=== PATIENT | female | born 1945 | race Caucasian/White ===

== ENCOUNTER 2017-01-23 11:55 | Outpatient (CLI) | payer MEDICARE, OTHER | END 2017-01-23 11:56 | disposition home or self-care (01) | DX: R10.9 Unspecified abdominal pain (principal) ==

== ENCOUNTER 2017-01-24 18:54 | Outpatient (CLI) | payer MEDICARE, OTHER | END 2017-01-24 18:55 | disposition home or self-care (01) | DX: N20.0 Calculus of kidney (principal); K76.0 Fatty (change of) liver, not elsewhere classified; R10.9 Unspecified abdominal pain ==

== ENCOUNTER 2017-03-01 10:08 | Outpatient (CLI) | payer MEDICARE, OTHER ==
[2017-03-01] MEDS ORDERED: SODIUM CHLORIDE 0.9% IV ONE (13:14)
[2017-03-01] MEDS ORDERED: SINCALIDE IV ONE (13:14)
== END 2017-03-01 10:09 | disposition home or self-care (01) ==
DX: K31.89 Other diseases of stomach and duodenum (principal)
CPT/HCPCS: 78227; A9537

== ENCOUNTER 2017-04-07 10:36 | Outpatient (CLI) | payer MEDICARE, OTHER ==
[2017-04-07 11:06] LABS: CREATININE 1.2 mg/dL (0.4-1.0)
== END 2017-04-07 10:37 | disposition home or self-care (01) ==
LOC: LAB 10:36
PROVIDERS: ATTEND Physician Assistant
DX: R10.9 Unspecified abdominal pain (principal)
CPT/HCPCS: 36415; 82565; 84520

== ENCOUNTER 2017-06-06 08:00 | Outpatient (CLI) | payer MEDICARE, OTHER | END 2017-06-06 08:01 | disposition home or self-care (01) | LOC: LAB.R 08:00 | PROVIDERS: ATTEND Internal Medicine | DX: N30.90 Cystitis, unspecified without hematuria (principal) | CPT/HCPCS: 87086 ==

== ENCOUNTER 2017-06-09 09:53 | Outpatient (CLI) | payer MEDICARE, OTHER | END 2017-06-09 09:54 | disposition home or self-care (01) | LOC: LAB.R 09:53 | PROVIDERS: ATTEND Internal Medicine | DX: N30.90 Cystitis, unspecified without hematuria (principal) | CPT/HCPCS: 87086 ==

== ENCOUNTER 2017-08-14 09:27 | Outpatient (CLI) | payer MEDICARE, OTHER ==
[2017-08-14 10:09] LABS: HEMOGLOBIN A1C 0.74 g/dL
== END 2017-08-14 09:28 | disposition home or self-care (01) ==
LOC: LAB 09:27
PROVIDERS: ATTEND Nurse Practitioner Primary Care
DX: E11.9 Type 2 diabetes mellitus without complications (principal); Z79.899 Other long term (current) drug therapy
CPT/HCPCS: 36415; 82947; 83036

== ENCOUNTER 2017-11-17 08:50 | Outpatient (CLI) | payer MEDICARE, OTHER ==
[2017-11-17 09:34] LABS: ALBUMIN 3.8 g/dL (3.2-5.5); ALBUMIN/GLOBULIN RATIO 1.1 (1.0-2.2); BILIRUBIN,TOTAL 0.6 mg/dL (0.2-1.0); CALCIUM 9.1 mg/dL (8.5-10.3); CREATININE 1.1 mg/dL (0.4-1.0); HB2 TOTAL 14.4 g/dL; HEMOGLOBIN A1C 0.82 g/dL; HEMOGLOBIN A1C % 7.4 % (4.6-6.2); TOTAL PROTEIN 7.3 g/dL (6.7-8.2)
== END 2017-11-17 08:51 | disposition home or self-care (01) ==
LOC: LAB 08:50
PROVIDERS: ATTEND Nurse Practitioner Primary Care
DX: E11.65 Type 2 diabetes mellitus with hyperglycemia (principal)
CPT/HCPCS: 36415; 80053; 82043; 83036

== ENCOUNTER 2017-12-25 13:33 | Outpatient (CLI) | payer MEDICARE, OTHER ==
--- NOTE | 2017-12-26 17:22 | Mammography Report ---
DATE OF SERVICE: 12/25/2017 DIGITAL SCREENING MAMMOGRAM: 12/25/2017 CLINICAL INDICATION: A 72-year-old with history of benign biopsy for screening. COMPARISON: 12/2015, 12/2014, 06/2012, 06/2011, 05/2010. TECHNIQUE: Routine CC and MLO projections were obtained of the breasts. FINDINGS: The breasts again demonstrate heterogeneously dense fibroglandular parenchyma bilaterally. Coarse, typically benign calcifications are present. Post-biopsy changes in the right breast are stable. No suspicious masses, clustered microcalcifications, or regions of architectural distortion are identified. IMPRESSION: BENIGN FINDINGS. RECOMMENDATIONS: Routine annual screening unless otherwise clinically indicated. BIRADS category 2 benign findings. STANDARD QUALIFYING STATEMENTS 1. This examination was reviewed with the aid of Computed-Aided Detection (CAD). 2. A negative or benign imaging report should not delay biopsy if clinically suspicious findings are present. Consider surgical consultation if warranted. More than 5% of cancers are not identified by imaging. 3. Dense breasts may obscure an underlying neoplasm. TD: 12/26/2017 17:21
== END 2017-12-25 13:34 | disposition home or self-care (01) ==
LOC: DI 13:33
PROVIDERS: ATTEND Nurse Practitioner Primary Care
DX: Z12.31 Encounter for screening mammogram for malignant neoplasm of breast (principal)
CPT/HCPCS: 77067

== ENCOUNTER 2018-02-20 08:38 | Outpatient (CLI) | payer MEDICARE, OTHER ==
[2018-02-20 09:20] LABS: HB2 TOTAL 14.2 g/dL; HEMOGLOBIN A1C 0.72 g/dL; HEMOGLOBIN A1C % 6.8 % (4.6-6.2)
== END 2018-02-20 08:39 | disposition home or self-care (01) ==
LOC: LAB 08:38
PROVIDERS: ATTEND Nurse Practitioner Primary Care
DX: E11.65 Type 2 diabetes mellitus with hyperglycemia (principal)
CPT/HCPCS: 36415; 82947; 83036

== ENCOUNTER 2018-04-02 08:58 | Outpatient (CLI) | payer MEDICARE, OTHER ==
[2018-04-02 09:31] LABS: CREATININE 1.2 mg/dL (0.4-1.0)
== END 2018-04-02 08:59 | disposition home or self-care (01) ==
LOC: LAB 08:58
PROVIDERS: ATTEND Nurse Practitioner Primary Care
DX: R91.1 Solitary pulmonary nodule (principal)
CPT/HCPCS: 36415; 82565

== ENCOUNTER 2018-04-05 07:52 | Outpatient (CLI) | payer MEDICARE, OTHER ==
--- NOTE | 2018-04-05 10:05 | CT Report ---
REVISED: THIS REPORT WAS ORIGINALLY SIGNED ON04/05/2018 @ 1127. NO CHANGES WERE MADE TO THE REPORT. THE ORIGINAL [facility] REQUISITION WAS REPRINTED ON . CT CHEST WITHOUT CONTRAST: 04/05/2018 CLINICAL INDICATION: Followup pulmonary nodule on outside study. TECHNIQUE: Axial CT images of the chest were obtained without intravenous contrast. COMPARISON: Comparison is made to report of outside abdominal CT of 04/10/2017. If images become available for direct comparison, an addendum will be issued. FINDINGS: The heart and great vessels demonstrate mild atherosclerotic calcification. No hilar or mediastinal lymphadenopathy is appreciated. The lungs demonstrate emphysematous changes. The nodule in the posterolateral right lower lobe measures 8 x 7 mm. No other pulmonary nodule is identified. No focal infiltrate, effusion, or pneumothorax is present. Osseous structures demonstrate degenerative changes. Limited evaluation of upper abdominal structures demonstrates minimal fullness of the medial limb of the left adrenal gland and multiple renal cysts, with a hyperdense cyst arising from the upper pole of the left kidney. IMPRESSION: 8 X 7 MM NODULE IN THE POSTEROLATERAL RIGHT LOWER LOBE. FOLLOWUP CT IN 3-6 MONTHS IS RECOMMENDED BY [employer] IN THIS HIGH RISK PATIENT. CT DOSE REDUCTION STATEMENT In accordance with CT protocol optimization, one or more of the following dose reduction techniques were utilized for this exam: automated exposure control, adjustment of mA and/or KV based on patient size, or use of iterative reconstructive technique. TD: 04/05/2018 09:28 ELIER
== END 2018-04-05 07:53 | disposition home or self-care (01) ==
LOC: DI 07:52
PROVIDERS: ATTEND Nurse Practitioner Primary Care
DX: R91.1 Solitary pulmonary nodule (principal)
CPT/HCPCS: 71250

== ENCOUNTER 2018-05-10 08:16 | Outpatient (CLI) | payer MEDICARE, OTHER ==
[2018-05-10 08:52] LABS: BASOPHILS # (AUTO) 0.1 10^3/uL (0.0-0.1); BASOPHILS % (AUTO) 0.7 %; EOSINOPHILS # (AUTO) 0.3 10^3/uL (0.0-0.7); EOSINOPHILS % (AUTO) 2.9 %; HGB - HEMOGLOBIN 12.4 g/dL (12.0-16.0); LYMPHOCYTES # (AUTO) 2.1 10^3/uL (1.5-3.5); LYMPHOCYTES % (AUTO) 24.6 %; MEAN CORPUSCULAR HEMOGLOBIN 29.5 pg (27.0-31.0); MEAN CORPUSCULAR HGB CONC 33.3 g/dL (32.0-36.0); MEAN CORPUSCULAR VOLUME 88.4 fL (81.0-99.0); MEAN PLATELET VOLUME 9.8 fL (7.9-10.8); MONOCYTES # (AUTO) 0.7 10^3/uL (0.0-1.0); MONOCYTES % (AUTO) 8.7 %; NEUTROPHILS # (AUTO) 5.4 10^3/uL (1.5-6.6); NEUTROPHILS % (AUTO) 63.1 %; PLT - PLATELET COUNT 196 10^3/uL (130-450); RED BLOOD COUNT 4.19 10^6/uL (4.20-5.40); WHITE BLOOD COUNT 8.6 x10^3/uL (4.8-10.8)
[2018-05-10 08:58] LABS: ALBUMIN 4.1 g/dL (3.2-5.5); ALBUMIN/GLOBULIN RATIO 1.2 (1.0-2.2); ALKALINE PHOSPHATASE 53 IU/L (42-121); ALT ALANINE AMINOTRANSFERASE 21 IU/L (10-60); AST ASPARTATE AMINOTRANSFERASE 21 IU/L (10-42); BILIRUBIN,TOTAL 0.4 mg/dL (0.2-1.0); BUN - BLOOD UREA NITROGEN 18 mg/dL (6-20); CALCIUM 9.2 mg/dL (8.5-10.3); CARBON DIOXIDE - CO2 29 mmol/L (21-32); CHLORIDE 100 mmol/L (101-111); CHOL/HDL RATIO 2.9 (<4.4); CHOLESTEROL 103 mg/dL; GFR - MDRD 54 (>89); GLUCOSE 158 mg/dL (70-100); HDL CHOLESTEROL 35 mg/dL; LDL CHOLESTEROL,CALCULATED 47 mg/dL; LDL/HDL RATIO 1.3 (<4.4); SODIUM 137 mmol/L (135-145); TOTAL PROTEIN 7.5 g/dL (6.7-8.2); VLDL CHOLESTEROL 21 mg/dL
[2018-05-10 09:25] LABS: HB2 TOTAL 13.8 g/dL; HEMOGLOBIN A1C 0.66 g/dL; HEMOGLOBIN A1C % 6.5 % (4.6-6.2)
== END 2018-05-10 08:17 | disposition home or self-care (01) ==
LOC: LAB 08:16
PROVIDERS: ATTEND Nurse Practitioner Primary Care
DX: M81.8 Other osteoporosis without current pathological fracture (principal); E88.81 Metabolic syndrome and other insulin resistance; Z79.899 Other long term (current) drug therapy; D12.6 Benign neoplasm of colon, unspecified; R91.1 Solitary pulmonary nodule; E03.9 Hypothyroidism, unspecified; I10 Essential (primary) hypertension; E78.5 Hyperlipidemia, unspecified; E11.9 Type 2 diabetes mellitus without complications
CPT/HCPCS: 36415; 80053; 80061; 82043; 82306; 83036; 83721; 84443; 85025

== ENCOUNTER 2019-04-01 08:00 | Outpatient (CLI) | payer MEDICARE, OTHER ==
[2019-04-01 16:17] LABS: CALCIUM 9.2 mg/dL (8.5-10.3)
[2019-04-01 16:23] LABS: HB2 TOTAL 13.1 g/dL; HEMOGLOBIN A1C 0.66 g/dL; HEMOGLOBIN A1C % 6.8 % (4.6-6.2)
== END 2019-04-01 23:59 | disposition home or self-care (01) ==
LOC: LAB 08:00
PROVIDERS: ATTEND Nurse Practitioner
DX: E11.65 Type 2 diabetes mellitus with hyperglycemia (principal)
CPT/HCPCS: 36415; 80048; 83036

== ENCOUNTER 2019-07-26 17:10 | Outpatient (CLI) | payer MEDICARE, OTHER ==
--- NOTE | 2019-07-29 14:33 | Ultrasound Report ---
Reason: RENAL CYST Procedure Date: 07/26/2019 Accession Number: [id number] / [id number] Procedure: US - Retroperitoneal CPT Code: FULL RESULT: EXAM: RENAL ULTRASOUND EXAM DATE: 07/26/2019 06:30 PM. CLINICAL HISTORY: Renal cysts. COMPARISON: ABDOMEN TECHNIQUE: Real-time scanning was performed with static images obtained. FINDINGS: Right Kidney: 11.2 x 4.1 x 5.5 cm. There are multiple simple renal cortical cysts, the largest one in the mid cortex, 2.7 x 2.7 x 2.8 cm. No stones, contour-deforming masses, or hydronephrosis. Left Kidney: 11.6 x 4.8 x 9.2 cm. There are multiple simple renal cortical cysts, the largest one in the upper cortex, 5.6 x 6.6 x 6.5 cm. There is mild dilatation of the left renal pelvis without visualized stones, filling defect or contour-deforming masses. Bladder: Bilateral jets seen. The prevoid bladder volume was 346 cc. The postvoid bladder volume was 14.2 cc. Other: None. IMPRESSION: 1. Bilateral multiple simple renal cortical cysts. 2. Negative for right renal stones, hydronephrosis or contour-deforming renal mass. 3. Mild dilatation of the left renal pelvis with preserved left ureteral jets, without visualized filling defect or stone, uncertain etiology. If there is clinical concern for obstructing lesion in the left ureter or left renal stone, further evaluation with CT KUB is recommended. RADIA
== END 2019-07-26 17:11 | disposition home or self-care (01) ==
LOC: DI 17:10
PROVIDERS: ATTEND Urology
DX: Q61.02 Congenital multiple renal cysts (principal)
CPT/HCPCS: 76770

== ENCOUNTER 2019-08-15 14:39 | Outpatient (CLI) | payer MEDICARE, OTHER ==
--- NOTE | 2019-08-16 16:19 | XRAY Report ---
Reason: ACUT L HEEL PAIN Procedure Date: 08/15/2019 Accession Number: [id number] / [id number] Procedure: XR - Calcaneus LT CPT Code: FULL RESULT: EXAM: LEFT CALCANEUS RADIOGRAPHY, 2 VIEWS EXAM DATE: 08/15/2019 03:06 PM. CLINICAL HISTORY: Acute left heel pain in a 74-year-old female. COMPARISON: None. TECHNIQUE: Frontal and lateral views. FINDINGS: Bones: Moderate hypertrophic spurring of the tibial spines and patella. No fractures or bone lesions. Joints: Normal. No effusion. No subluxations. The ankle mortise is normally aligned. Soft Tissues: Mild to moderate soft tissue swelling along the posterior and inferior aspect of the calcaneus. No soft tissue gas or foreign body. IMPRESSION: Moderate hypertrophic spurring of the tibial spines and patella with underlying soft tissue swelling. No joint abnormality. No fracture, lytic or destructive process. RADIA
== END 2019-08-15 14:40 | disposition home or self-care (01) ==
LOC: DI 14:39
PROVIDERS: ATTEND Podiatrist
DX: M77.8 Other enthesopathies, not elsewhere classified (principal)

== ENCOUNTER 2019-08-19 14:09 | Outpatient (CLI) | payer MEDICARE, OTHER ==
--- NOTE | 2019-08-20 14:31 | Mammography Report ---
Reason: SCREENING MAMMO Procedure Date: 08/19/2019 Accession Number: [id number] / [id number] Procedure: CRYS - Screening Mammo w/Corey CPT Code: FULL RESULT: EXAM: Screening Mammo w/Corey DATE: 08/19/2019 3:33 PM CLINICAL HISTORY: Screening TECHNIQUE: (B) - Bilateral CC and MLO views were obtained. COMPARISON: 12/25/2017, 12/29/2015 PARENCHYMAL PATTERN: (D) - The breasts demonstrate heterogeneously dense fibroglandular parenchyma bilaterally. FINDINGS: The patient refused the right MLO 3-D series, but a 2-D right MLO was obtained. There are no suspicious masses, calcifications, or areas of distortion. IMPRESSION: Negative examination. BI-RADS category 1. RECOMMENDATION: (ANNUAL) - Recommend routine annual screening mammography. BI-RADS CATEGORY: (1) - Negative. STANDARD QUALIFYING STATEMENTS: 1. This examination was not reviewed with the aid of Computer-Aided Detection (CAD). 2. A negative or benign imaging report should not preclude biopsy if clinically suspicious findings are present. 3. Dense breasts may obscure an underlying neoplasm. 4. This examination was reviewed with the aid of 3D breast imaging (tomosynthesis).
== END 2019-08-19 14:10 | disposition home or self-care (01) ==
LOC: DI 14:09
DX: Z12.31 Encounter for screening mammogram for malignant neoplasm of breast (principal)
CPT/HCPCS: 77063; 77067

== ENCOUNTER 2019-08-23 08:55 | Outpatient (CLI) | payer MEDICARE, OTHER ==
[2019-08-23 09:08] LABS: BASOPHILS # (AUTO) 0.1 10^3/uL (0.0-0.1); BASOPHILS % (AUTO) 0.8 %; EOSINOPHILS # (AUTO) 0.3 10^3/uL (0.0-0.7); EOSINOPHILS % (AUTO) 2.9 %; HGB - HEMOGLOBIN 13.1 g/dL (12.0-16.0); LYMPHOCYTES # (AUTO) 2.6 10^3/uL (1.5-3.5); LYMPHOCYTES % (AUTO) 30.3 %; MEAN CORPUSCULAR HEMOGLOBIN 29.4 pg (27.0-31.0); MEAN CORPUSCULAR HGB CONC 32.6 g/dL (32.0-36.0); MEAN CORPUSCULAR VOLUME 90.1 fL (81.0-99.0); MEAN PLATELET VOLUME 11.7 fL (7.9-10.8); MONOCYTES # (AUTO) 0.8 10^3/uL (0.0-1.0); MONOCYTES % (AUTO) 9.3 %; NEUTROPHILS # (AUTO) 4.8 10^3/uL (1.5-6.6); NEUTROPHILS % (AUTO) 56.4 %; PLT - PLATELET COUNT 219 10^3/uL (130-450); RED BLOOD COUNT 4.46 10^6/uL (4.20-5.40); RED CELL DISTRIBUTION WIDTH 14.6 % (12.0-15.0); WHITE BLOOD COUNT 8.6 x10^3/uL (4.8-10.8)
[2019-08-23 09:25] LABS: HB2 TOTAL 14.1 g/dL; HEMOGLOBIN A1C 0.66 g/dL; HEMOGLOBIN A1C % 6.4 % (4.6-6.2)
[2019-08-23 09:40] LABS: ALBUMIN 3.9 g/dL (3.2-5.5); ALBUMIN/GLOBULIN RATIO 1.1 (1.0-2.2); ALKALINE PHOSPHATASE 55 IU/L (42-121); ALT ALANINE AMINOTRANSFERASE 22 IU/L (10-60); AST ASPARTATE AMINOTRANSFERASE 19 IU/L (10-42); BILIRUBIN,TOTAL 0.8 mg/dL (0.2-1.0); BUN - BLOOD UREA NITROGEN 17 mg/dL (6-20); CALCIUM 9.1 mg/dL (8.5-10.3); CARBON DIOXIDE - CO2 26 mmol/L (21-32); CHLORIDE 103 mmol/L (101-111); CHOLESTEROL 101 mg/dL; CREATININE 1.2 mg/dL (0.4-1.0); GFR - MDRD 44 (>89); GLUCOSE 157 mg/dL (70-100); HDL CHOLESTEROL 34 mg/dL; LDL CHOLESTEROL,CALCULATED 50 mg/dL; LDL/HDL RATIO 1.5 (<4.4); SODIUM 140 mmol/L (135-145); TOTAL PROTEIN 7.5 g/dL (6.7-8.2); VLDL CHOLESTEROL 17 mg/dL
== END 2019-08-23 08:56 | disposition home or self-care (01) ==
LOC: LAB 08:55
PROVIDERS: ATTEND Nurse Practitioner
DX: J44.9 Chronic obstructive pulmonary disease, unspecified (principal); M85.80 Other specified disorders of bone density and structure, unspecified site; M19.90 Unspecified osteoarthritis, unspecified site; E11.8 Type 2 diabetes mellitus with unspecified complications; E78.5 Hyperlipidemia, unspecified; E03.9 Hypothyroidism, unspecified; I10 Essential (primary) hypertension
CPT/HCPCS: 36415; 80053; 80061; 82306; 83036; 83721; 84443; 85025

== ENCOUNTER 2020-04-06 08:29 | Outpatient (CLI) | payer MEDICARE, OTHER ==
[2020-04-06 09:08] LABS: CALCIUM 9.2 mg/dL (8.5-10.3); CREATININE 1.1 mg/dL (0.4-1.0)
[2020-04-06 09:16] LABS: HB2 TOTAL 13.1 g/dL; HEMOGLOBIN A1C 0.62 g/dL; HEMOGLOBIN A1C % 6.5 % (4.6-6.2)
== END 2020-04-06 08:30 | disposition home or self-care (01) ==
LOC: LAB 08:29
PROVIDERS: ATTEND Family Medicine
DX: E11.65 Type 2 diabetes mellitus with hyperglycemia (principal); E78.5 Hyperlipidemia, unspecified; E03.9 Hypothyroidism, unspecified; I10 Essential (primary) hypertension
CPT/HCPCS: 36415; 80048; 83036

== ENCOUNTER 2020-11-19 14:11 | Outpatient (CLI) | payer MEDICARE, OTHER ==
[2020-11-19 14:34] LABS: BASOPHILS # (AUTO) 0.1 10^3/uL (0.0-0.1); BASOPHILS % (AUTO) 0.6 %; EOSINOPHILS # (AUTO) 0.3 10^3/uL (0.0-0.7); EOSINOPHILS % (AUTO) 3.1 %; HCT - HEMATOCRIT 41.8 % (37.0-47.0); HGB - HEMOGLOBIN 13.6 g/dL (12.0-16.0); LYMPHOCYTES # (AUTO) 2.5 10^3/uL (1.5-3.5); LYMPHOCYTES % (AUTO) 28.7 %; MEAN CORPUSCULAR HEMOGLOBIN 29.4 pg (27.0-31.0); MEAN CORPUSCULAR HGB CONC 32.5 g/dL (32.0-36.0); MEAN CORPUSCULAR VOLUME 90.5 fL (81.0-99.0); MEAN PLATELET VOLUME 11.5 fL (7.9-10.8); MONOCYTES # (AUTO) 0.8 10^3/uL (0.0-1.0); MONOCYTES % (AUTO) 9.2 %; NEUTROPHILS % (AUTO) 58.1 %; PLT - PLATELET COUNT 209 10^3/uL (130-450); RED BLOOD COUNT 4.62 10^6/uL (4.20-5.40); RED CELL DISTRIBUTION WIDTH 14.4 % (12.0-15.0); WHITE BLOOD COUNT 8.6 x10^3/uL (4.8-10.8)
[2020-11-19 14:44] LABS: CALCIUM 9.3 mg/dL (8.5-10.3); CREATININE 1.3 mg/dL (0.4-1.0); POTASSIUM 3.8 mmol/L (3.5-5.0)
[2020-11-19 15:05] LABS: THYROID STIMULATING HORMONE 3.16 uIU/mL (0.34-5.60)
[2020-11-19 15:06] LABS: FREE T3 3.48 pg/mL (2.5-3.9)
[2020-11-19 15:07] LABS: FREE T4 (FREE THYROXINE) 1.16 ng/dL (0.58-1.64)
[2020-11-19 19:40] LABS: ESTIMATED AVERAGE GLUCOSE 154 mg/dL (70-100)
== END 2020-11-19 14:12 | disposition home or self-care (01) ==
LOC: LAB 14:11
PROVIDERS: ATTEND Family Medicine
DX: E11.65 Type 2 diabetes mellitus with hyperglycemia (principal); E03.9 Hypothyroidism, unspecified
CPT/HCPCS: 36415; 80048; 83036; 84439; 84443; 84481; 85025

== ENCOUNTER 2021-05-20 08:38 | Outpatient (CLI) | payer MEDICARE, OTHER ==
[2021-05-20 09:06] LABS: BASOPHILS # (AUTO) 0.1 10^3/uL (0.0-0.1); BASOPHILS % (AUTO) 0.6 %; EOSINOPHILS # (AUTO) 0.3 10^3/uL (0.0-0.7); EOSINOPHILS % (AUTO) 3.3 %; HCT - HEMATOCRIT 41.4 % (37.0-47.0); HGB - HEMOGLOBIN 13.4 g/dL (12.0-16.0); LYMPHOCYTES # (AUTO) 1.6 10^3/uL (1.5-3.5); LYMPHOCYTES % (AUTO) 19.1 %; MEAN CORPUSCULAR HEMOGLOBIN 28.9 pg (27.0-31.0); MEAN CORPUSCULAR HGB CONC 32.4 g/dL (32.0-36.0); MEAN CORPUSCULAR VOLUME 89.4 fL (81.0-99.0); MEAN PLATELET VOLUME 11.5 fL (7.9-10.8); MONOCYTES # (AUTO) 0.8 10^3/uL (0.0-1.0); NEUTROPHILS # (AUTO) 5.6 10^3/uL (1.5-6.6); NEUTROPHILS % (AUTO) 66.8 %; PLT - PLATELET COUNT 202 10^3/uL (130-450); RED BLOOD COUNT 4.63 10^6/uL (4.20-5.40); RED CELL DISTRIBUTION WIDTH 14.6 % (12.0-15.0); WHITE BLOOD COUNT 8.4 x10^3/uL (4.8-10.8)
[2021-05-20 09:29] LABS: CREATININE,URINE 53.2 mg/dL; MICROALBUM/CREATININE RATIO,UR 11.3 ug/mg (<30.0); MICROALBUMIN,URINE 0.6 mg/dL (0-300.0)
[2021-05-20 09:33] LABS: THYROID STIMULATING HORMONE 2.26 uIU/mL (0.34-5.60)
[2021-05-20 09:43] LABS: ALBUMIN 4.1 g/dL (3.2-5.5); ALBUMIN/GLOBULIN RATIO 1.2 (1.0-2.2); ALKALINE PHOSPHATASE 66 IU/L (42-121); ALT ALANINE AMINOTRANSFERASE 24 IU/L (10-60); AST ASPARTATE AMINOTRANSFERASE 19 IU/L (10-42); BILIRUBIN,TOTAL 0.7 mg/dL (0.2-1.0); BUN - BLOOD UREA NITROGEN 14 mg/dL (6-20); CALCIUM 9.1 mg/dL (8.5-10.3); CARBON DIOXIDE - CO2 25 mmol/L (21-32); CHLORIDE 103 mmol/L (101-111); CHOL/HDL RATIO 3.2 (<4.4); CHOLESTEROL 111 mg/dL; GFR - MDRD 54 (>89); GLUCOSE 156 mg/dL (70-100); HDL CHOLESTEROL 35 mg/dL; LDL CHOLESTEROL,CALCULATED 60 mg/dL; LDL/HDL RATIO 1.7 (<4.4); POTASSIUM 3.9 mmol/L (3.5-5.0); SODIUM 137 mmol/L (135-145); TOTAL PROTEIN 7.4 g/dL (6.7-8.2); TRIGLYCERIDES 82 mg/dL; VLDL CHOLESTEROL 16 mg/dL
[2021-05-20 12:49] LABS: ESTIMATED AVERAGE GLUCOSE 140 mg/dL (70-100); HEMOGLOBIN A1c% 6.5 % (4.27-6.07)
== END 2021-05-20 08:39 | disposition home or self-care (01) ==
LOC: LAB 08:38
PROVIDERS: ATTEND Family Medicine
DX: E11.40 Type 2 diabetes mellitus with diabetic neuropathy, unspecified (principal); J44.9 Chronic obstructive pulmonary disease, unspecified; M85.80 Other specified disorders of bone density and structure, unspecified site; M19.90 Unspecified osteoarthritis, unspecified site; E03.9 Hypothyroidism, unspecified; I10 Essential (primary) hypertension
CPT/HCPCS: 36415; 80053; 80061; 82043; 82570; 83036; 83721; 84443; 85025

== ENCOUNTER 2021-08-03 07:46 | Outpatient (CLI) | payer MEDICARE ==
--- NOTE | 2021-08-04 12:00 | Mammography Report ---
BILATERAL DIGITAL DIAGNOSTIC MAMMOGRAM 3D/2D: 08/03/2021 CLINICAL: Palpable left breast lump. Comparison is made to exams dated: 08/19/2019 mammogram, 12/25/2017 mammogram, 12/29/2015 mammogram, 01/06 mammogram, 07/18/2012 mammogram, and 07/20/2011 mammogram - [facility]. The ti ssue of both breasts is heterogeneously dense. This may lower the sensitivity of mammography. No significant masses, calcifications, or other findings are seen in either breast. Stable subtle architectural distortion of the posterior depth, superior aspect and middle depth of up per outer quadrant consistent with reported history of two prior biopsies. IMPRESSION: INCOMPLETE: NEEDS ADDITIONAL IMAGING EVALUATION There is no abnormality seen in the left breast to correspond with the area of clinical concern and p alpable abnormality indicated by triangular marker in the middle depth in the lower aspect, however, an ultrasound is recommended for further evaluation and is scheduled to immediately follow this exami nation. This exam was interpreted at Station ID: [id number]. NOTE: For mammograms, a report in lay terms will be sent to the patient. Approximately 15% of breast malignancies will not be visualized mammographically. In the management of a palpable breast mass, a negative mammogram must not discourage biopsy of a clinically suspicious lesion. Electronically Signed By: Andrew Luis M.D. aty/:08/03/2021 08:49:07 ACR BI-RADS Category 0: Incomplete 3340F PARENCHYMAL PATTERN: (D) - The breast(s) demonstrate(s) heterogeneously dense fibroglandular betsy trejo. BI-RADS CATEGORY: (0) - 0 Ultrasound [id number] Immediate follow-up LATERALITY: (L)
--- NOTE | 2021-08-04 12:01 | Ultrasound Report ---
LIMITED ULTRASOUND OF LEFT BREAST: 08/03/2021 CLINICAL: Palpable left breast lump. Comparison is made to exams dated: 08/03/2021 mammogram, 08/19/2019 mammogram, 12/25/2017 mammogram, 12/29 mammogram, 01/06/2015 mammogram, and 07/18/2012 mammogram - [facility]. Real-time ultrasound of the left breast 6-7 o'clock region was performed. Arvizu scale images of the real-time examination were reviewed. No significant abnormalities were seen sonographically in the left breast. IMPRESSION: NEGATIVE There is no sonographic evidence of malignancy. There are no abnormalities seen in the left breast to correspond with the areas of clinical concern a nd palpable abnormalities at 6 and 7 o'clock, however, recommend clinical follow up for persistent or worsening symptoms, or development of any clinically suspicious findings. A 1 year screening mammogram is recommended. Findings and recommendations were conveyed to the patient during today's evaluation. This exam was interpreted at Station ID: [id number]. Electronically Signed By: Andrew Luis M.D. aty/:08/03/2021 09:23:05 Ultrasound BI-RADS: 1 Negative BI-RADS CATEGORY: (1) - 1 RECOMMENDATION: (ANNUAL) - Recommend routine annual screening mammography. [id number] 1 year screening LATERALITY: (B)
== END 2021-08-03 07:47 | disposition home or self-care (01) ==
LOC: DI 07:46
PROVIDERS: ATTEND Family Medicine
DX: N63.0 Unspecified lump in unspecified breast (principal); R92.8 Other abnormal and inconclusive findings on diagnostic imaging of breast

== ENCOUNTER 2021-09-17 10:48 | Outpatient (CLI) | payer MEDICARE ==
--- NOTE | 2021-09-20 11:18 | CT Report ---
PROCEDURE: CHEST WO INDICATIONS: LUNG CA TECHNIQUE: Noncontrast 1mm axial images were acquired from the pulmonary apices to the posterior costophrenic an gles. Axial 5 mm soft tissue kernel reconstructions were performed as well as 8 mm axial MIP and cor onal and sagittal 5 mm reformations. For radiation dose reduction, the following was used: automate d exposure control, adjustment of mA and/or kV according to patient size. COMPARISON: CT chest 04/05/2018 FINDINGS: Image quality: Excellent. Lungs and pleura: No acute air space opacities. No pleural effusions or pneumothorax. Central and peripheral airways are patent and normal in caliber. Previously identified nodules in the posterior lateral right lower lobe on CT chest in 2018 is no longer visualized. Groundglass appearing nodule wi thin the right upper lobe measuring 6 mm on series 4 image 59 is unchanged, as is 4 mm nodule in the left upper lobe on series 4 image 51. No new nodules are identified. Emphysematous changes are presen t with bulla, unchanged.. Mediastinum: Heart size is normal. No pericardial effusion. No mediastinal adenopathy by size crit eria. Thoracic aorta and central pulmonary arteries are normal in size. Esophagus is normal in perfecto andrew. No hiatal hernia. Bones and chest wall: No suspicious bony lesions. No vertebral body compression fractures. No axil randell or supraclavicular adenopathy by size criteria. The thyroid is normal in size and there are no incidental findings. Abdomen: Bilateral low-attenuation renal cysts as well as punctate nonobstructing calcifications are unchanged. Superior pole hyperdense mass measuring 5.4 cm has increased in size from 3.5 cm in 2018. Visualized upper abdominal solid organs and bowel loops appear normal in the absence of contrast. IMPRESSION: 1. Previously identified nodules in the posterior lateral right lower lobe in 2018 are no longer visu alized. 2. Subcentimeter upper lobe groundglass appearing nodules are unchanged. 3. Increased size of presumed hyperdense left renal cyst. As clinically indicated, ultrasound may be obtained for additional follow-up evaluation. CLINICAL RECOMMENDATION STATEMENTS: In patients <35 years with an ITN detected on CT, MRI, or extrathyroidal ultrasound, the Committee re commends further evaluation with dedicated thyroid ultrasound if the nodule is "e1 cm and has no susp icious imaging features, and if the patient has normal life expectancy. In patients "e35 years with an ITN detected on CT, MRI, or extrathyroidal ultrasound, the Committee r ecommends further evaluation with dedicated thyroid ultrasound if the nodule is "e1.5 cm and has no s uspicious imaging features, and if the patient has normal life expectancy. (ACR, 2014) Reviewed by: Rowena Amato MD on 09/20/2021 11:17 AM PDT Approved by: Rowena Amato MD on 09/20/2021 11:17 AM PDT Station ID: [id number]
== END 2021-09-17 10:49 | disposition home or self-care (01) ==
LOC: DI 10:48
PROVIDERS: ATTEND Nurse Practitioner
DX: Z08 Encounter for follow-up examination after completed treatment for malignant neoplasm (principal); Z85.118 Personal history of other malignant neoplasm of bronchus and lung; R91.8 Other nonspecific abnormal finding of lung field

== ENCOUNTER 2021-10-11 09:47 | Outpatient (CLI) | payer MEDICARE ==
[2021-10-11 10:17] LABS: CALCIUM 9.1 mg/dL (8.5-10.3); CREATININE 1.1 mg/dL (0.4-1.0); POTASSIUM 4.1 mmol/L (3.5-5.0)
[2021-10-11 10:48] LABS: ESTIMATED AVERAGE GLUCOSE 143 mg/dL (70-100); HEMOGLOBIN A1c% 6.6 % (4.27-6.07)
== END 2021-10-11 09:48 | disposition home or self-care (01) ==
LOC: LAB 09:47
PROVIDERS: ATTEND Family Medicine
DX: E11.9 Type 2 diabetes mellitus without complications (principal); E78.5 Hyperlipidemia, unspecified; I10 Essential (primary) hypertension
CPT/HCPCS: 36415; 80048; 82043; 82570; 83036

== ENCOUNTER 2022-01-10 09:44 | Outpatient (CLI) | payer MEDICARE ==
[2022-01-10 10:39] LABS: BASOPHILS % (AUTO) 0.5 %; EOSINOPHILS # (AUTO) 0.2 10^3/uL (0.0-0.7); EOSINOPHILS % (AUTO) 2.8 %; HCT - HEMATOCRIT 40.8 % (37.0-47.0); HGB - HEMOGLOBIN 13.2 g/dL (12.0-16.0); LYMPHOCYTES # (AUTO) 2.1 10^3/uL (1.5-3.5); LYMPHOCYTES % (AUTO) 27.7 %; MEAN CORPUSCULAR HEMOGLOBIN 28.6 pg (27.0-31.0); MEAN CORPUSCULAR HGB CONC 32.4 g/dL (32.0-36.0); MEAN CORPUSCULAR VOLUME 88.5 fL (81.0-99.0); MEAN PLATELET VOLUME 11.4 fL (7.9-10.8); MONOCYTES # (AUTO) 0.7 10^3/uL (0.0-1.0); MONOCYTES % (AUTO) 9.4 %; NEUTROPHILS # (AUTO) 4.5 10^3/uL (1.5-6.6); NEUTROPHILS % (AUTO) 59.3 %; PLT - PLATELET COUNT 197 10^3/uL (130-450); RED BLOOD COUNT 4.61 10^6/uL (4.20-5.40); RED CELL DISTRIBUTION WIDTH 14.6 % (12.0-15.0); WHITE BLOOD COUNT 7.6 x10^3/uL (4.8-10.8)
[2022-01-10 10:49] LABS: ALBUMIN 3.9 g/dL (3.2-5.5); ALBUMIN/GLOBULIN RATIO 1.3 (1.0-2.2); ALKALINE PHOSPHATASE 65 IU/L (42-121); ALT ALANINE AMINOTRANSFERASE 21 IU/L (10-60); AST ASPARTATE AMINOTRANSFERASE 18 IU/L (10-42); BILIRUBIN,TOTAL 0.7 mg/dL (0.2-1.0); BUN - BLOOD UREA NITROGEN 19 mg/dL (6-20); CALCIUM 9.1 mg/dL (8.5-10.3); CARBON DIOXIDE - CO2 26 mmol/L (21-32); CHLORIDE 102 mmol/L (101-111); CHOL/HDL RATIO 2.9 (<4.4); CHOLESTEROL 118 mg/dL; CREATININE 1.3 mg/dL (0.4-1.0); GFR - MDRD 40 (>89); GLUCOSE 156 mg/dL (70-100); HDL CHOLESTEROL 41 mg/dL; LDL CHOLESTEROL,CALCULATED 54 mg/dL; LDL/HDL RATIO 1.3 (<4.4); SODIUM 137 mmol/L (135-145); TRIGLYCERIDES 114 mg/dL; VLDL CHOLESTEROL 23 mg/dL
[2022-01-10 11:01] LABS: THYROID STIMULATING HORMONE 2.88 uIU/mL (0.34-5.60)
[2022-01-10 12:35] LABS: ESTIMATED AVERAGE GLUCOSE 143 mg/dL (70-100); HEMOGLOBIN A1c% 6.6 % (4.27-6.07)
[2022-01-10 13:26] LABS: CREATININE,URINE 256.1 mg/dL; MICROALBUM/CREATININE RATIO,UR 29.3 ug/mg (<30.0); MICROALBUMIN,URINE 7.5 mg/dL (0-300.0)
== END 2022-01-10 09:45 | disposition home or self-care (01) ==
LOC: LAB 09:44
PROVIDERS: ATTEND Family Medicine
DX: J45.991 Cough variant asthma (principal); C34.31 Malignant neoplasm of lower lobe, right bronchus or lung; E03.9 Hypothyroidism, unspecified; I10 Essential (primary) hypertension; E11.9 Type 2 diabetes mellitus without complications
CPT/HCPCS: 36415; 80053; 80061; 82043; 82570; 83036; 83721; 84443; 85025

== ENCOUNTER 2022-03-24 10:45 | Outpatient (CLI) | payer MEDICARE ==
--- NOTE | 2022-03-24 13:16 | CT Report ---
PROCEDURE: CHEST WO INDICATIONS: LUNG CA TECHNIQUE: Noncontrast 1mm axial images were acquired from the pulmonary apices to the posterior costophrenic an gles. Axial 5 mm soft tissue kernel reconstructions were performed as well as 8 mm axial MIP and cor onal and sagittal 5 mm reformations. For radiation dose reduction, the following was used: automate d exposure control, adjustment of mA and/or kV according to patient size. COMPARISON: CT chest dated 09/17/2021, retroperitoneal ultrasound dated 07/26/2019. FINDINGS: Image quality: Excellent. Lungs and pleura: Mild centrilobular emphysema. There is a stable 3 mm pulmonary nodule in the right lower lobe on image 183/4 of the current study and image 188/6 of the previous study. There is a lachelle cified granuloma present in the right upper lobe on image 188/4. No acute air space opacities. No pl eural effusions or pneumothorax. Central and peripheral airways are patent and normal in caliber. Mediastinum: Heart size is normal. No pericardial effusion. No mediastinal adenopathy by size crit eria. Thoracic aorta and central pulmonary arteries are normal in size. Esophagus is normal in perfecto andrew. No hiatal hernia. Bones and chest wall: No suspicious bony lesions. No vertebral body compression fractures. No axil randell or supraclavicular adenopathy by size criteria. The thyroid is normal in size and there are no incidental findings. Abdomen: Again noted is a spherical exophytic hyperdense mass off of the upper pole of the left kidne y. It is assumed to represent a hyperdense cyst, but has increased in size over time. It measures 5.6 cm maximum diameter. Also present is a large exophytic middle pole left renal cyst. IMPRESSION: 1. Mild centrilobular emphysema. 2. Stable 3 mm right lower lobe pulmonary nodule. Patient also has a calcified granuloma. 3. No significant changes since the most recent prior study. 4. 5.6 cm presumed hyperdense cyst off the upper pole left kidney. This lesion has been growing over time. Consider renal ultrasound to exclude a solid lesion. CLINICAL RECOMMENDATION STATEMENTS: In patients <35 years with an ITN detected on CT, MRI, or extrathyroidal ultrasound, the Committee re commends further evaluation with dedicated thyroid ultrasound if the nodule is "e1 cm and has no susp icious imaging features, and if the patient has normal life expectancy. In patients "e35 years with an ITN detected on CT, MRI, or extrathyroidal ultrasound, the Committee r ecommends further evaluation with dedicated thyroid ultrasound if the nodule is "e1.5 cm and has no s uspicious imaging features, and if the patient has normal life expectancy. (ACR, 2014) Reviewed by: Desmond Garcia MD on 03/24/2022 1:15 PM PDT Approved by: Desmond Garcia MD on 03/24/2022 1:15 PM PDT Station ID: [id number]
== END 2022-03-24 10:46 | disposition home or self-care (01) ==
LOC: DI 10:45
PROVIDERS: ATTEND Physician Assistant Surgical
DX: J43.2 Centrilobular emphysema (principal); C34.31 Malignant neoplasm of lower lobe, right bronchus or lung

== ENCOUNTER 2022-04-14 09:50 | Outpatient (CLI) | payer MEDICARE ==
[2022-04-14 10:21] LABS: CALCIUM 9.2 mg/dL (8.5-10.3); CREATININE 1.1 mg/dL (0.4-1.0); POTASSIUM 4.1 mmol/L (3.5-5.0)
[2022-04-14 10:22] LABS: CREATININE,URINE 48.9 mg/dL; MICROALBUM/CREATININE RATIO,UR 12.3 ug/mg (<30.0); MICROALBUMIN,URINE 0.6 mg/dL (0-300.0)
[2022-04-14 20:11] LABS: ESTIMATED AVERAGE GLUCOSE 146 mg/dL (70-100); HEMOGLOBIN A1c% 6.7 % (4.27-6.07)
== END 2022-04-14 09:51 | disposition home or self-care (01) ==
LOC: LAB 09:50
PROVIDERS: ATTEND Family Medicine
DX: C34.31 Malignant neoplasm of lower lobe, right bronchus or lung (principal); E11.9 Type 2 diabetes mellitus without complications; E03.9 Hypothyroidism, unspecified; I10 Essential (primary) hypertension
CPT/HCPCS: 36415; 80048; 82043; 82570; 83036

== ENCOUNTER 2022-05-03 11:13 | Outpatient (CLI) | payer MEDICARE ==
--- NOTE | 2022-05-03 17:29 | Ultrasound Report ---
PROCEDURE: Retroperitoneal INDICATIONS: LEFT RENAL CYST TECHNIQUE: Real-time scanning was performed of the retroperitoneal organs, with image documentation. COMPARISON: 07/26/2019. FINDINGS: Kidneys: Kidneys are normal in size. Right kidney measures 11.7 cm long; left kidney measures 11.3 cm long. Right renal cortical thickness is 1.4 cm; left renal cortical thickness is 1.3 cm. Mild lef t-sided hydronephrosis is noted massively changed compared to prior examination. No obstructing lesio n is identified by ultrasound. No solid masses or nephrolithiasis. Multiple bilateral renal cysts. Re nal cysts have increased in size compared to prior ultrasound Pancreas: Visualized portions of the pancreas are sonographically normal. Aorta: Visualized aorta is normal in caliber at 3 cm or less. Iliac arteries: Proximal common iliac arteries are normal in caliber at 2.5 cm or less. IVC: Intrahepatic inferior vena cava is patent. Bladder: Pre-void bladder volume is 146 mL. Post-void residual is 36 mL. Pre-void images demonstra te no intraluminal masses or stones. On pre-void images, [right and left ureteral jets are noted wit h color Doppler interrogation. (Of note, ureteral jets may not be detectable in up to 25% of cases d ue to insufficient differences in specific gravity between ureteral and bladder urine). Miscellaneous: No free abdominal fluid. IMPRESSION: Bilateral renal cysts which have increased in size compared to 07/26/2019. Mild left-sided hydronephrosis with continued preservation of left ureteral jet. If there is clinical concern for left genitourinary collecting system pathology consider CT KUB or CT IVP for additional evaluation.. Reviewed by: Kourtney Mims MD, PhD on 05/03/2022 5:28 PM PDT Approved by: Kourtney Mims MD, PhD on 05/03/2022 5:28 PM PDT Station ID: [id number]
== END 2022-05-03 11:14 | disposition home or self-care (01) ==
LOC: DI 11:13
PROVIDERS: ATTEND Family Medicine
DX: N28.1 Cyst of kidney, acquired (principal); N13.30 Unspecified hydronephrosis

== ENCOUNTER 2022-07-19 07:44 | Outpatient (CLI) | payer MEDICARE ==
[2022-07-19 08:14] LABS: CALCIUM 8.9 mg/dL (8.5-10.3); CREATININE 1.1 mg/dL (0.4-1.0); POTASSIUM 4.1 mmol/L (3.5-5.0)
[2022-07-19 12:26] LABS: ESTIMATED AVERAGE GLUCOSE 146 mg/dL (70-100); HEMOGLOBIN A1c% 6.7 % (4.27-6.07)
== END 2022-07-19 07:45 | disposition home or self-care (01) ==
LOC: LAB 07:44
PROVIDERS: ATTEND Nurse Practitioner
DX: E11.9 Type 2 diabetes mellitus without complications (principal)
CPT/HCPCS: 36415; 80048; 83036

== ENCOUNTER 2022-10-22 10:39 | Outpatient (CLI) | payer MEDICARE ==
--- NOTE | 2022-10-22 15:12 | CT Report ---
PROCEDURE: CHEST WO INDICATIONS: LUNG CA TECHNIQUE: Noncontrast 1mm axial images were acquired from the pulmonary apices to the posterior costophrenic an gles. Axial 5 mm soft tissue kernel reconstructions were performed as well as 8 mm axial MIP and cor onal and sagittal 5 mm reformations. For radiation dose reduction, the following was used: automate d exposure control, adjustment of mA and/or kV according to patient size. COMPARISON: 03/24/2022, 09/17/2021, 04/05/2018 FINDINGS: Image quality: Excellent. Lungs and pleura: No acute air space opacities. There is again seen a left lower lobe subpleural ble b inferolaterally. Mild emphysematous changes can be seen at the lung apices. No pleural effusions or pneumothorax. Central and peripheral airways are patent and normal in caliber. Mediastinum: Heart size is normal. No pericardial effusion. Mild to moderate coronary artery calcif ication. No mediastinal adenopathy by size criteria. Thoracic aorta and central pulmonary arteries are normal in size. Esophagus is normal in caliber. No hiatal hernia. Bones and chest wall: No suspicious bony lesions. No vertebral body compression fractures. Age-appr opriate degenerative changes are seen. No axillary or supraclavicular adenopathy by size criteria. The thyroid is normal in size and there are no incidental findings. Abdomen: The left kidney is abnormal, with a hyperdense cyst again seen inferiorly, measuring 5.7 cm and 73 Hounsfield units. The appearance is not significantly changed compared to the prior. Simple ap pearing bilateral renal cysts are seen elsewhere. Within the right kidney, there is a nonobstructing stone measuring 3 mm, as on series 3 image 64. The visualized portions of the upper abdominal structu res are otherwise within normal limits. IMPRESSION: No suspicious pulmonary nodules are seen. Additional findings: Mild emphysematous changes Left lower lobe subpleural bleb Mild to moderate coronary artery calcification Bilateral simple appearing renal cysts Stable presumed hyperdense cyst at the inferior pole of the left kidney No obstructing right-sided kidney stone Reviewed by: Memo Mendoza MD on 10/22/2022 2:10 PM AKST Approved by: Memo Mendoza MD on 10/22/2022 2:10 PM AK Station ID: [id number]
== END 2022-10-22 10:40 | disposition home or self-care (01) ==
LOC: DI 10:39
PROVIDERS: ATTEND Physician Assistant Surgical
DX: C34.31 Malignant neoplasm of lower lobe, right bronchus or lung (principal); J43.9 Emphysema, unspecified; I25.10 Atherosclerotic heart disease of native coronary artery without angina pectoris; N28.1 Cyst of kidney, acquired; N20.0 Calculus of kidney

== ENCOUNTER 2022-10-24 10:01 | Outpatient (CLI) | payer MEDICARE ==
[2022-10-24 10:36] LABS: BASOPHILS # (AUTO) 0.1 10^3/uL (0.0-0.1); BASOPHILS % (AUTO) 0.5 %; EOSINOPHILS # (AUTO) 0.2 10^3/uL (0.0-0.7); EOSINOPHILS % (AUTO) 2.1 %; HCT - HEMATOCRIT 41.6 % (37.0-47.0); HGB - HEMOGLOBIN 13.2 g/dL (12.0-16.0); LYMPHOCYTES # (AUTO) 1.9 10^3/uL (1.5-3.5); LYMPHOCYTES % (AUTO) 20.8 %; MEAN CORPUSCULAR HEMOGLOBIN 28.1 pg (27.0-31.0); MEAN CORPUSCULAR HGB CONC 31.7 g/dL (32.0-36.0); MEAN CORPUSCULAR VOLUME 88.7 fL (81.0-99.0); MEAN PLATELET VOLUME 11.4 fL (7.9-10.8); MONOCYTES # (AUTO) 0.7 10^3/uL (0.0-1.0); MONOCYTES % (AUTO) 7.9 %; NEUTROPHILS # (AUTO) 6.3 10^3/uL (1.5-6.6); NEUTROPHILS % (AUTO) 68.2 %; PLT - PLATELET COUNT 193 10^3/uL (130-450); RED BLOOD COUNT 4.69 10^6/uL (4.20-5.40); RED CELL DISTRIBUTION WIDTH 14.6 % (12.0-15.0); WHITE BLOOD COUNT 9.2 x10^3/uL (4.8-10.8)
[2022-10-24 10:55] LABS: ALBUMIN 3.8 g/dL (3.2-5.5); ALKALINE PHOSPHATASE 62 IU/L (42-121); ALT ALANINE AMINOTRANSFERASE 21 IU/L (10-60); AST ASPARTATE AMINOTRANSFERASE 18 IU/L (10-42); BILIRUBIN,TOTAL 0.7 mg/dL (0.2-1.0); BUN - BLOOD UREA NITROGEN 25 mg/dL (6-20); CALCIUM 9.4 mg/dL (8.5-10.3); CARBON DIOXIDE - CO2 27 mmol/L (21-32); CHLORIDE 104 mmol/L (101-111); CHOL/HDL RATIO 2.7 (<4.4); CHOLESTEROL 107 mg/dL; CREATININE 1.1 mg/dL (0.4-1.0); GFR - MDRD 48 (>89); GLUCOSE 145 mg/dL (70-100); HDL CHOLESTEROL 39 mg/dL; LDL CHOLESTEROL,CALCULATED 53 mg/dL; LDL/HDL RATIO 1.4 (<4.4); SODIUM 140 mmol/L (135-145); TOTAL PROTEIN 7.6 g/dL (6.7-8.2); TRIGLYCERIDES 73 mg/dL; VLDL CHOLESTEROL 15 mg/dL
[2022-10-24 11:06] LABS: THYROID STIMULATING HORMONE 2.34 uIU/mL (0.34-5.60)
[2022-10-24 11:09] LABS: ESTIMATED AVERAGE GLUCOSE 148 mg/dL (70-100); HEMOGLOBIN A1c% 6.8 % (4.27-6.07)
== END 2022-10-24 10:02 | disposition home or self-care (01) ==
LOC: LAB 10:01
PROVIDERS: ATTEND Family Medicine
DX: I10 Essential (primary) hypertension (principal); N28.1 Cyst of kidney, acquired; C34.31 Malignant neoplasm of lower lobe, right bronchus or lung; E11.9 Type 2 diabetes mellitus without complications; M85.80 Other specified disorders of bone density and structure, unspecified site; M19.90 Unspecified osteoarthritis, unspecified site; E78.5 Hyperlipidemia, unspecified; E03.9 Hypothyroidism, unspecified
CPT/HCPCS: 36415; 80053; 80061; 83036; 83721; 84443; 85025

== ENCOUNTER 2023-01-19 09:24 | Outpatient (CLI) | payer MEDICARE ==
[2023-01-19 09:47] LABS: CALCIUM 9.1 mg/dL (8.5-10.3); CREATININE 1.3 mg/dL (0.4-1.0)
[2023-01-19 09:55] LABS: CREATININE,URINE 147.9 mg/dL; MICROALBUM/CREATININE RATIO,UR 17.6 ug/mg (<30.0); MICROALBUMIN,URINE 2.6 mg/dL (0-300.0)
[2023-01-19 10:15] LABS: ESTIMATED AVERAGE GLUCOSE 151 mg/dL (70-100); HEMOGLOBIN A1c% 6.9 % (4.27-6.07)
== END 2023-01-19 09:25 | disposition home or self-care (01) ==
LOC: LAB 09:24
PROVIDERS: ATTEND Family Medicine
DX: E11.9 Type 2 diabetes mellitus without complications (principal)
CPT/HCPCS: 36415; 80048; 82043; 82570; 83036

== ENCOUNTER 2023-04-20 09:19 | Outpatient (CLI) | payer MEDICARE | END 2023-04-20 09:20 | disposition home or self-care (01) | LOC: LAB 09:19 | PROVIDERS: ATTEND Family Medicine | DX: Z53.9 Procedure and treatment not carried out, unspecified reason (principal) ==

== ENCOUNTER 2023-04-20 09:24 | Outpatient (CLI) | payer MEDICARE ==
[2023-04-20 09:56] LABS: CALCIUM 8.8 mg/dL (8.5-10.3); CREATININE 1.2 mg/dL (0.4-1.0); POTASSIUM 4.1 mmol/L (3.5-5.0)
[2023-04-20 13:20] LABS: ESTIMATED AVERAGE GLUCOSE 151 mg/dL (70-100); HEMOGLOBIN A1c% 6.9 % (4.27-6.07)
== END 2023-04-20 09:25 | disposition home or self-care (01) ==
LOC: LAB 09:24
PROVIDERS: ATTEND Family Medicine
DX: E11.9 Type 2 diabetes mellitus without complications (principal); N28.1 Cyst of kidney, acquired; J45.991 Cough variant asthma; C34.31 Malignant neoplasm of lower lobe, right bronchus or lung
CPT/HCPCS: 36415; 80048; 83036

== ENCOUNTER 2023-07-03 11:12 | Outpatient (CLI) | payer MEDICARE | END 2023-07-03 23:59 | disposition short-term general hospital (02) | LOC: EMS 11:12 | DX: M25.511 Pain in right shoulder (principal); R11.0 Nausea; W01.0XXA Fall on same level from slipping, tripping and stumbling without subsequent striking against object, initial encounter; Y93.01 Activity, walking, marching and hiking; Y92.008 Other place in unspecified non-institutional (private) residence as the place of occurrence of the external cause | CPT/HCPCS: A0425; A0427 ==

== ENCOUNTER 2023-10-23 15:10 | Outpatient (CLI) | payer MEDICARE ==
[2023-10-23 15:23] LABS: BASOPHILS # (AUTO) 0.1 10^3/uL (0.0-0.1); BASOPHILS % (AUTO) 0.8 %; EOSINOPHILS # (AUTO) 0.3 10^3/uL (0.0-0.7); EOSINOPHILS % (AUTO) 3.7 %; HCT - HEMATOCRIT 41.2 % (37.0-47.0); LYMPHOCYTES # (AUTO) 2.2 10^3/uL (1.5-3.5); LYMPHOCYTES % (AUTO) 28.7 %; MEAN CORPUSCULAR HGB CONC 31.6 g/dL (32.0-36.0); MEAN PLATELET VOLUME 11.9 fL (7.9-10.8); MONOCYTES # (AUTO) 0.8 10^3/uL (0.0-1.0); MONOCYTES % (AUTO) 10.8 %; NEUTROPHILS # (AUTO) 4.3 10^3/uL (1.5-6.6); NEUTROPHILS % (AUTO) 55.9 %; PLT - PLATELET COUNT 171 10^3/uL (130-450); RED BLOOD COUNT 4.48 10^6/uL (4.20-5.40); RED CELL DISTRIBUTION WIDTH 15.2 % (12.0-15.0); WHITE BLOOD COUNT 7.6 x10^3/uL (4.8-10.8)
[2023-10-23 15:38] LABS: ALBUMIN 4.2 g/dL (3.2-5.5); ALBUMIN/GLOBULIN RATIO 1.7 (1.0-2.2); ALKALINE PHOSPHATASE 57 IU/L (42-121); ALT ALANINE AMINOTRANSFERASE 17 IU/L (10-60); AST ASPARTATE AMINOTRANSFERASE 14 IU/L (10-42); BILIRUBIN,TOTAL 0.5 mg/dL (0.2-1.0); BUN - BLOOD UREA NITROGEN 19 mg/dL (6-20); CALCIUM 9.8 mg/dL (8.5-10.3); CARBON DIOXIDE - CO2 31 mmol/L (21-32); CHLORIDE 104 mmol/L (101-111); CHOL/HDL RATIO 3.7 (<4.4); CHOLESTEROL 130 mg/dL; CREATININE 1.3 mg/dL (0.6-1.3); GFR - MDRD 40 (>89); GLUCOSE 138 mg/dL (74-104); HDL CHOLESTEROL 35 mg/dL; LDL CHOLESTEROL,CALCULATED 42 mg/dL; LDL/HDL RATIO 1.2 (<4.4); POTASSIUM 3.9 mmol/L (3.5-4.5); SODIUM 140 mmol/L (135-145); TOTAL PROTEIN 6.7 g/dL (6.4-8.9); TRIGLYCERIDES 264 mg/dL (48-352); VLDL CHOLESTEROL 53 mg/dL
[2023-10-23 17:37] LABS: THYROID STIMULATING HORMONE 2.29 uIU/mL (0.34-5.60)
== END 2023-10-23 15:11 | disposition home or self-care (01) ==
LOC: LAB 15:10
PROVIDERS: ATTEND Family Medicine
DX: I12.9 Hypertensive chronic kidney disease with stage 1 through stage 4 chronic kidney disease, or unspecified chronic kidney disease (principal); E11.22 Type 2 diabetes mellitus with diabetic chronic kidney disease; N18.31 Chronic kidney disease, stage 3a; J45.991 Cough variant asthma
CPT/HCPCS: 36415; 80053; 80061; 83721; 84443; 85025

== ENCOUNTER 2023-11-28 14:32 | Outpatient (CLI) | payer MEDICARE ==
--- NOTE | 2023-11-28 19:22 | CT Report ---
PROCEDURE: Chest WO INDICATIONS: LUNG CA TECHNIQUE: A CT scan of the chest was performed. Intravenous contrast media was not administered. Images were re corded and evaluated at appropriate window settings. Reformats: axial MIP of the chest, coronal and s agittal. For radiation dose reduction, the following was used: automated exposure control, adjustment of mA and/or kV according to patient size. COMPARISON: 10/22/2022 FINDINGS: Image quality: Excellent. Lungs and pleura: Mild bilateral upper lobe emphysematous changes. Tiny groundglass nodules at the lilibeth ng apices are again noted, series 4 image 14, stable. A tiny subpleural medial right lower lobe lung nodule on is also stable. No new lung nodules, masses, groundglass opacities, or consolidations. No pleural effusions. No pneumothorax. Central and peripheral airways are normal caliber without br onchial wall thickening or bronchiectasis. Left lateral lower lung bleb. Surgical changes of right l ower lobe resection. Mediastinum: Heart size is enlarged. There is mild two-vessel coronary artery calcification. No peric ardial effusion. Mild descending aortic aneurysm at 4.4 cm, and pulmonary artery enlargement, both re latively stable. Borderline mediastinal nodes are unchanged. Most prominent in the AP window. Chest wall and lower neck: The thyroid gland is slightly prominent along the left inferior margin and is only partially seen on the current study, stable. No axillary or supraclavicular adenopathy by si ze. Bones: Healed right humeral neck fracture. No new osseous lesions. Upper Abdomen: Hyperdense round lesion arises from the upper pole of the left kidney and a few cystic lesions are partially seen in the right kidney. No significant change compared to prior. IMPRESSION: 1. Stable bilateral biapical groundglass nodules. 2. Stable borderline mediastinal lymph nodes, probably reactive. 3. No evidence of recurrent disease. Reviewed by: Audrey Lauren MD on 11/28/2023 7:21 PM PST Approved by: Audrey Lauren MD on 11/28/2023 7:21 PM PST Station ID: [id number]
== END 2023-11-28 14:33 | disposition home or self-care (01) ==
LOC: DI 14:32
PROVIDERS: ATTEND Family Medicine
DX: C34.31 Malignant neoplasm of lower lobe, right bronchus or lung (principal)

== ENCOUNTER 2024-04-15 13:01 | Inpatient (IN) | payer MEDICARE ==
[2024-04-15 13:38] LABS: BASOPHILS % (AUTO) 0.5 %; HCT - HEMATOCRIT 38.4 % (37.0-47.0); HGB - HEMOGLOBIN 12.1 g/dL (12.0-16.0); MEAN CORPUSCULAR HEMOGLOBIN 27.8 pg (27.0-31.0); MEAN CORPUSCULAR HGB CONC 31.5 g/dL (32.0-36.0); MEAN CORPUSCULAR VOLUME 88.1 fL (81.0-99.0); MEAN PLATELET VOLUME 11.9 fL (7.9-10.8); MONOCYTES % (AUTO) 3.8 %; NEUTROPHILS % (AUTO) 89.4 %; PLT - PLATELET COUNT 96 10^3/uL (130-450); RED BLOOD COUNT 4.36 10^6/uL (4.20-5.40); WHITE BLOOD COUNT 20.3 x10^3/uL (4.8-10.8)
[2024-04-15 13:40] LABS: ABNORMAL LYMPHS % (MANUAL) 0 %
[2024-04-15 13:49] LABS: ALBUMIN 3.6 g/dL (3.2-5.5); ALBUMIN/GLOBULIN RATIO 1.4 (1.0-2.2); BILIRUBIN,TOTAL 1.1 mg/dL (0.2-1.0); CALCIUM 9.4 mg/dL (8.5-10.3); CREATININE 3.4 mg/dL (0.6-1.3); POTASSIUM 3.5 mmol/L (3.5-4.5); TOTAL PROTEIN 6.1 g/dL (6.4-8.9)
--- NOTE | 2024-04-15 13:54 | ED Physician Documentation ---
PD HPI FOCAL NEURO - Stated complaint Stated Complaint: SLURRED SPEACH/UNABLE TO WALK - Chief complaint Chief Complaint: Neuro - History obtained from History obtained from: Patient - History of Present Illness Timing - onset: How many days ago (2-3 days of left lower abd pain with nausea and less appetite. Mild diarrhea last night. [place] weaker this morning with confusion and nonfocal weakness. [place] improved after eating an orange and having some juice. States less PO intake for 2 days.) Timing - duration: Days (2) Timing - details: Gradual onset, Still present Severity of deficit: Moderate Weakness: Other (generalized) Associated symptoms: Nausea / vomiting. No: Headache, Syncope Baseline status: positive: A&OX3, ambulatory, indep Similar symptoms before: Has not had sx before Review of Systems Constitutional: reports: Chills, Fatigue. 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 - Present Medications Home Medications: Ambulatory Orders Medication Instructions Recorded Confirmed Glimepiride [Amaryl] 1 mg PO DAILY 01/12/14 01/12/14 Ibuprofen [Motrin] 600 mg PO TID PRN #30 tab 01/12/14 Levothyroxine Sodium [Tirosint] 88 mcg PO DAILY 01/12/14 01/12/14 Losartan Potassium [Cozaar] 50 mg PO BID 01/12/14 01/12/14 Meloxicam 15 mg PO DAILY 01/12/14 01/12/14 Metformin HCl 500 mg PO BID 01/12/14 01/12/14 Metoprolol Tartrate 50 mg PO BID 01/12/14 01/12/14 Nifedipine [Nifedical Xl] 60 mg PO DAILY 01/12/14 01/12/14 Pravastatin Sodium [Pravachol] 40 mg PO HS 01/12/14 01/12/14 Tramadol HCl 50 mg PO Q6H PRN #25 tablet 01/12/14 hydroCHLOROthiazide [Hydrodiuril] 25 mg PO DAILY 01/12/14 01/12/14 - Allergies Allergies/Adverse Reactions: Allergies Allergy/AdvReac Type Severity Reaction Status Date / Time bupropion HCl * Allergy Unknown Verified 04/15/24 13:19 [From Wellbutrin] - Social History Does the pt smoke?: No Smoking Status: Never smoker Does the pt drink ETOH?: Yes Does the pt have substance abuse?: No - POLST Patient has POLST: No PD ED PE NORMAL - Vitals Vital signs reviewed: Yes - General General: Alert and oriented X 3, No acute distress, Well developed/nourished - HEENT HEENT: Pharynx benign. No: Moist mucous membranes - Neck Neck: Supple, no meningeal sign, No adenopathy - Cardiac Cardiac: RRR, No murmur - Respiratory Respiratory: No respiratory distress, Clear bilaterally - Abdomen Abdomen: Normal bowel sounds, Soft, Non distended, No organomegaly, Other (tender left mid to low abdomen with local guarding but no percussion nor referred tenderness. ) - Female Female : Deferred - Rectal Rectal: Deferred - Back Back: No CVA TTP - Derm Derm: Normal color, Warm and dry - Extremities Extremities: Normal ROM s pain - Neuro Neuro: Alert and oriented X 3, No motor deficit, No sensory deficit Results - Vitals Vitals: Vital Signs - 24 hr 04/15/24 04/15/24 04/15/24 13:11 14:46 16:00 Temperature 36.7 C Heart Rate 98 86 81 Respiratory 16 16 18 Rate Blood Pressure 91/60 122/62 100/59 L O2 Saturation 97 96 95 Oxygen O2 Source Room air - Labs Labs: Laboratory Tests 04/15/24 04/15/24 04/15/24 13:15 13:31 13:31 WBC 20.3 H RBC 4.36 Hgb 12.1 Hct 38.4 MCV 88.1 MCH 27.8 MCHC 31.5 L RDW 16.0 H Plt Count 96 L MPV 11.9 H Neut # (Auto) Not Reportable Lymph # (Auto) Not Reportable [place] # (Auto) Not Reportable Eos # (Auto) Not Reportable Baso # (Auto) Not Reportable Absolute Nucleated RBC Not Reportable Total Counted 100 Band Neuts % (Manual) 54 H Reactive Lymphs % (Man) 1 Abnorm Lymph % (Manual) 0 Metamyelocytes % 3 H Nucleated RBC % Not Reportable Neutrophils # (Manual) 18.1 H Lymphocytes # (Manual) 1.2 L Monocytes # (Manual) 0.4 Eosinophils # (Manual) 0.0 Basophils # (Manual) 0.0 Differential Comment MANUAL DIFFERENTIAL WBC Morphology 1+ DOHLE BODIES Sodium 133 L Potassium 3.5 Chloride 95 L Carbon Dioxide 29 Anion Gap 9.0 BUN 46 H Creatinine 3.4 H Estimated GFR (MDRD) 13 L Glucose 130 H POC Whole Bld Glucose 131 H Lactic Acid Calcium 9.4 Magnesium Total Bilirubin 1.1 H AST 31 ALT 33 Alkaline Phosphatase 60 Total Protein 6.1 L Albumin 3.6 Globulin 2.5 Albumin/Globulin Ratio 1.4 Lipase 11 Urine Color Urine Clarity Urine pH Ur Specific [place] Urine Protein Urine Glucose (UA) Urine Ketones Urine Occult Blood Urine Nitrite Urine Bilirubin Urine Urobilinogen Ur Leukocyte Esterase Urine RBC Urine WBC Ur Squamous Epith Cells Amorphous Sediment Urine Bacteria Ur Microscopic Review Urine Culture Comments Nasal Adenovirus (PCR) Nasal B. parapertussis DNA (PCR) Nasal Coronavir 229E PCR Nasal Coronavir HKU1 PCR Nasal Coronavir NL63 PCR Nasal Coronavir OC43 PCR Nasal Enterovir/Rhinovir PCR Nasal Influenza B PCR Nasal Influenza A PCR Nasal Parainfluen 1 PCR Nasal Parainfluen 2 PCR Nasal Parainfluen 3 PCR Nasal Parainfluen 4 PCR Nasal RSV (PCR) Nasal B.pertussis DNA PCR Nasal C.pneumoniae (PCR) Jonn Human Metapneumo PCR Nasal M.pneumoniae (PCR) Nasal SARS-CoV-2 (PCR) 04/15/24 04/15/24 04/15/24 13:31 15:09 16:15 WBC RBC Hgb Hct MCV MCH MCHC RDW Plt Count MPV Neut # (Auto) Lymph # (Auto) [place] # (Auto) Eos # (Auto) Baso # (Auto) Absolute Nucleated RBC Total Counted Band Neuts % (Manual) Reactive Lymphs % (Man) Abnorm Lymph % (Manual) Metamyelocytes % Nucleated RBC % Neutrophils # (Manual) Lymphocytes # (Manual) Monocytes # (Manual) Eosinophils # (Manual) Basophils # (Manual) Differential Comment WBC Morphology Sodium Potassium Chloride Carbon Dioxide Anion Gap BUN Creatinine Estimated GFR (MDRD) Glucose POC Whole Bld Glucose Lactic Acid 2.9 H Calcium Magnesium 1.3 L Total Bilirubin AST ALT Alkaline Phosphatase Total Protein Albumin Globulin Albumin/Globulin Ratio Lipase Urine Color YELLOW Urine Clarity CLOUDY Urine pH 5.5 Ur Specific [place] >=1.030 H Urine Protein >=300 H Urine Glucose (UA) NEGATIVE Urine Ketones TRACE Urine Occult Blood MODERATE H Urine Nitrite NEGATIVE Urine Bilirubin SMALL H Urine Urobilinogen 0.2 (NORMAL) Ur Leukocyte Esterase NEGATIVE Urine RBC 6-10 H Urine WBC 0-3 Ur Squamous Epith Cells RARE Squamous Amorphous Sediment Moderate Urine Bacteria Rare Ur Microscopic Review INDICATED Urine Culture Comments NOT INDICATED Nasal Adenovirus (PCR) Nasal B. parapertussis DNA (PCR) Nasal Coronavir 229E PCR Nasal Coronavir HKU1 PCR Nasal Coronavir NL63 PCR Nasal Coronavir OC43 PCR Nasal Enterovir/Rhinovir PCR Nasal Influenza B PCR Nasal Influenza A PCR Nasal Parainfluen 1 PCR Nasal Parainfluen 2 PCR Nasal Parainfluen 3 PCR Nasal Parainfluen 4 PCR Nasal RSV (PCR) Nasal B.pertussis DNA PCR Nasal C.pneumoniae (PCR) Jonn Human Metapneumo PCR Nasal M.pneumoniae (PCR) Nasal SARS-CoV-2 (PCR) 04/15/24 04/15/24 16:34 16:35 WBC RBC Hgb Hct MCV MCH MCHC RDW Plt Count MPV Neut # (Auto) Lymph # (Auto) [place] # (Auto) Eos # (Auto) Baso # (Auto) Absolute Nucleated RBC Total Counted Band Neuts % (Manual) Reactive Lymphs % (Man) Abnorm Lymph % (Manual) Metamyelocytes % Nucleated RBC % Neutrophils # (Manual) Lymphocytes # (Manual) Monocytes # (Manual) Eosinophils # (Manual) Basophils # (Manual) Differential Comment WBC Morphology Sodium Potassium Chloride Carbon Dioxide Anion Gap BUN Creatinine Estimated GFR (MDRD) Glucose POC Whole Bld Glucose 102 H Lactic Acid Calcium Magnesium Total Bilirubin AST ALT Alkaline Phosphatase Total Protein Albumin Globulin Albumin/Globulin Ratio Lipase Urine Color Urine Clarity Urine pH Ur Specific [place] Urine Protein Urine Glucose (UA) Urine Ketones Urine Occult Blood Urine Nitrite Urine Bilirubin Urine Urobilinogen Ur Leukocyte Esterase Urine RBC Urine WBC Ur Squamous Epith Cells Amorphous Sediment Urine Bacteria Ur Microscopic Review Urine Culture Comments Nasal Adenovirus (PCR) NOT DETECTED Nasal B. parapertussis DNA (PCR) NOT DETECTED Nasal Coronavir 229E PCR NOT DETECTED Nasal Coronavir HKU1 PCR NOT DETECTED Nasal Coronavir NL63 PCR NOT DETECTED Nasal Coronavir OC43 PCR NOT DETECTED Nasal Enterovir/Rhinovir PCR NOT DETECTED Nasal Influenza B PCR NOT DETECTED Nasal Influenza A PCR NOT DETECTED Nasal Parainfluen 1 PCR NOT DETECTED Nasal Parainfluen 2 PCR NOT DETECTED Nasal Parainfluen 3 PCR NOT DETECTED Nasal Parainfluen 4 PCR NOT DETECTED Nasal RSV (PCR) NOT DETECTED Nasal B.pertussis DNA PCR NOT DETECTED Nasal C.pneumoniae (PCR) NOT DETECTED Jonn Human Metapneumo PCR NOT DETECTED Nasal M.pneumoniae (PCR) NOT DETECTED Nasal SARS-CoV-2 (PCR) NOT DETECTED - Rads (name of study) abd/pelvic CT Relevant Findings:: Prelim report reviewed (uncomplicated diverticulitis.), EMP independent interpretation of test PD Medical Decision Making - ED course Complexity details: reviewed results (very elevated white count with high bancdemia. Lactate 2.9. Sugests sepsis. BP initially good but has dropped to mild hypotensive. Given IV fluids. UA negative. CXR clear of infiltrates but some edema. CT showing diverticulitis. Viral panel neg. ), considered differential (pt seems ill with altered MS this morning likley hypoglycemia as poor PO intake for 2 days with nausea, vomiting, somee loose stools. Left abd pain. COnsider pyelo, diverticulitis, uterine. Location would not suggest [place], [place]. ), d/w patient, d/w design studio consultant (Hospitlaist Dr. Valdez, who will take over care of the patient in the hospital. ) ED course: left abd pain and poor intake with nause and vomiting for 2 days. Altered MS this am corrected with orange and juice, presume low blood sugar. Has markings of sepsis with blood WBC, bandemia, elevated lactate. Source appears diverticulitis, and has left abd pain and tenderness but not general peritoneal tenderness. Departure - Departure Disposition: 66 [facility] DC/Xfer Clinical Impression: Acute diverticulitis, Leukocytosis, Sepsis, Diabetes, MARY ANNE (acute kidney injury), Dehydration, Nausea and vomiting Condition: Stable Record reviewed to determine appropriate education?: Yes Discharge Date/Time: 04/15/24 17:35
[2024-04-15 14:02] LABS: BAND NEUTROPHILS % (MANUAL) 54 %; LYMPHOCYTES # (MANUAL) 1.2 10^3/uL (1.5-3.5); LYMPHOCYTES % (MANUAL) 5 %; METAMYELOCYTES % (MANUAL) 3 %; MONOCYTES # (MANUAL) 0.4 10^3/uL (0.0-1.0); NEUTROPHILS # (MANUAL) 18.1 10^3/uL (1.5-6.6); REACTIVE LYMPHS % (MANUAL) 1 %
[2024-04-15 14:04] LABS: DIFFERENTIAL COMMENT MANUAL DIFFERENTIAL
[2024-04-15] MEDS: ONDANSETRON 4 MG/2 ML VIAL IVP STA (15:20)
[2024-04-15] MEDS: KETOROLAC 15 MG/ML VIAL IVP STA (15:21)
[2024-04-15] MEDS: SODIUM CHLORIDE 0.9% 1,000 ML IV STA (15:21)
--- NOTE | 2024-04-15 16:17 | CT Report ---
PROCEDURE: Head WO INDICATIONS: confused and weakness this morning TECHNIQUE: Noncontrast 4.5 mm thick angled axial sections acquired from the foramen magnum to the vertex. For r adiation dose reduction, the following was used: automated exposure control, adjustment of mA and/or kV according to patient size. COMPARISON: None. FINDINGS: Image quality: Diagnostic. CSF spaces: Basal cisterns are patent. No extra-axial fluid collections. Ventricles are normal in size and shape. Brain: No midline shift. No intracranial masses or hemorrhage. Arvizu-white matter interface is norm al. Posterior fossa hypodensity may represent arachnoid cyst versus a negative cisterna magna. Skull and face: Calvarium and visualized facial bones are intact, without suspicious lesions. Bilat eral lens replacement. Sinuses: Bilateral maxillary sinus mucus retention cysts. Remainder of sinuses and mastoids are clear . IMPRESSION: No acute intracranial pathology. Reviewed by: Liv Lowery MD, PhD on 04/15/2024 3:15 PM AKDT Approved by: Liv Lowery MD, PhD on 04/15/2024 3:15 PM AKDT Station ID: [id number]
[2024-04-15 16:28] LABS: BILIRUBIN,URINE SMALL (NEGATIVE); GLUCOSE, URINE (UA) NEGATIVE (NEGATIVE); KETONES,URINE (UA) TRACE mg/dL (NEGATIVE); LEUKOCYTE ESTERASE, URINE NEGATIVE (NEGATIVE); NITRITE,URINE NEGATIVE (NEGATIVE); OCCULT BLOOD,URINE MODERATE (NEGATIVE); PH,URINE 5.5 PH (5.0-7.5); PROTEIN,URINE >=300 mg/dL (NEGATIVE); UROBILINOGEN,URINE 0.2 (NORMAL) E.U./dL (NORMAL)
[2024-04-15 16:29] LABS: CLARITY,URINE CLOUDY (CLEAR)
--- NOTE | 2024-04-15 16:32 | CT Report ---
PROCEDURE: Abdomen/Pelvis WO INDICATIONS: left abd pain 2 days TECHNIQUE: A CT scan of the abdomen and pelvis was performed without the use of intravenous contrast. Images we re recorded and evaluated at appropriate window settings. Reformats: coronal and sagittal. For radiat ion dose reduction, the following was used: automated exposure control, adjustment of mA and/or kV ac cording to patient size. COMPARISON: Retroperitoneal ultrasound 05/03/2022. FINDINGS: Image quality: Diagnostic. Lower chest: Trace left pleural effusion with subjacent atelectasis. Thin-walled left lower lobe cyst . Liver: No contour-deforming mass. Gallbladder and biliary tree: No radiopaque stones or wall thickening. No biliary dilation. Spleen: No splenomegaly. Pancreas: No pancreatic ductal dilation. Adrenals: No adrenal nodule. Kidneys and ureters: Bilateral simple cysts are visualized including a large left superior pole exoph ytic simple cyst. There is abnormal contour to the superior pole of the left kidney, suspect renal ma ss. No nephrolithiasis. Mild left hydronephrosis. Stomach, bowel and peritoneum: No small bowel obstruction. Diverticulosis with inflammatory changes/f atty stranding adjacent in the mid descending colon consistent with acute diverticulitis (coronal ser ies 4, image 53). No free air or abscess. No pathologic free fluid. Lymph nodes: No central or retroperitoneal adenopathy. Vessels: No infrarenal aortic aneurysm. Biiliac atherosclerotic calcifications. PELVIS Reproductive organs: Unremarkable. Bladder: No wall thickness, accounting for underdistention. Pelvic lymph nodes: No pelvic adenopathy by size criteria. Bones: Degenerative change of the spine without acute osseous abnormality. Well marginated sclerotic focus in the right iliac wing measuring 0.7 cm (2/107), probable benign bone island. Similar 0.5 cm f ocus in the left acetabulum. Other: No significant ventral or inguinal hernia. IMPRESSION: Acute uncomplicated diverticulitis in the mid descending colon. Limited evaluation of the kidneys and the absence of contrast. Suspect large left superior pole mass. Recommend further evaluation with CT or MRI renal protocol. Reviewed by: Liv Lowery MD, PhD on 04/15/2024 3:30 PM AKDT Approved by: Liv Lowery MD, PhD on 04/15/2024 3:30 PM AKDT Station ID: [id number]
[2024-04-15 16:38] LABS: AMORPHOUS SEDIMENT,UR Moderate /LPF; BACTERIA,URINE Rare /HPF (None Seen); SQUAMOUS EPITHELIAL CELL,UR RARE Squamous (<= Few); WBC,URINE 0-3 /HPF (0-5)
[2024-04-15] MEDS ORDERED: MORPHINE 2 MG/ML CARPUJECT IVP PRN (16:49)
[2024-04-15] MEDS: PIPERACILLIN/TAZOBACTAM 3.375 GM in SODIUM CHLORIDE 0.9% MINIBAG 100 ML IV STA (16:51)
--- NOTE | 2024-04-15 17:30 | XRAY Report ---
PROCEDURE: Chest 1V INDICATIONS: fever, ill TECHNIQUE: One view of the chest was acquired. COMPARISON: CT chest 10/22/2022. FINDINGS: Surgical changes and devices: None. Lungs and pleura: No pleural effusions or pneumothorax. Lungs are clear. Mediastinum: Mediastinal contours appear normal. Heart size is normal. Bones and chest wall: No suspicious bony lesions. Overlying soft tissues appear unremarkable. IMPRESSION: No acute cardiopulmonary process. Reviewed by: Liv Lowery MD, PhD on 04/15/2024 4:28 PM [facility] Approved by: Liv Lowery MD, PhD on 04/15/2024 4:28 PM [facility] Station ID: [id number]
--- NOTE | 2024-04-15 17:33 | HISTORY & PHYSICAL EXAMINATION ---
Chief Complaint - Chief Complaint Chief Complaint: Nausea, vomiting and abdominal pain History of Present Illness - Admitted From Admitted From:: Home - History Obtained From History obtained from: Patient and medical record - History of Present Illness HPI Comment/Other: The patient is a very pleasant 78-year-old female. She was brought to the emergency room with altered mental status and abdominal pain. After treatment in the emergency room she is doing much better and answers questions appropriately. She tells me that she lost her in November of this year and she lost her brother yesterday. She said that for the past several months she has been extremely depressed and for the past 2 or 3 days has been not eating or drinking well. Yesterday her brother and she developed severe nausea vomiting and diarrhea. She was having left lower quadrant abdominal pain. She thought it might be due to her grief reaction. She admits that she has not been drinking enough water. Today she became quite weak. She was shaky. She was speaking to a family member in [place] on the phone and they felt that she had slurred speech and was confused. They called her other son to bring her to the emergency room. Workup in the emergency room revealed white blood cell count of 20.3, hemoglobin of 12.1, platelet level of 96. Sodium level was 133, potassium 3.5, creatinine was 3.4 with a baseline of 1.2. BUN was elevated at 46. Glucose was 130. Magnesium level was 1.3. Bilirubin was 1.1, the rest of her liver panel was unremarkable. She had a CT scan of the brain which revealed no evidence of an acute CVA. Noncontrasted CT scan of the abdomen and pelvis revealed uncomplicated diverticulitis in the mid descending colon. She was noted to have mild left hydronephrosis with bilateral simple cysts. There was abnormal contour of the superior pole of the left kidney and a renal mass is suspected but they could not fully evaluate due to lack of IV contrast. In the emergency room she received 1 L fluid bolus. She received a dose of IV Toradol and was referred for admission. The patient was somewhat tearful at times when discussing the of her brother yesterday. She has not spoken to her primary care provider about getting on any sort of depression medication at this point. She has not had any fever or chills. No chest pain or heart palpitations. She has had nausea vomiting and diarrhea. Her last episode of diarrhea was this morning. She has mild abdominal pain in the left lower quadrant. She has no dysuria and is not complaining of any urinary frequency. We discussed her CODE STATUS. She would like to be a full code and would want intubation and chest compressions. She would like her daughter Sobia Cagle and her son Cody Benitez to be her surrogate decision makers. 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 - Family & Social History Living arrangement: At home Living Situation: Alone - POLST Patient has POLST: No POLST Status: Full Code Meds/Allgy - Home Medications Home Medications: Ambulatory Orders Medication Instructions Recorded Confirmed Glimepiride [Amaryl] 1 mg PO DAILY 01/12/14 01/12/14 Ibuprofen [Motrin] 600 mg PO TID PRN #30 tab 01/12/14 Levothyroxine Sodium [Tirosint] 88 mcg PO DAILY 01/12/14 01/12/14 Losartan Potassium [Cozaar] 50 mg PO BID 01/12/14 01/12/14 Meloxicam 15 mg PO DAILY 01/12/14 01/12/14 Metformin HCl 500 mg PO BID 01/12/14 01/12/14 Metoprolol Tartrate 50 mg PO BID 01/12/14 01/12/14 Nifedipine [Nifedical Xl] 60 mg PO DAILY 01/12/14 01/12/14 Pravastatin Sodium [Pravachol] 40 mg PO HS 01/12/14 01/12/14 Tramadol HCl 50 mg PO Q6H PRN #25 tablet 01/12/14 hydroCHLOROthiazide [Hydrodiuril] 25 mg PO DAILY 01/12/14 01/12/14 - Allergies Allergies/Adverse Reactions: Allergies Allergy/AdvReac Type Severity Reaction Status Date / Time bupropion HCl * Allergy Unknown Verified 04/15/24 13:19 [From Wellbutrin] Review of Systems - Constitutional Constitutional: reports: Weakness - Gastrointestinal Gastrointestinal: reports: Abdominal pain, Diarrhea, Nausea, Vomiting - Neurological Neurological: reports: General weakness, Slurred speech, Other (Confusion) - Psychiatric Psychiatric: reports: Depression, Other (Grief reaction) - All Other Systems All Other Systems: reports: Reviewed and negative Exam - Vital Signs Reviewed Vital Signs: Yes Vital Signs: Vital Signs x48h Temp Pulse Resp BP Pulse Ox 04/15/24 17:06 75 22 98/67 98 04/15/24 16:00 81 18 100/59 L 95 04/15/24 14:46 86 16 122/62 96 04/15/24 13:11 36.7 C 98 16 91/60 97 - Physical Exam General Appearance: positive: No acute distress, Alert Eyes Bilateral: positive: Normal inspection ENT: positive: ENT inspection nml, Dry mucous membranes Neck: positive: Nml inspection Respiratory: positive: Chest non-tender, No respiratory distress, Breath sounds nml Cardiovascular: positive: No murmur, No gallop, Tachycardia. negative: Friction rub Peripheral Pulses: positive: 1+ Abdomen: positive: Nml bowel sounds, Tenderness (Tender in the left lower quadrant) Skin: positive: Color nml, No rash, Warm, Dry Sepsis Event Note (H) - Evaluation Current Stage of Sepsis: Severe sepsis Possible source of Sepsis: positive: GI tract/intra-abdominal Confirmed Source and Organism (if known) of Sepsis: Diverticulitis Sepsis Associated Organ Dysfunction: Acute metabolic encephalopathy-1 sofa point Thrombocytopenia (platelets 96)- 2 sofa points Acute renal failure (creatinine 3.4)- 2 sofa points Sofa score of 5 - Sepsis Criteria Sepsis Criteria: Recorded Respiratory Rate greater than 20, WBC count greater than 10% bands, WBC count greater than 12,000 or less than 4000, PROPERTY CLAIM REP: altered consciousness (unrelated to primary neuro pathology), SBP less than 90 mmHg, Metabolic: lactate > 2 mmol/L, Hematologic: platelets < 100,000; INR > 1.5, or a PTT>60 seconds Conclusion/Plan - Problem List (1) Severe sepsis Conclusion/Plan: The patient presented to the emergency room with evidence of severe sepsis. The patient had acute metabolic encephalopathy, acute renal failure with creatinine of 3.4. Her known baseline is 1.2. She has rather significant thrombocytopenia in the setting of acute diverticulitis. The patient will be started on IV Zosyn. She will be given an additional 1 L fluid bolus and then placed on maintenance fluids with normal saline. (2) Diverticulitis Conclusion/Plan: The patient will be started on IV Zosyn. This will be the first day of treatment. (3) Acute metabolic encephalopathy Conclusion/Plan: It was reported that the patient was quite confused and slurring her words prior to coming into the hospital. After receiving fluid resuscitation in the emergency room her mentation has improved. She answers questions appropriately but does get confused a little bit at times. Her encephalopathy is due to sepsis and probably complicated by her acute renal failure (5) Renal mass Conclusion/Plan: This is an incidental finding on CT imaging. She will need outpatient follow-up for this. She likely should see a urologist (6) Renal cyst Conclusion/Plan: She has multiple renal cysts that have been present for a long time. She will need outpatient urology follow-up. (7) Hydronephrosis of left kidney Conclusion/Plan: Plan as above (8) Diabetes Conclusion/Plan: The patient has acute renal failure. Her metformin and glimepiride have been held. She will be on sliding scale coverage here in the hospital. (9) Hypertension Conclusion/Plan: The patient's blood pressures are soft. Will hold her blood pressure medications except for her metoprolol. Her dose will be cut back to 25 mg p.o. twice daily. Her nifedipine and hydrochlorothiazide and losartan have all been held. (10) Hyperlipidemia Conclusion/Plan: Pravastatin has been held. This can be resumed at discharge. (11) Grief reaction Conclusion/Plan: The patient lost her in November of this year and she lost her brother yesterday. She is having a difficult time. She should talk to her outpatient primary care doctor about grief support groups and possibly going on some low- dose depression medicine as she goes through her grief. (12) Hypomagnesemia Conclusion/Plan: The patient's magnesium was quite low. She will receive 2 g of IV magnesium sulfate and we will have a magnesium level checked in the morning (13) Lung cancer Conclusion/Plan: He is the patient has a history of lung cancer. This was status post robotic resection and she never received any chemotherapy or radiation. There is no evidence of recurrence although she does have a suspicious lesion on her kidney that we will need to be looked into as an outpatient (14) Thrombocytopenia Conclusion/Plan: Likely due to sepsis. She will have a CBC drawn (15) Hyponatremia Conclusion/Plan: Likely due to her nausea vomiting and diarrhea. She is being hydrated with normal saline and will check a sodium level in the morning. (16) Obesity (BMI 30-39.9) Conclusion/Plan: The patient has a BMI of 34.1. Weight loss is recommended through dietary modification and exercise as tolerated - Lab Results Lab results reviewed: Yes Fish Bones: 04/15/24 13:31 04/15/24 13:31 - Diagnostic Imaging Results Diagnostic Imaging Results: positive: Final report reviewed - EKG Results EKG Interpreted Independently: Yes
[2024-04-15] MEDS: SODIUM CHLORIDE 0.9% 1,000 ML IV ONE (17:46)
[2024-04-15] MEDS: SODIUM CHLORIDE FLUSH 0.9% 10 ML SYRINGE IVP SCH (17:47)
[2024-04-15] MEDS: PIPERACILLIN/TAZOBACTAM 3.375 GM in SODIUM CHLORIDE 0.9% MINIBAG 100 ML IV SCH (17:47)
[2024-04-15] MEDS: SODIUM CHLORIDE 0.9% 1,000 ML IV SCH (17:47)
[2024-04-15] MEDS: INSULIN LISPRO 300 UNIT/3 ML PEN SUBQ SCH (18:00)
[2024-04-15] MEDS: SACCHAROMYCES BOULARDII 250 MG CAPSULE PO SCH (18:00)
[2024-04-15] MEDS: MAGNESIUM SULFATE 2 GRAM 2 GM/50 ML BAG IV ONE (18:51)
[2024-04-15 19:25] LABS: B. PARAPERTUSSIS- RESP PCR PAN NOT DETECTED; B. PERTUSSIS- RESP PCR PANEL NOT DETECTED; C. PNEUMONIAE- RESP PCR PANEL NOT DETECTED; CORONAVIRUS 229E-RESP PCR NOT DETECTED; CORONAVIRUS HKU1-RESP PCR NOT DETECTED; CORONAVIRUS NL63-RESP PCR NOT DETECTED; CORONAVIRUS OC43-RESP PCR NOT DETECTED; HUMAN METAPNEUMOVIRUS NOT DETECTED; INFLUENZA A- RESP PCR PANEL NOT DETECTED; INFLUENZA B - RESP PCR PANEL NOT DETECTED; M. PNEUMONIAE- RESP PCR PANEL NOT DETECTED; PARAINFLUENZA VIRUS 1 NOT DETECTED; PARAINFLUENZA VIRUS 2 NOT DETECTED; PARAINFLUENZA VIRUS 3 NOT DETECTED; PARAINFLUENZA VIRUS 4 NOT DETECTED; RHINOVIRUS/ENTEROVIRUS NOT DETECTED; RSV- RESP PCR PANEL NOT DETECTED; SARS-CoV-2 -RESP PCR PANEL NOT DETECTED
[2024-04-15] MEDS: METOPROLOL TARTRATE 25 MG TABLET PO SCH (21:22)
[2024-04-15] MEDS: PIPERACILLIN/TAZOBACTAM 2.25 GM in SODIUM CHLORIDE 0.9% MINIBAG 100 ML IV SCH (21:22)
[2024-04-16 05:38] LABS: BASOPHILS % (AUTO) 0.5 %; EOSINOPHILS % (AUTO) 1.3 %; HGB - HEMOGLOBIN 10.5 g/dL (12.0-16.0); LYMPHOCYTES % (AUTO) 4.5 %; MEAN CORPUSCULAR HEMOGLOBIN 28.2 pg (27.0-31.0); MEAN CORPUSCULAR HGB CONC 32.8 g/dL (32.0-36.0); MEAN PLATELET VOLUME 12.8 fL (7.9-10.8); MONOCYTES % (AUTO) 4.2 %; PLT - PLATELET COUNT 76 10^3/uL (130-450); RED BLOOD COUNT 3.72 10^6/uL (4.20-5.40); RED CELL DISTRIBUTION WIDTH 16.1 % (12.0-15.0); WHITE BLOOD COUNT 12.5 x10^3/uL (4.8-10.8)
[2024-04-16 05:46] LABS: ABNORMAL LYMPHS % (MANUAL) 0 %
[2024-04-16 05:55] LABS: MAGNESIUM 1.9 mg/dL (1.7-2.3)
[2024-04-16 06:02] LABS: CALCIUM 8.3 mg/dL (8.5-10.3); CREATININE 3.9 mg/dL (0.6-1.3); POTASSIUM 3.4 mmol/L (3.5-4.5)
[2024-04-16 06:08] LABS: BAND NEUTROPHILS % (MANUAL) 17 %; DIFFERENTIAL COMMENT MANUAL DIFFERENTIAL; EOSINOPHILS # (MANUAL) 0.1 10^3/uL (0-0.7); LYMPHOCYTES # (MANUAL) 0.5 10^3/uL (1.5-3.5); LYMPHOCYTES % (MANUAL) 4 %; MONOCYTES # (MANUAL) 0.6 10^3/uL (0.0-1.0); NEUTROPHILS # (MANUAL) 11.3 10^3/uL (1.5-6.6); PLATELET ESTIMATE, MANUAL DECREASED (<130,000) (NORMAL); RBC MORPHOLOGY (MULTIPLE) NORMAL APPEARANCE (NORMAL)
[2024-04-16] MEDS: DEXTROSE 40% GEL 37.5 GM TUBE PO ONE (06:14)
[2024-04-16] MEDS: LEVOTHYROXINE 88 MCG TABLET PO SCH (08:04)
[2024-04-16] MEDS: ENOXAPARIN 30 MG/0.3 ML SYRINGE SUBQ SCH (09:29)
[2024-04-16 10:15] LABS: ESTIMATED AVERAGE GLUCOSE 148 mg/dL (70-100); HEMOGLOBIN A1c% 6.8 % (4.27-6.07)
[2024-04-16] MEDS: DEXTROSE 40% GEL 37.5 GM TUBE PO STA (12:14)
[2024-04-16] MEDS: DEXTROSE 5%-0.45% NACL 1,000 ML IV SCH (12:16)
--- NOTE | 2024-04-16 14:11 | PROVIDER PROGRESS NOTE ---
Subjective - Prog Note Date Prog Note Date: 04/16/24 Prog Note Time: 14:10 - Subjective Pt reports feeling: No change Subjective: The patient is a 78-year-old female who was admitted to the hospital yesterday with severe sepsis due to acute diverticulitis. She has been receiving IV Zosyn. Overnight the patient developed hypoglycemia and has had persistent hypoglycemia today. When I went to see the patient she is resting on her bed. She is having a little bit more abdominal Discomfort than she did yesterday. She has had no fever or shaking chills. No chest pain or heart palpitations. She has not had any further episodes of nausea vomiting or diarrhea. She has no urinary complaints Current Medications - Current Medications Current Medications: Acetaminophen 650 mg p.o. every 4 hours Lovenox 30 mg subcu daily Humalog sliding scale coverage she states she Levothyroxine 88 mcg p.o. daily and Metoprolol tartrate 25 mg p.o. twice daily Morphine 2 mg IV every 2 hours as needed Zofran 4 mg IV every 6 hours as needed Zofran oral disintegrating tablet 4 mg every 6 hours as needed Oxycodone 5 mg p.o. every 4 hours as needed moderate pain Zosyn 3.375 g every 6 hours Florastor 250 mg p.o. twice daily Hypoglycemic protocol Objective - Vital Signs/Intake & Output Reviewed Vital Signs: Yes Vital Signs: Vital Signs x48h Temp Pulse Resp BP BP Pulse Ox 04/16/24 09:28 108/60 04/16/24 07:25 36.7 C 78 18 108/60 95 Intake & Output: Intake & Output 04/13/24 04/14/24 04/15/24 04/16/24 23:59 23:59 23:59 23:59 Intake Total 1730 2466.667 Balance 1730 2466.667 - Objective General Appearance: positive: No acute distress, Alert Eyes Bilateral: positive: Normal inspection ENT: positive: ENT inspection nml Neck: positive: Nml inspection Respiratory: positive: Chest non-tender, No respiratory distress Cardiovascular: positive: Regular rate & rhythm, No murmur, No gallop. negative: Friction rub Abdomen: positive: Tenderness (She is tender to palpation with guarding in the left upper quadrant and quite tender to palpation across the whole upper abdomen. She has hypoactive bowel sounds) Skin: positive: Color nml, No rash, Warm, Dry Extremities: positive: Non-tender, Full ROM Neurologic/Psychiatric: positive: Oriented x3, CN's nml (2-12) - Lab Results Fish Bones: 04/16/24 04:53 04/16/24 04:53 Other Labs: Lab Results x24hrs 04/16/24 04/16/24 04/16/24 Range/Units 13:39 12:36 12:00 WBC (4.8-10.8) x10^3/uL RBC (4.20-5.40) 10^6/uL Hgb (12.0-16.0) g/dL Hct (37.0-47.0) % MCV (81.0-99.0) fL MCH (27.0-31.0) pg MCHC (32.0-36.0) g/dL RDW (12.0-15.0) % Plt Count (130-450) 10^3/uL MPV (7.9-10.8) fL Neut # (Auto) Lymph # (Auto) [place] # (Auto) Eos # (Auto) Baso # (Auto) Absolute Nucleated RBC Total Counted Band Neuts % (Manual) (0 - 10) % Abnorm Lymph % (Manual) % Nucleated RBC % Neutrophils # (Manual) (1.5-6.6) 10^3/uL Lymphocytes # (Manual) (1.5-3.5) 10^3/uL Monocytes # (Manual) (0.0-1.0) 10^3/uL Eosinophils # (Manual) (0-0.7) 10^3/uL Basophils # (Manual) (0-0.1) 10^3/uL Differential Comment Platelet Estimate (NORMAL) RBC Morph Micro Appear (NORMAL) Sodium (135-145) mmol/L Potassium (3.5-4.5) mmol/L Chloride (101-111) mmol/L Carbon Dioxide (21-32) mmol/L Anion Gap (6-13) BUN (6-20) mg/dL Creatinine (0.6-1.3) mg/dL Estimated GFR (MDRD) (>89) Glucose (74-104) mg/dL POC Whole Bld Glucose 93 62 L 43 L* (70 - 100) mg/dL Estimat Average Glucose (70-100) mg/dL Hemoglobin A1c % (4.27-6.07) % Lactic Acid (0.5-2.2) mmol/L Calcium (8.5-10.3) mg/dL Magnesium (1.7-2.3) mg/dL Urine Color Urine Clarity (CLEAR) Urine pH (5.0-7.5) PH Ur Specific [place] (1.002-1.030) Urine Protein (NEGATIVE) mg/dL Urine Glucose (UA) (NEGATIVE) mg/dL Urine Ketones (NEGATIVE) mg/dL Urine Occult Blood (NEGATIVE) Urine Nitrite (NEGATIVE) Urine Bilirubin (NEGATIVE) Urine Urobilinogen (NORMAL) E.U./dL Ur Leukocyte Esterase (NEGATIVE) Urine RBC (0-5) /HPF Urine WBC (0-5) /HPF Ur Squamous Epith Cells (<= Few) Amorphous Sediment /LPF Urine Bacteria (None Seen) /HPF Ur Microscopic Review Urine Culture Comments Nasal Adenovirus (PCR) Nasal B. parapertussis DNA (PCR) Nasal Coronavir 229E PCR Nasal Coronavir HKU1 PCR Nasal Coronavir NL63 PCR Nasal Coronavir OC43 PCR Nasal Enterovir/Rhinovir PCR Nasal Influenza B PCR Nasal Influenza A PCR Nasal Parainfluen 1 PCR Nasal Parainfluen 2 PCR Nasal Parainfluen 3 PCR Nasal Parainfluen 4 PCR Nasal RSV (PCR) Nasal B.pertussis DNA PCR Nasal C.pneumoniae (PCR) Jonn Human Metapneumo PCR Nasal M.pneumoniae (PCR) Nasal SARS-CoV-2 (PCR) 04/16/24 04/16/24 04/16/24 Range/Units 11:37 08:16 07:27 WBC (4.8-10.8) x10^3/uL RBC (4.20-5.40) 10^6/uL Hgb (12.0-16.0) g/dL Hct (37.0-47.0) % MCV (81.0-99.0) fL MCH (27.0-31.0) pg MCHC (32.0-36.0) g/dL RDW (12.0-15.0) % Plt Count (130-450) 10^3/uL MPV (7.9-10.8) fL Neut # (Auto) Lymph # (Auto) [place] # (Auto) Eos # (Auto) Baso # (Auto) Absolute Nucleated RBC Total Counted Band Neuts % (Manual) (0 - 10) % Abnorm Lymph % (Manual) % Nucleated RBC % Neutrophils # (Manual) (1.5-6.6) 10^3/uL Lymphocytes # (Manual) (1.5-3.5) 10^3/uL Monocytes # (Manual) (0.0-1.0) 10^3/uL Eosinophils # (Manual) (0-0.7) 10^3/uL Basophils # (Manual) (0-0.1) 10^3/uL Differential Comment Platelet Estimate (NORMAL) RBC Morph Micro Appear (NORMAL) Sodium (135-145) mmol/L Potassium (3.5-4.5) mmol/L Chloride (101-111) mmol/L Carbon Dioxide (21-32) mmol/L Anion Gap (6-13) BUN (6-20) mg/dL Creatinine (0.6-1.3) mg/dL Estimated GFR (MDRD) (>89) Glucose (74-104) mg/dL POC Whole Bld Glucose 41 L* 99 (70 - 100) mg/dL Estimat Average Glucose (70-100) mg/dL Hemoglobin A1c % (4.27-6.07) % Lactic Acid 2.0 (0.5-2.2) mmol/L Calcium (8.5-10.3) mg/dL Magnesium (1.7-2.3) mg/dL Urine Color Urine Clarity (CLEAR) Urine pH (5.0-7.5) PH Ur Specific [place] (1.002-1.030) Urine Protein (NEGATIVE) mg/dL Urine Glucose (UA) (NEGATIVE) mg/dL Urine Ketones (NEGATIVE) mg/dL Urine Occult Blood (NEGATIVE) Urine Nitrite (NEGATIVE) Urine Bilirubin (NEGATIVE) Urine Urobilinogen (NORMAL) E.U./dL Ur Leukocyte Esterase (NEGATIVE) Urine RBC (0-5) /HPF Urine WBC (0-5) /HPF Ur Squamous Epith Cells (<= Few) Amorphous Sediment /LPF Urine Bacteria (None Seen) /HPF Ur Microscopic Review Urine Culture Comments Nasal Adenovirus (PCR) Nasal B. parapertussis DNA (PCR) Nasal Coronavir 229E PCR Nasal Coronavir HKU1 PCR Nasal Coronavir NL63 PCR Nasal Coronavir OC43 PCR Nasal Enterovir/Rhinovir PCR Nasal Influenza B PCR Nasal Influenza A PCR Nasal Parainfluen 1 PCR Nasal Parainfluen 2 PCR Nasal Parainfluen 3 PCR Nasal Parainfluen 4 PCR Nasal RSV (PCR) Nasal B.pertussis DNA PCR Nasal C.pneumoniae (PCR) Jonn Human Metapneumo PCR Nasal M.pneumoniae (PCR) Nasal SARS-CoV-2 (PCR) 04/16/24 04/16/24 04/16/24 Range/Units 06:51 06:34 04:53 WBC (4.8-10.8) x10^3/uL RBC (4.20-5.40) 10^6/uL Hgb (12.0-16.0) g/dL Hct (37.0-47.0) % MCV (81.0-99.0) fL MCH (27.0-31.0) pg MCHC (32.0-36.0) g/dL RDW (12.0-15.0) % Plt Count (130-450) 10^3/uL MPV (7.9-10.8) fL Neut # (Auto) Lymph # (Auto) [place] # (Auto) Eos # (Auto) Baso # (Auto) Absolute Nucleated RBC Total Counted Band Neuts % (Manual) (0 - 10) % Abnorm Lymph % (Manual) % Nucleated RBC % Neutrophils # (Manual) (1.5-6.6) 10^3/uL Lymphocytes # (Manual) (1.5-3.5) 10^3/uL Monocytes # (Manual) (0.0-1.0) 10^3/uL Eosinophils # (Manual) (0-0.7) 10^3/uL Basophils # (Manual) (0-0.1) 10^3/uL Differential Comment Platelet Estimate (NORMAL) RBC Morph Micro Appear (NORMAL) Sodium 134 L (135-145) mmol/L Potassium 3.4 L (3.5-4.5) mmol/L Chloride 101 (101-111) mmol/L Carbon Dioxide 27 (21-32) mmol/L Anion Gap 6.0 (6-13) BUN 59 H (6-20) mg/dL Creatinine 3.9 H (0.6-1.3) mg/dL Estimated GFR (MDRD) 11 L (>89) Glucose 47 L* (74-104) mg/dL POC Whole Bld Glucose 82 60 L* (70 - 100) mg/dL Estimat Average Glucose (70-100) mg/dL Hemoglobin A1c % (4.27-6.07) % Lactic Acid (0.5-2.2) mmol/L Calcium 8.3 L (8.5-10.3) mg/dL Magnesium 1.9 (1.7-2.3) mg/dL Urine Color Urine Clarity (CLEAR) Urine pH (5.0-7.5) PH Ur Specific [place] (1.002-1.030) Urine Protein (NEGATIVE) mg/dL Urine Glucose (UA) (NEGATIVE) mg/dL Urine Ketones (NEGATIVE) mg/dL Urine Occult Blood (NEGATIVE) Urine Nitrite (NEGATIVE) Urine Bilirubin (NEGATIVE) Urine Urobilinogen (NORMAL) E.U./dL Ur Leukocyte Esterase (NEGATIVE) Urine RBC (0-5) /HPF Urine WBC (0-5) /HPF Ur Squamous Epith Cells (<= Few) Amorphous Sediment /LPF Urine Bacteria (None Seen) /HPF Ur Microscopic Review Urine Culture Comments Nasal Adenovirus (PCR) Nasal B. parapertussis DNA (PCR) Nasal Coronavir 229E PCR Nasal Coronavir HKU1 PCR Nasal Coronavir NL63 PCR Nasal Coronavir OC43 PCR Nasal Enterovir/Rhinovir PCR Nasal Influenza B PCR Nasal Influenza A PCR Nasal Parainfluen 1 PCR Nasal Parainfluen 2 PCR Nasal Parainfluen 3 PCR Nasal Parainfluen 4 PCR Nasal RSV (PCR) Nasal B.pertussis DNA PCR Nasal C.pneumoniae (PCR) Jonn Human Metapneumo PCR Nasal M.pneumoniae (PCR) Nasal SARS-CoV-2 (PCR) 04/16/24 04/16/24 04/15/24 Range/Units 04:53 04:53 20:57 WBC 12.5 H (4.8-10.8) x10^3/uL RBC 3.72 L (4.20-5.40) 10^6/uL Hgb 10.5 L (12.0-16.0) g/dL Hct 32.0 L (37.0-47.0) % MCV 86.0 (81.0-99.0) fL MCH 28.2 (27.0-31.0) pg MCHC 32.8 (32.0-36.0) g/dL RDW 16.1 H (12.0-15.0) % Plt Count 76 L (130-450) 10^3/uL MPV 12.8 H (7.9-10.8) fL Neut # (Auto) Not Reportable Lymph # (Auto) Not Reportable [place] # (Auto) Not Reportable Eos # (Auto) Not Reportable Baso # (Auto) Not Reportable Absolute Nucleated RBC Not Reportable Total Counted 100 Band Neuts % (Manual) 17 H (0 - 10) % Abnorm Lymph % (Manual) 0 % Nucleated RBC % Not Reportable Neutrophils # (Manual) 11.3 H (1.5-6.6) 10^3/uL Lymphocytes # (Manual) 0.5 L (1.5-3.5) 10^3/uL Monocytes # (Manual) 0.6 (0.0-1.0) 10^3/uL Eosinophils # (Manual) 0.1 (0-0.7) 10^3/uL Basophils # (Manual) 0.0 (0-0.1) 10^3/uL Differential Comment MANUAL DIFFERENTIAL Platelet Estimate DECREASED (<130,000) (NORMAL) RBC Morph Micro Appear NORMAL APPEARANCE (NORMAL) Sodium (135-145) mmol/L Potassium (3.5-4.5) mmol/L Chloride (101-111) mmol/L Carbon Dioxide (21-32) mmol/L Anion Gap (6-13) BUN (6-20) mg/dL Creatinine (0.6-1.3) mg/dL Estimated GFR (MDRD) (>89) Glucose (74-104) mg/dL POC Whole Bld Glucose 120 H (70 - 100) mg/dL Estimat Average Glucose 148 H (70-100) mg/dL Hemoglobin A1c % 6.8 H (4.27-6.07) % Lactic Acid (0.5-2.2) mmol/L Calcium (8.5-10.3) mg/dL Magnesium (1.7-2.3) mg/dL Urine Color Urine Clarity (CLEAR) Urine pH (5.0-7.5) PH Ur Specific [place] (1.002-1.030) Urine Protein (NEGATIVE) mg/dL Urine Glucose (UA) (NEGATIVE) mg/dL Urine Ketones (NEGATIVE) mg/dL Urine Occult Blood (NEGATIVE) Urine Nitrite (NEGATIVE) Urine Bilirubin (NEGATIVE) Urine Urobilinogen (NORMAL) E.U./dL Ur Leukocyte Esterase (NEGATIVE) Urine RBC (0-5) /HPF Urine WBC (0-5) /HPF Ur Squamous Epith Cells (<= Few) Amorphous Sediment /LPF Urine Bacteria (None Seen) /HPF Ur Microscopic Review Urine Culture Comments Nasal Adenovirus (PCR) Nasal B. parapertussis DNA (PCR) Nasal Coronavir 229E PCR Nasal Coronavir HKU1 PCR Nasal Coronavir NL63 PCR Nasal Coronavir OC43 PCR Nasal Enterovir/Rhinovir PCR Nasal Influenza B PCR Nasal Influenza A PCR Nasal Parainfluen 1 PCR Nasal Parainfluen 2 PCR Nasal Parainfluen 3 PCR Nasal Parainfluen 4 PCR Nasal RSV (PCR) Nasal B.pertussis DNA PCR Nasal C.pneumoniae (PCR) Jonn Human Metapneumo PCR Nasal M.pneumoniae (PCR) Nasal SARS-CoV-2 (PCR) 04/15/24 04/15/24 04/15/24 Range/Units 16:35 16:34 16:15 WBC (4.8-10.8) x10^3/uL RBC (4.20-5.40) 10^6/uL Hgb (12.0-16.0) g/dL Hct (37.0-47.0) % MCV (81.0-99.0) fL MCH (27.0-31.0) pg MCHC (32.0-36.0) g/dL RDW (12.0-15.0) % Plt Count (130-450) 10^3/uL MPV (7.9-10.8) fL Neut # (Auto) Lymph # (Auto) [place] # (Auto) Eos # (Auto) Baso # (Auto) Absolute Nucleated RBC Total Counted Band Neuts % (Manual) (0 - 10) % Abnorm Lymph % (Manual) % Nucleated RBC % Neutrophils # (Manual) (1.5-6.6) 10^3/uL Lymphocytes # (Manual) (1.5-3.5) 10^3/uL Monocytes # (Manual) (0.0-1.0) 10^3/uL Eosinophils # (Manual) (0-0.7) 10^3/uL Basophils # (Manual) (0-0.1) 10^3/uL Differential Comment Platelet Estimate (NORMAL) RBC Morph Micro Appear (NORMAL) Sodium (135-145) mmol/L Potassium (3.5-4.5) mmol/L Chloride (101-111) mmol/L Carbon Dioxide (21-32) mmol/L Anion Gap (6-13) BUN (6-20) mg/dL Creatinine (0.6-1.3) mg/dL Estimated GFR (MDRD) (>89) Glucose (74-104) mg/dL POC Whole Bld Glucose 102 H (70 - 100) mg/dL Estimat Average Glucose (70-100) mg/dL Hemoglobin A1c % (4.27-6.07) % Lactic Acid (0.5-2.2) mmol/L Calcium (8.5-10.3) mg/dL Magnesium (1.7-2.3) mg/dL Urine Color YELLOW Urine Clarity CLOUDY (CLEAR) Urine pH 5.5 (5.0-7.5) PH Ur Specific [place] >=1.030 H (1.002-1.030) Urine Protein >=300 H (NEGATIVE) mg/dL Urine Glucose (UA) NEGATIVE (NEGATIVE) mg/dL Urine Ketones TRACE (NEGATIVE) mg/dL Urine Occult Blood MODERATE H (NEGATIVE) Urine Nitrite NEGATIVE (NEGATIVE) Urine Bilirubin SMALL H (NEGATIVE) Urine Urobilinogen 0.2 (NORMAL) (NORMAL) E.U./dL Ur Leukocyte Esterase NEGATIVE (NEGATIVE) Urine RBC 6-10 H (0-5) /HPF Urine WBC 0-3 (0-5) /HPF Ur Squamous Epith Cells RARE Squamous (<= Few) Amorphous Sediment Moderate /LPF Urine Bacteria Rare (None Seen) /HPF Ur Microscopic Review INDICATED Urine Culture Comments NOT INDICATED Nasal Adenovirus (PCR) NOT DETECTED Nasal B. parapertussis DNA (PCR) NOT DETECTED Nasal Coronavir 229E PCR NOT DETECTED Nasal Coronavir HKU1 PCR NOT DETECTED Nasal Coronavir NL63 PCR NOT DETECTED Nasal Coronavir OC43 PCR NOT DETECTED Nasal Enterovir/Rhinovir PCR NOT DETECTED Nasal Influenza B PCR NOT DETECTED Nasal Influenza A PCR NOT DETECTED Nasal Parainfluen 1 PCR NOT DETECTED Nasal Parainfluen 2 PCR NOT DETECTED Nasal Parainfluen 3 PCR NOT DETECTED Nasal Parainfluen 4 PCR NOT DETECTED Nasal RSV (PCR) NOT DETECTED Nasal B.pertussis DNA PCR NOT DETECTED Nasal C.pneumoniae (PCR) NOT DETECTED Jonn Human Metapneumo PCR NOT DETECTED Nasal M.pneumoniae (PCR) NOT DETECTED Nasal SARS-CoV-2 (PCR) NOT DETECTED 04/15/24 04/15/24 Range/Units 15:09 13:31 WBC (4.8-10.8) x10^3/uL RBC (4.20-5.40) 10^6/uL Hgb (12.0-16.0) g/dL Hct (37.0-47.0) % MCV (81.0-99.0) fL MCH (27.0-31.0) pg MCHC (32.0-36.0) g/dL RDW (12.0-15.0) % Plt Count (130-450) 10^3/uL MPV (7.9-10.8) fL Neut # (Auto) Lymph # (Auto) [place] # (Auto) Eos # (Auto) Baso # (Auto) Absolute Nucleated RBC Total Counted Band Neuts % (Manual) (0 - 10) % Abnorm Lymph % (Manual) % Nucleated RBC % Neutrophils # (Manual) (1.5-6.6) 10^3/uL Lymphocytes # (Manual) (1.5-3.5) 10^3/uL Monocytes # (Manual) (0.0-1.0) 10^3/uL Eosinophils # (Manual) (0-0.7) 10^3/uL Basophils # (Manual) (0-0.1) 10^3/uL Differential Comment Platelet Estimate (NORMAL) RBC Morph Micro Appear (NORMAL) Sodium (135-145) mmol/L Potassium (3.5-4.5) mmol/L Chloride (101-111) mmol/L Carbon Dioxide (21-32) mmol/L Anion Gap (6-13) BUN (6-20) mg/dL Creatinine (0.6-1.3) mg/dL Estimated GFR (MDRD) (>89) Glucose (74-104) mg/dL POC Whole Bld Glucose (70 - 100) mg/dL Estimat Average Glucose (70-100) mg/dL Hemoglobin A1c % (4.27-6.07) % Lactic Acid 2.9 H (0.5-2.2) mmol/L Calcium (8.5-10.3) mg/dL Magnesium 1.3 L (1.7-2.3) mg/dL Urine Color Urine Clarity (CLEAR) Urine pH (5.0-7.5) PH Ur Specific [place] (1.002-1.030) Urine Protein (NEGATIVE) mg/dL Urine Glucose (UA) (NEGATIVE) mg/dL Urine Ketones (NEGATIVE) mg/dL Urine Occult Blood (NEGATIVE) Urine Nitrite (NEGATIVE) Urine Bilirubin (NEGATIVE) Urine Urobilinogen (NORMAL) E.U./dL Ur Leukocyte Esterase (NEGATIVE) Urine RBC (0-5) /HPF Urine WBC (0-5) /HPF Ur Squamous Epith Cells (<= Few) Amorphous Sediment /LPF Urine Bacteria (None Seen) /HPF Ur Microscopic Review Urine Culture Comments Nasal Adenovirus (PCR) Nasal B. parapertussis DNA (PCR) Nasal Coronavir 229E PCR Nasal Coronavir HKU1 PCR Nasal Coronavir NL63 PCR Nasal Coronavir OC43 PCR Nasal Enterovir/Rhinovir PCR Nasal Influenza B PCR Nasal Influenza A PCR Nasal Parainfluen 1 PCR Nasal Parainfluen 2 PCR Nasal Parainfluen 3 PCR Nasal Parainfluen 4 PCR Nasal RSV (PCR) Nasal B.pertussis DNA PCR Nasal C.pneumoniae (PCR) Jonn Human Metapneumo PCR Nasal M.pneumoniae (PCR) Nasal SARS-CoV-2 (PCR) ABX Reporting Has patient been on IV antibiotics over the past 48 hours?: Yes Sepsis Event Note (H) - Evaluation Current Stage of Sepsis: Severe sepsis Possible source of Sepsis: positive: GI tract/intra-abdominal - Sepsis Criteria Sepsis Criteria: Recorded Respiratory Rate greater than 20, WBC count greater than 10% bands, WBC count greater than 12,000 or less than 4000, INFORMATION TECHNOLOGY OFFICER: altered consciousness (unrelated to primary neuro pathology), SBP less than 90 mmHg, Metabolic: lactate > 2 mmol/L, Hematologic: platelets < 100,000; INR > 1.5, or a PTT>60 seconds Assessment/Plan - Problem List (1) Severe sepsis Impression: The patient's white blood cell count has improved. However she has had worsening thrombocytopenia and actually worsening renal failure. She has developed hypoglycemia as well. Continue IV Zosyn. The source of her sepsis appears to be gram-negative bacteremia due to diverticulitis. (2) Diverticulitis Impression: Continue IV Zosyn. This is day #2 of treatment. Interestingly the patient is having worsening pain on exam in the left upper quadrant as well. (3) E coli bacteremia Impression: The patient has 2 out of 2 blood cultures positive for gram-negative bacteremia. It appears that the source is E. coli. Will keep her on IV Zosyn today and likely will change her to IV Rocephin tomorrow. Will repeat blood cultures tomorrow to document clearing (4) Acute metabolic encephalopathy Impression: The patient's acute encephalopathy has resolved. The patient is alert awake alert and oriented x 3 today. (5) Acute renal failure Impression: the patient likely has an element of ATN. She did receive IV Toradol in the emergency room yesterday. Also she was quite ill at home for some time before she came to the hospital with intractable nausea vomiting and diarrhea. She could have had some hypotension at home. Her blood pressures were low when she got to the hospital and this could have resulted in ATN as well. Her creatinine has risen from 3.5-3.9 today. She had mild left hydronephrosis yesterday but I do not believe that that is enough to account for the rise in creatinine. She will continue IV fluids. We will avoid any nephrotoxic medications and she will have a chemistry panel drawn in the morning (6) Renal mass Impression: She will need to see urology as an outpatient for further workup. (7) Renal cyst Impression: She has multiple renal cysts and she has been seen by urology in the past for this. Again she will need to see urology as an outpatient. (8) Hydronephrosis of left kidney Impression: As above (9) Diabetes Impression: The patient is developed some hypoglycemia today and overnight last night. She has been treated with hypoglycemic protocol. Have changed her IV fluids and a dded D5. This is likely due to her sepsis and lack of p.o. intake. (10) Hypertension Impression: Will continue to hold her blood pressure medications except for her metoprolol. Her dose will be cut back to 25 mg p.o. twice daily. Her nifedipine and hydroch lorothiazide and losartan have all been held. Her blood pressure is on the low side but stable (11) Hyperlipidemia Impression: She will resume her pravastatin after discharge (12) Grief reaction Impression: She has declined grief counseling. She should discuss this with her primary care physician she. She might benefit from a low-dose depression medication. (13) Hypomagnesemia Impression: Repleted and resolved (14) Lung cancer Impression: Status postresection. There is been no further evidence of recurrence. She does have a new suspicious renal mass that will need outpatient follow-up. (15) Thrombocytopenia Impression: Secondary to sepsis. Platelet level is slightly less than it was yesterday. She will have a CBC drawn in the morning we will continue to treat her underlying sepsis. (16) Hyponatremia Impression: Slightly improved. Continue IV fluids (17) Obesity (BMI 30-39.9) Impression: When she recuperates from this acute illness weight loss is recommended through dietary modification and exercise as tolerated Time spent: 35 minutes This patient was discussed with Dr Benavidez who is in agreement with the assessment and plan
[2024-04-16] MEDS: ONDANSETRON 4 MG/2 ML VIAL IVP PRN (16:16)
[2024-04-16] MEDS: oxyCODONE 5 MG TABLET PO PRN (16:16)
[2024-04-16] MEDS: DEXTROSE 50% ABBOJECT 25 GM/50 ML SYRINGE IVP ONE ×2 (16:36→21:14)
--- NOTE | 2024-04-16 17:30 | PHARMACY PROGRESS NOTE ---
- Best Possible Medication History Admit Date and Time: 04/15/24 1648 Processed by: Pharmacy Medications reviewed in ED?: No Medication History completed: Yes Patient Interview: Pt unable to participate Secondary Source(s): Insurance records As the person ultimately responsible for medication therapy, providers are able to order a medication from an existing home medication list in [facility] via the "Reconcile Routine" prior to Confirmation of that medication by client support coordinator. Such practice is discouraged except when the physician, in their clinical judgment, deems that a medical need exists for a medication without regard to previous use.
[2024-04-16] MEDS ORDERED: DEXTROSE 5% 1,000 ML IV SCH (22:00)
[2024-04-16] MEDS: DEXTROSE 10% 1,000 ML IV SCH (22:44)
[2024-04-17 05:12] LABS: BASOPHILS % (AUTO) 0.4 %; EOSINOPHILS # (AUTO) 0.3 10^3/uL (0.0-0.7); EOSINOPHILS % (AUTO) 2.7 %; HCT - HEMATOCRIT 31.9 % (37.0-47.0); HGB - HEMOGLOBIN 10.3 g/dL (12.0-16.0); LYMPHOCYTES # (AUTO) 0.5 10^3/uL (1.5-3.5); LYMPHOCYTES % (AUTO) 5.2 %; MEAN CORPUSCULAR HEMOGLOBIN 28.1 pg (27.0-31.0); MEAN CORPUSCULAR HGB CONC 32.3 g/dL (32.0-36.0); MEAN CORPUSCULAR VOLUME 86.9 fL (81.0-99.0); MEAN PLATELET VOLUME 12.6 fL (7.9-10.8); MONOCYTES # (AUTO) 0.9 10^3/uL (0.0-1.0); MONOCYTES % (AUTO) 8.5 %; NEUTROPHILS # (AUTO) 8.3 10^3/uL (1.5-6.6); NEUTROPHILS % (AUTO) 82.8 %; PLT - PLATELET COUNT 84 10^3/uL (130-450); RED BLOOD COUNT 3.67 10^6/uL (4.20-5.40); RED CELL DISTRIBUTION WIDTH 16.3 % (12.0-15.0)
[2024-04-17 05:31] LABS: CALCIUM 7.8 mg/dL (8.5-10.3); CREATININE 3.1 mg/dL (0.6-1.3); MAGNESIUM 1.9 mg/dL (1.7-2.3); POTASSIUM 3.4 mmol/L (3.5-4.5)
[2024-04-17] MEDS: ONDANSETRON ODT 4 MG TABLET TL PRN (06:18)
[2024-04-17] MEDS: POTASSIUM CHLORIDE 20 MEQ TABLET PO STA (08:01)
[2024-04-17] MEDS: INSULIN LISPRO 300 UNIT/3 ML PEN SUBQ SCH (08:02)
[2024-04-17] MEDS: cefTRIAXone 2 GM in SODIUM CHLORIDE 0.9% MINIBAG 100 ML IV SCH (09:01)
[2024-04-17] MEDS: HEPARIN 5,000 UNIT/ML VIAL SUBQ SCH (10:17)
--- NOTE | 2024-04-17 12:36 | XRAY Report ---
PROCEDURE: Abdomen 2 V INDICATIONS: Abdominal distention, pain. r/o ileus TECHNIQUE: 5 views of the abdomen were acquired. COMPARISON: CT dated 04/15/2024. FINDINGS: Surgical changes and devices: None. Bowel: No pneumoperitoneum. The bowel gas pattern is nonobstructive. Stool load within normal limit s. Soft tissues: No masses; visualized solid organ contours appear normal in size. No suspicious abdom inal calcifications. Bones: No suspicious bony abnormalities. IMPRESSION: Nonobstructive bowel gas pattern. No acute radiographic abnormality seen. Reviewed by: Andrew Luis MD on 04/17/2024 12:35 PM PDT Approved by: Andrew Luis MD on 04/17/2024 12:35 PM PDT Station ID: [id number]
--- NOTE | 2024-04-17 13:02 | PROVIDER PROGRESS NOTE ---
Subjective - Prog Note Date Prog Note Date: 04/17/24 Prog Note Time: 13:00 - Subjective Pt reports feeling: No change Subjective: The patient is resting in her bed. She says she is really not feeling as well today as she has been. She has some low-grade nausea and says that her abdomen is just sore. We reviewed her labs and I discussed the plan of care with her family at the bedside. She continues to deny fever or shaking chills. No chest pain or heart palpitations. Some low-grade nausea today. No vomiting. She has passed some gas but has not yet had a bowel movement. She did have an abdominal x-ray this afternoon to rule out a developing ileus. The abdominal x-ray revealed a nonspecific bowel pattern but nothing acute. The patient denies dysuria or urinary frequency. Current Medications - Current Medications Current Medications: Acetaminophen 650 mg p.o. every 4 hours Heparin 5000 mg q8h Humalog sliding low dose sliding scale coverage Levothyroxine 88 mcg p.o. daily and Metoprolol tartrate 25 mg p.o. twice daily Morphine 2 mg IV every 2 hours as needed Zofran 4 mg IV every 6 hours as needed Zofran oral disintegrating tablet 4 mg every 6 hours as needed Oxycodone 5 mg p.o. every 4 hours as needed moderate pain Zosyn 3.375 g every 6 hours Florastor 250 mg p.o. twice daily Hypoglycemic protocol Objective - Vital Signs/Intake & Output Reviewed Vital Signs: Yes Vital Signs: Vital Signs x48h Temp Pulse Resp BP BP Pulse Ox 04/17/24 08:01 131/71 H 04/17/24 07:32 36.4 C L 75 18 131/71 H 95 Intake & Output: Intake & Output 04/14/24 04/15/24 04/16/24 04/17/24 23:59 23:59 23:59 23:59 Intake Total 1730 4342.917 1360.00 Balance 1730 4342.917 1360.00 - Objective General Appearance: positive: Other (The patient is having some crampy abdominal pain and bloating. Mild nausea) Eyes Bilateral: positive: Normal inspection ENT: positive: ENT inspection nml Neck: positive: Nml inspection Respiratory: positive: Chest non-tender, No respiratory distress, Breath sounds nml Cardiovascular: positive: No murmur, No gallop, Tachycardia. negative: Friction rub Abdomen: positive: Other (Mild distention and abdominal pain diffusely. She has passed some gas but has not yet had a bowel movement.) Skin: positive: Color nml, No rash, Warm, Dry Extremities: positive: Non-tender, Full ROM Neurologic/Psychiatric: positive: Oriented x3, CN's nml (2-12) - Lab Results Fish Bones: 04/17/24 05:02 04/17/24 05:02 Other Labs: Lab Results x24hrs 04/17/24 04/17/24 04/17/24 Range/Units 11:49 11:23 07:24 WBC (4.8-10.8) x10^3/uL RBC (4.20-5.40) 10^6/uL Hgb (12.0-16.0) g/dL Hct (37.0-47.0) % MCV (81.0-99.0) fL MCH (27.0-31.0) pg MCHC (32.0-36.0) g/dL RDW (12.0-15.0) % Plt Count (130-450) 10^3/uL MPV (7.9-10.8) fL Neut # (Auto) (1.5-6.6) 10^3/uL Lymph # (Auto) (1.5-3.5) 10^3/uL [place] # (Auto) (0.0-1.0) 10^3/uL Eos # (Auto) (0.0-0.7) 10^3/uL Baso # (Auto) (0.0-0.1) 10^3/uL Absolute Nucleated RBC x10^3/uL Nucleated RBC % /100WBC Sodium (135-145) mmol/L Potassium (3.5-4.5) mmol/L Chloride (101-111) mmol/L Carbon Dioxide (21-32) mmol/L Anion Gap (6-13) BUN (6-20) mg/dL Creatinine (0.6-1.3) mg/dL Estimated GFR (MDRD) (>89) Glucose (74-104) mg/dL POC Whole Bld Glucose 67 L 40 L* 88 (70 - 100) mg/dL Calcium (8.5-10.3) mg/dL Magnesium (1.7-2.3) mg/dL 04/17/24 04/17/24 04/17/24 Range/Units 05:02 05:02 03:54 WBC 10.0 (4.8-10.8) x10^3/uL RBC 3.67 L (4.20-5.40) 10^6/uL Hgb 10.3 L (12.0-16.0) g/dL Hct 31.9 L (37.0-47.0) % MCV 86.9 (81.0-99.0) fL MCH 28.1 (27.0-31.0) pg MCHC 32.3 (32.0-36.0) g/dL RDW 16.3 H (12.0-15.0) % Plt Count 84 L (130-450) 10^3/uL MPV 12.6 H (7.9-10.8) fL Neut # (Auto) 8.3 H (1.5-6.6) 10^3/uL Lymph # (Auto) 0.5 L (1.5-3.5) 10^3/uL [place] # (Auto) 0.9 (0.0-1.0) 10^3/uL Eos # (Auto) 0.3 (0.0-0.7) 10^3/uL Baso # (Auto) 0.0 (0.0-0.1) 10^3/uL Absolute Nucleated RBC 0.00 x10^3/uL Nucleated RBC % 0.0 /100WBC Sodium 130 L (135-145) mmol/L Potassium 3.4 L (3.5-4.5) mmol/L Chloride 99 L (101-111) mmol/L Carbon Dioxide 24 (21-32) mmol/L Anion Gap 7.0 (6-13) BUN 43 H (6-20) mg/dL Creatinine 3.1 H (0.6-1.3) mg/dL Estimated GFR (MDRD) 14 L (>89) Glucose 77 (74-104) mg/dL POC Whole Bld Glucose 84 (70 - 100) mg/dL Calcium 7.8 L (8.5-10.3) mg/dL Magnesium 1.9 (1.7-2.3) mg/dL 04/17/24 04/17/24 04/17/24 Range/Units 02:55 01:57 00:55 WBC (4.8-10.8) x10^3/uL RBC (4.20-5.40) 10^6/uL Hgb (12.0-16.0) g/dL Hct (37.0-47.0) % MCV (81.0-99.0) fL MCH (27.0-31.0) pg MCHC (32.0-36.0) g/dL RDW (12.0-15.0) % Plt Count (130-450) 10^3/uL MPV (7.9-10.8) fL Neut # (Auto) (1.5-6.6) 10^3/uL Lymph # (Auto) (1.5-3.5) 10^3/uL [place] # (Auto) (0.0-1.0) 10^3/uL Eos # (Auto) (0.0-0.7) 10^3/uL Baso # (Auto) (0.0-0.1) 10^3/uL Absolute Nucleated RBC x10^3/uL Nucleated RBC % /100WBC Sodium (135-145) mmol/L Potassium (3.5-4.5) mmol/L Chloride (101-111) mmol/L Carbon Dioxide (21-32) mmol/L Anion Gap (6-13) BUN (6-20) mg/dL Creatinine (0.6-1.3) mg/dL Estimated GFR (MDRD) (>89) Glucose (74-104) mg/dL POC Whole Bld Glucose 78 80 78 (70 - 100) mg/dL Calcium (8.5-10.3) mg/dL Magnesium (1.7-2.3) mg/dL 04/16/24 04/16/24 04/16/24 Range/Units 23:07 21:43 21:01 WBC (4.8-10.8) x10^3/uL RBC (4.20-5.40) 10^6/uL Hgb (12.0-16.0) g/dL Hct (37.0-47.0) % MCV (81.0-99.0) fL MCH (27.0-31.0) pg MCHC (32.0-36.0) g/dL RDW (12.0-15.0) % Plt Count (130-450) 10^3/uL MPV (7.9-10.8) fL Neut # (Auto) (1.5-6.6) 10^3/uL Lymph # (Auto) (1.5-3.5) 10^3/uL [place] # (Auto) (0.0-1.0) 10^3/uL Eos # (Auto) (0.0-0.7) 10^3/uL Baso # (Auto) (0.0-0.1) 10^3/uL Absolute Nucleated RBC x10^3/uL Nucleated RBC % /100WBC Sodium (135-145) mmol/L Potassium (3.5-4.5) mmol/L Chloride (101-111) mmol/L Carbon Dioxide (21-32) mmol/L Anion Gap (6-13) BUN (6-20) mg/dL Creatinine (0.6-1.3) mg/dL Estimated GFR (MDRD) (>89) Glucose (74-104) mg/dL POC Whole Bld Glucose 97 97 60 L* (70 - 100) mg/dL Calcium (8.5-10.3) mg/dL Magnesium (1.7-2.3) mg/dL 04/16/24 04/16/24 04/16/24 Range/Units 20:26 17:00 16:33 WBC (4.8-10.8) x10^3/uL RBC (4.20-5.40) 10^6/uL Hgb (12.0-16.0) g/dL Hct (37.0-47.0) % MCV (81.0-99.0) fL MCH (27.0-31.0) pg MCHC (32.0-36.0) g/dL RDW (12.0-15.0) % Plt Count (130-450) 10^3/uL MPV (7.9-10.8) fL Neut # (Auto) (1.5-6.6) 10^3/uL Lymph # (Auto) (1.5-3.5) 10^3/uL [place] # (Auto) (0.0-1.0) 10^3/uL Eos # (Auto) (0.0-0.7) 10^3/uL Baso # (Auto) (0.0-0.1) 10^3/uL Absolute Nucleated RBC x10^3/uL Nucleated RBC % /100WBC Sodium (135-145) mmol/L Potassium (3.5-4.5) mmol/L Chloride (101-111) mmol/L Carbon Dioxide (21-32) mmol/L Anion Gap (6-13) BUN (6-20) mg/dL Creatinine (0.6-1.3) mg/dL Estimated GFR (MDRD) (>89) Glucose (74-104) mg/dL POC Whole Bld Glucose 41 L* 132 H 45 L* (70 - 100) mg/dL Calcium (8.5-10.3) mg/dL Magnesium (1.7-2.3) mg/dL 04/16/24 04/16/24 Range/Units 16:26 13:39 WBC (4.8-10.8) x10^3/uL RBC (4.20-5.40) 10^6/uL Hgb (12.0-16.0) g/dL Hct (37.0-47.0) % MCV (81.0-99.0) fL MCH (27.0-31.0) pg MCHC (32.0-36.0) g/dL RDW (12.0-15.0) % Plt Count (130-450) 10^3/uL MPV (7.9-10.8) fL Neut # (Auto) (1.5-6.6) 10^3/uL Lymph # (Auto) (1.5-3.5) 10^3/uL [place] # (Auto) (0.0-1.0) 10^3/uL Eos # (Auto) (0.0-0.7) 10^3/uL Baso # (Auto) (0.0-0.1) 10^3/uL Absolute Nucleated RBC x10^3/uL Nucleated RBC % /100WBC Sodium (135-145) mmol/L Potassium (3.5-4.5) mmol/L Chloride (101-111) mmol/L Carbon Dioxide (21-32) mmol/L Anion Gap (6-13) BUN (6-20) mg/dL Creatinine (0.6-1.3) mg/dL Estimated GFR (MDRD) (>89) Glucose (74-104) mg/dL POC Whole Bld Glucose 35 L* 93 (70 - 100) mg/dL Calcium (8.5-10.3) mg/dL Magnesium (1.7-2.3) mg/dL ABX Reporting Has patient been on IV antibiotics over the past 48 hours?: Yes Sepsis Event Note (H) - Evaluation Current Stage of Sepsis: Severe sepsis Possible source of Sepsis: positive: GI tract/intra-abdominal - Sepsis Criteria Sepsis Criteria: Recorded Respiratory Rate greater than 20, WBC count greater than 10% bands, WBC count greater than 12,000 or less than 4000, [employer]ANT: altered consciousness (unrelated to primary neuro pathology), SBP less than 90 mmHg, Metabolic: lactate > 2 mmol/L, Hematologic: platelets < 100,000; INR > 1.5, or a PTT>60 seconds Assessment/Plan - Problem List (1) Severe sepsis Impression: The patient is slowly improving. Platelet level is slightly higher than yesterday. Creatinine is still above 3 but trending downwards. White blood cell count has normalized. The patient is still having some abdominal pain. Will advance her diet as tolerated. Her antibiotic therapy was changed from IV Zosyn to 2 g of IV ceftriaxone today. (2) Diverticulitis Impression: Blood cultures are growing E. coli. Her IV antibiotics were changed to 2 g of IV Rocephin daily. (3) E coli bacteremia Impression: Repeat blood cultures x 2 were ordered today to document clearing. Continue to IV Rocephin (4) Acute metabolic encephalopathy Impression: Secondary to sepsis. Resolved (5) Acute renal failure Impression: Secondary to sepsis with likely ATN possibly due to hypotension and Toradol that was given in the emergency room. Her creatinine is trending down but is still greater than 3. She will have a chemistry panel in the morning and hopefully will begin to see some improvement. Nephrotoxic medications and continue IV fluids (6) Renal mass Impression: She will need to see urology as an outpatient. Outpatient workup for this. (7) Renal cyst Impression: Follow-up with urology as an outpatient (8) Hydronephrosis of left kidney Impression: As above (9) Diabetes Impression: The patient has had some rather significant hypoglycemia. This was felt to be due to her glimepiride washing out of her system as well as her underlying sepsis. Patient tells me she has not been taking glimepiride at home. Her family is going to bring in her pills from home so that we can see what she is having. She has hypoglycemic protocol in place. Blood sugar got down to 40 today. (10) Hypertension Impression: Blood pressure is improving. Continue decreased dose of metoprolol. If her blood pressure remained stable overnight we will start adding back her blood pre ssure medications tomorrow. (12) Grief reaction Impression: She should discuss this with her primary care physician when she gets out of the hospital. She declined grief counseling. She may benefit from a low-dose depression medicine but wants to talk to her primary care provider about this (13) Hypomagnesemia Impression: Repleted and resolved (14) Lung cancer Impression: Status post robotic resection. She does have a suspicious looking renal mass but no evidence of recurrence of her lung cancer. She will need outpatient workup for this. (15) Thrombocytopenia Impression: The patients platelet level is improving. But is still low at 84. This is due to underlying sepsis. (16) Hyponatremia Impression: Her sodium level is still low. She will have a chemistry panel in the morning (17) Obesity (BMI 30-39.9) Impression: After the patient recuperates from this acute illness would recommend weight loss through dietary modification and exercise as tolerated. Time spent: 35 minutes This case was discussed at length with Dr. Benavidez. He is in agreement with the assessment and plan
[2024-04-17] MEDS: ACETAMINOPHEN 325 MG TABLET PO PRN (16:27)
--- NOTE | 2024-04-17 20:10 | XRAY Report ---
PROCEDURE: Chest 1V INDICATIONS: New onset shortness of breath TECHNIQUE: One view of the chest was acquired. COMPARISON: 04/15/2024 FINDINGS: Surgical changes and devices: None. Lungs and pleura: Left basilar atelectasis and or infiltrate Mediastinum: Heart size is enlarged. Mild vascular congestion present. Bones and chest wall: No suspicious bony lesions. Overlying soft tissues appear unremarkable. IMPRESSION: Left basilar atelectasis and or infiltrate. Cardiomegaly and mild vascular congestion Reviewed by: Bradley Lopes MD on 04/17/2024 7:09 PM [facility]DT Approved by: Bradley Lopes MD on 04/17/2024 7:09 PM [facility]DT Station ID: [id number]
[2024-04-17] MEDS: CALCIUM CARBONATE CHEW 500 MG TABLET PO SCH (21:14)
[2024-04-18 05:23] LABS: BASOPHILS % (AUTO) 0.3 %; EOSINOPHILS # (AUTO) 0.3 10^3/uL (0.0-0.7); EOSINOPHILS % (AUTO) 3.3 %; HGB - HEMOGLOBIN 10.8 g/dL (12.0-16.0); LYMPHOCYTES # (AUTO) 0.5 10^3/uL (1.5-3.5); LYMPHOCYTES % (AUTO) 5.9 %; MEAN CORPUSCULAR HEMOGLOBIN 28.9 pg (27.0-31.0); MEAN CORPUSCULAR HGB CONC 33.8 g/dL (32.0-36.0); MEAN CORPUSCULAR VOLUME 85.6 fL (81.0-99.0); MEAN PLATELET VOLUME 12.7 fL (7.9-10.8); MONOCYTES # (AUTO) 1.1 10^3/uL (0.0-1.0); MONOCYTES % (AUTO) 12.6 %; NEUTROPHILS % (AUTO) 77.2 %; PLT - PLATELET COUNT 93 10^3/uL (130-450); RED BLOOD COUNT 3.74 10^6/uL (4.20-5.40); RED CELL DISTRIBUTION WIDTH 16.6 % (12.0-15.0)
[2024-04-18] MEDS: SODIUM CHLORIDE FLUSH 0.9% 10 ML SYRINGE IVP PRN (05:33)
[2024-04-18 05:35] LABS: CALCIUM 8.6 mg/dL (8.5-10.3); CREATININE 2.5 mg/dL (0.6-1.3); CRP - C-REACTIVE PROTEIN 7.4 mg/dL (<0.5); MAGNESIUM 1.9 mg/dL (1.7-2.3); POTASSIUM 3.7 mmol/L (3.5-4.5)
[2024-04-18] MEDS ORDERED: FUROSEMIDE 40 MG/4 ML VIAL IVP SCH (08:00)
[2024-04-18] MEDS: FUROSEMIDE 20 MG/2 ML VIAL IVP SCH (08:35)
--- NOTE | 2024-04-18 12:00 | PROVIDER PROGRESS NOTE ---
Subjective - Prog Note Date Prog Note Date: 04/18/24 Prog Note Time: 12:00 - Subjective Pt reports feeling: No change Subjective: The patient is a 78-year-old female who was admitted to the hospital with severe sepsis due to diverticulitis. Blood cultures were positive for E. coli. The patient had been having severe nausea vomiting and diarrhea prior to coming into the hospital. Since admission she really has not had a bowel movement. Clinically she has improved. Her acute renal failure is improving, her encephalopathy has cleared, platelet level is improving as well. However the patient is having some abdominal distention and crampy abdominal pain. Today when I saw her she said she had a difficult night with this. She actually had some nausea and dry heaving this morning. She has had no fever or shaking chills. No chest pain or heart palpitations. She does have some mild abdominal distention and crampy abdominal pain. She says she has passed only a little bit of gas. She has not had a bowel movement. She has no urinary complaints. Yesterday she had an abdominal x-ray which revealed a nonspecific bowel gas pattern but no evidence of ileus or obstruction. Current Medications - Current Medications Current Medications: Acetaminophen 650 mg p.o. every 4 hours Heparin 5000 mg q8h Humalog sliding low dose sliding scale coverage Levothyroxine 88 mcg p.o. daily and Metoprolol tartrate 25 mg p.o. twice daily Morphine 2 mg IV every 2 hours as needed Zofran 4 mg IV every 6 hours as needed Zofran oral disintegrating tablet 4 mg every 6 hours as needed Oxycodone 5 mg p.o. every 4 hours as needed moderate pain Zosyn 3.375 g every 6 hours Florastor 250 mg p.o. twice daily Hypoglycemic protocol Objective - Vital Signs/Intake & Output Reviewed Vital Signs: Yes Vital Signs: Vital Signs x48h Temp Pulse Resp BP Pulse Ox 04/18/24 07:27 36.4 C L 74 20 151/80 H 93 Intake & Output: Intake & Output 04/15/24 04/16/24 04/17/24 04/18/24 23:59 23:59 23:59 23:59 Intake Total 1730 4342.917 2591.25 357 Output Total 425 Balance 1730 4342.917 2166.25 357 - Objective General Appearance: positive: No acute distress, Other (She appears to have some mild abdominal pain) Eyes Bilateral: positive: Normal inspection ENT: positive: ENT inspection nml Neck: positive: Nml inspection Respiratory: positive: Chest non-tender, No respiratory distress, Breath sounds nml Cardiovascular: positive: Regular rate & rhythm, No murmur, No gallop. negative: Friction rub Abdomen: positive: No organomegaly, Nml bowel sounds, Tenderness, Other (Her she has mild tenderness to palpation diffusely. Abdomen is somewhat distended) Skin: positive: Color nml, No rash, Warm, Dry Extremities: positive: Non-tender, Full ROM Neurologic/Psychiatric: positive: Oriented x3, CN's nml (2-12) - Lab Results Fish Bones: 04/18/24 05:15 04/18/24 05:15 Other Labs: Lab Results x24hrs 04/18/24 04/18/24 04/18/24 Range/Units 11:10 07:17 05:15 WBC (4.8-10.8) x10^3/uL RBC (4.20-5.40) 10^6/uL Hgb (12.0-16.0) g/dL Hct (37.0-47.0) % MCV (81.0-99.0) fL MCH (27.0-31.0) pg MCHC (32.0-36.0) g/dL RDW (12.0-15.0) % Plt Count (130-450) 10^3/uL MPV (7.9-10.8) fL Neut # (Auto) (1.5-6.6) 10^3/uL Lymph # (Auto) (1.5-3.5) 10^3/uL [place] # (Auto) (0.0-1.0) 10^3/uL Eos # (Auto) (0.0-0.7) 10^3/uL Baso # (Auto) (0.0-0.1) 10^3/uL Absolute Nucleated RBC x10^3/uL Nucleated RBC % /100WBC Sodium (135-145) mmol/L Potassium (3.5-4.5) mmol/L Chloride (101-111) mmol/L Carbon Dioxide (21-32) mmol/L Anion Gap (6-13) BUN (6-20) mg/dL Creatinine (0.6-1.3) mg/dL Estimated GFR (MDRD) (>89) Glucose (74-104) mg/dL POC Whole Bld Glucose 185 H 153 H (70 - 100) mg/dL Calcium (8.5-10.3) mg/dL Magnesium (1.7-2.3) mg/dL C-Reactive Protein (<0.5) mg/dL Procalcitonin Immunoas 9.02 H* (<0.5) ng/mL 04/18/24 04/18/24 04/17/24 Range/Units 05:15 05:15 21:18 WBC 9.0 (4.8-10.8) x10^3/uL RBC 3.74 L (4.20-5.40) 10^6/uL Hgb 10.8 L (12.0-16.0) g/dL Hct 32.0 L (37.0-47.0) % MCV 85.6 (81.0-99.0) fL MCH 28.9 (27.0-31.0) pg MCHC 33.8 (32.0-36.0) g/dL RDW 16.6 H (12.0-15.0) % Plt Count 93 L (130-450) 10^3/uL MPV 12.7 H (7.9-10.8) fL Neut # (Auto) 7.0 H (1.5-6.6) 10^3/uL Lymph # (Auto) 0.5 L (1.5-3.5) 10^3/uL [place] # (Auto) 1.1 H (0.0-1.0) 10^3/uL Eos # (Auto) 0.3 (0.0-0.7) 10^3/uL Baso # (Auto) 0.0 (0.0-0.1) 10^3/uL Absolute Nucleated RBC 0.00 x10^3/uL Nucleated RBC % 0.0 /100WBC Sodium 132 L (135-145) mmol/L Potassium 3.7 (3.5-4.5) mmol/L Chloride 104 (101-111) mmol/L Carbon Dioxide 25 (21-32) mmol/L Anion Gap 3.0 L (6-13) BUN 30 H (6-20) mg/dL Creatinine 2.5 H (0.6-1.3) mg/dL Estimated GFR (MDRD) 19 L (>89) Glucose 197 H (74-104) mg/dL POC Whole Bld Glucose 134 H (70 - 100) mg/dL Calcium 8.6 (8.5-10.3) mg/dL Magnesium 1.9 (1.7-2.3) mg/dL C-Reactive Protein 7.4 H (<0.5) mg/dL Procalcitonin Immunoas (<0.5) ng/mL 04/17/24 04/17/24 Range/Units 16:26 13:25 WBC (4.8-10.8) x10^3/uL RBC (4.20-5.40) 10^6/uL Hgb (12.0-16.0) g/dL Hct (37.0-47.0) % MCV (81.0-99.0) fL MCH (27.0-31.0) pg MCHC (32.0-36.0) g/dL RDW (12.0-15.0) % Plt Count (130-450) 10^3/uL MPV (7.9-10.8) fL Neut # (Auto) (1.5-6.6) 10^3/uL Lymph # (Auto) (1.5-3.5) 10^3/uL [place] # (Auto) (0.0-1.0) 10^3/uL Eos # (Auto) (0.0-0.7) 10^3/uL Baso # (Auto) (0.0-0.1) 10^3/uL Absolute Nucleated RBC x10^3/uL Nucleated RBC % /100WBC Sodium (135-145) mmol/L Potassium (3.5-4.5) mmol/L Chloride (101-111) mmol/L Carbon Dioxide (21-32) mmol/L Anion Gap (6-13) BUN (6-20) mg/dL Creatinine (0.6-1.3) mg/dL Estimated GFR (MDRD) (>89) Glucose (74-104) mg/dL POC Whole Bld Glucose 107 H 114 H (70 - 100) mg/dL Calcium (8.5-10.3) mg/dL Magnesium (1.7-2.3) mg/dL C-Reactive Protein (<0.5) mg/dL Procalcitonin Immunoas (<0.5) ng/mL - Diagnostic Imaging Diagnostic Imaging Results: positive: Final report reviewed ABX Reporting Has patient been on IV antibiotics over the past 48 hours?: Yes Sepsis Event Note (H) - Evaluation Current Stage of Sepsis: Severe sepsis Possible source of Sepsis: positive: GI tract/intra-abdominal - Sepsis Criteria Sepsis Criteria: Recorded Respiratory Rate greater than 20, WBC count greater than 10% bands, WBC count greater than 12,000 or less than 4000, [employer]INEER: altered consciousness (unrelated to primary neuro pathology), SBP less than 90 mmHg, Metabolic: lactate > 2 mmol/L, Hematologic: platelets < 100,000; INR > 1.5, or a PTT>60 seconds Assessment/Plan - Problem List (1) Severe sepsis Impression: This the patients sepsis symptoms are improving. Her creatinine is trending downward. Platelets are slowly improving. Therapy will be outlined below. (2) Diverticulitis Impression: Continue IV Rocephin. This is day number 2 of treatment. The patient previously was IV Zosyn. It looks like the blood culture had only intermediate sensitivity to Unasyn. The patient will need to complete a 14-day course of treatment but likely can be transitioned over to p.o. antibiotics at discharge. (3) E coli bacteremia Impression: Continue IV Rocephin. This is day #2 of appropriate antibiotic therapy. Repeat blood cultures were drawn yesterday and are negative to date. (4) Acute metabolic encephalopathy Impression: Secondary to sepsis. Resolved (5) Acute renal failure Impression: The patient had acute renal failure likely with ATN. Cannot rule out the patient was not hypotensive at home. Also received IV Toradol emergency room. The patient's creatinine peaked at 3.9. Currently today is 2.5. Slowly improving (6) Renal mass Impression: She will need outpatient urology follow-up. (7) Renal cyst Impression: Longstanding history of renal cysts. She used to follow with urology but has not seen them in quite some time. Due to the suspicious looking renal mass she will need urology follow-up at discharge. (8) Hydronephrosis of left kidney Impression: Plan as above. Urology follow-up at discharge. It was not felt that this mild hydronephrosis was contributing to her renal failure. (9) Diabetes Impression: The patient's med list indicated that she was on glipizide at home. She denies taking this. The patient was extremely hypoglycemic for the first few days. She was treated several times and has been on IV fluids with D5. Blood sugar se ems to be normalizing now. If she was taking glipizide it likely is washing out of her system. She has sliding scale coverage available as needed. (10) Hypertension Impression: Continue metoprolol tartrate 25 mg twice daily. Blood pressure is improving and currently systolic pressures are in the 150s. She takes hydrochlorothiazide and losartan at home. Will hold off on these due to her acute renal failure. She will have IV hydralazine available should she develop any significant hypertension. (11) Hyperlipidemia Impression: She will be placed back on her home dose of atorvastatin 40 mg daily (12) Grief reaction Impression: The patient declined grief counseling. She lost her earlier this year and lost her brother the day before admission. She does get tearful at times when discussing this. She may benefit from a low-dose depression medicine but does not want to start anything during this hospitalization. She should discuss this with her primary physician when she gets out of the hospital. (13) Hypomagnesemia Impression: Repleted and resolved (14) Lung cancer Impression: The patient had a robotic colon resection and has had no evidence of recurrence. She does have a suspicious looking renal mass that will need outpatient workup when she gets out of the hospital. (15) Thrombocytopenia Impression: Secondary to sepsis. Platelet level is up to 96 today and is slowly improving. (16) Hyponatremia Impression: Sodium level is 132 today. She will have a chemistry panel drawn in the morning. (17) Obesity (BMI 30-39.9) Impression: Weight loss is recommended through dietary modification and exercise as tolerated when she recuperates from this acute illness. (18) Weakness Impression: The patient is quite weak and debilitated after this acute illness. Will have physical therapy see her today. Also is having issues with constipation. Have asked the nursing staff to get her up to a chair today. Also needs to start moving around more. (19) Constipation Impression: The patient has not had a bowel movement since the first day of her hospitalization. She was not eating much for the first couple of days. However she has some abdominal distention and crampy abdominal pain. I do not think she needs an aggressive bowel regimen. I am going to asked the nursing staff to get her up to a chair today. Physical therapy should see her as well. The patient needs to get up and moving. Time spent: 35 minutes I have discussed this case with Dr. Benavidez. He is in agreement with the assessment and plan.
[2024-04-18] MEDS ORDERED: hydrALAZINE INJ 20 MG/ML VIAL IVP PRN (12:12)
[2024-04-18] MEDS: ATORVASTATIN 40 MG TABLET PO SCH (20:21)
[2024-04-19 06:06] LABS: BASOPHILS # (AUTO) 0.1 10^3/uL (0.0-0.1); BASOPHILS % (AUTO) 0.5 %; EOSINOPHILS # (AUTO) 0.2 10^3/uL (0.0-0.7); EOSINOPHILS % (AUTO) 2.4 %; HCT - HEMATOCRIT 35.9 % (37.0-47.0); HGB - HEMOGLOBIN 11.9 g/dL (12.0-16.0); LYMPHOCYTES # (AUTO) 0.9 10^3/uL (1.5-3.5); LYMPHOCYTES % (AUTO) 9.4 %; MEAN CORPUSCULAR HEMOGLOBIN 28.5 pg (27.0-31.0); MEAN CORPUSCULAR HGB CONC 33.1 g/dL (32.0-36.0); MEAN CORPUSCULAR VOLUME 85.9 fL (81.0-99.0); MEAN PLATELET VOLUME 12.5 fL (7.9-10.8); MONOCYTES # (AUTO) 1.5 10^3/uL (0.0-1.0); MONOCYTES % (AUTO) 15.2 %; NEUTROPHILS # (AUTO) 6.8 10^3/uL (1.5-6.6); NEUTROPHILS % (AUTO) 70.8 %; PLT - PLATELET COUNT 124 10^3/uL (130-450); RED BLOOD COUNT 4.18 10^6/uL (4.20-5.40); RED CELL DISTRIBUTION WIDTH 16.7 % (12.0-15.0); WHITE BLOOD COUNT 9.6 x10^3/uL (4.8-10.8)
[2024-04-19 06:20] LABS: CREATININE 2.1 mg/dL (0.6-1.3); CRP - C-REACTIVE PROTEIN 8.5 mg/dL (<0.5); MAGNESIUM 1.7 mg/dL (1.7-2.3); POTASSIUM 3.6 mmol/L (3.5-4.5)
--- NOTE | 2024-04-19 09:14 | PROVIDER PROGRESS NOTE ---
Assessment/Plan - Problem List (1) Acute diverticulitis Assessment/Plan: (1) Severe sepsis Impression: --Sepsis resolved. --Secondary to bacteremia due to diverticulitis. Continue IV ceftriaxone. (2) Diverticulitis Impression: --Uncomplicated. She is tolerating a diet. Continue IV ceftriaxone. (3) E coli bacteremia Impression: --Continue IV ceftriaxone. Will need a total of 14 days of antibiotic treatment. --Secondary to diverticulitis. (4) Acute metabolic encephalopathy Impression: Secondary to sepsis. Resolved (5) Acute renal failure Impression: --Cr trending downward. Will monitor for an additional day. (6) Renal mass Impression: She will need outpatient urology follow-up. (7) Renal cyst Impression: Longstanding history of renal cysts. She used to follow with urology but has not seen them in quite some time. Due to the suspicious looking renal mass she will need urology follow-up at discharge. (8) Hydronephrosis of left kidney Impression: Plan as above. Urology follow-up at discharge. It was not felt that this mild hydronephrosis was contributing to her renal failure. (9) Diabetes Impression: --Holding home diabetic medications due to hypoglycemia. We will hold her glipizide upon discharge. (10) Hypertension Impression: Continue metoprolol tartrate 25 mg twice daily. Blood pressure is improving and currently systolic pressures are in the 150s. She takes hydrochlorothiazide and losartan at home. Will hold off on these due to her acute renal failure. She will have IV hydralazine available should she develop any significant hypertension. (11) Hyperlipidemia Impression: She will be placed back on her home dose of atorvastatin 40 mg daily (12) Grief reaction Impression: The patient declined grief counseling. She lost her earlier this year and lost her brother the day before admission. She does get tearful at times when discussing this. She may benefit from a low-dose depression medicine but does not want to start anything during this hospitalization. She should discuss this with her primary physician when she gets out of the hospital. (13) Hypomagnesemia Impression: Repleted and resolved (14) Lung cancer Impression: The patient had a robotic colon resection and has had no evidence of recurrence. She does have a suspicious looking renal mass that will need outpatient workup when she gets out of the hospital. (15) Thrombocytopenia Impression: Secondary to sepsis. Platelet level is up to 96 today and is slowly improving. (16) Hyponatremia Impression: Sodium level is 132 today. She will have a chemistry panel drawn in the morning. (17) Obesity (BMI 30-39.9) Impression: Weight loss is recommended through dietary modification and exercise as tolerated when she recuperates from this acute illness. (18) Weakness Impression: The patient is quite weak and debilitated after this acute illness. Will have physical therapy see her today. Also is having issues with constipation. Have asked the nursing staff to get her up to a chair today. Also needs to start moving around more. (19) Constipation Impression: The patient has not had a bowel movement since the first day of her hospitalization. She was not eating much for the first couple of days. However she has some abdominal distention and crampy abdominal pain. I do not think she needs an aggressive bowel regimen. I am going to asked the nursing staff to get her up to a chair today. Physical therapy should see her as well. The patient needs to get up and moving. Dispo: Anticipate discharge in next 24-48 hours as renal function continues to improve. She will need imaging of her kidneys as an outpatient. Total of 14 days of antibiotics for her E. coli bacteremia. - Current Meds Current Meds: Current Medications Generic Name Dose Route Start Last Admin Trade Name Freq PRN Reason Stop Dose Admin Acetaminophen 650 mg 04/15/24 16:49 04/19/24 05:19 Acetaminophen 325 Mg Tablet PO 650 mg Q4HR PRN Administration Pain 1 to 4, or Fever Atorvastatin Calcium 40 mg 04/18/24 21:00 04/18/24 20:21 Atorvastatin 40 Mg Tablet PO 40 mg QPM TROY Administration Calcium Carbonate/Glycine 500 mg 04/17/24 21:00 04/19/24 08:20 Calcium Carbonate Chew 500 Mg Tablet PO 500 mg BID TROY Administration Heparin Sodium (Porcine) 5,000 unit 04/17/24 10:00 04/18/24 20:16 Heparin 5,000 Unit/Ml Vial SUBQ Not Given Q12H TROY Ceftriaxone Sodium 2 gm/ 100 mls @ 200 mls/hr 04/17/24 09:00 04/19/24 08:20 Sodium Chloride IV 200 mls/hr DAILY TROY Administration Insulin Human Lispro 1 - 5 unit 04/17/24 08:00 04/19/24 08:21 Insulin Lispro 300 Unit/3 Ml Pen SUBQ 1 unit 0800,1200,1700,2100 TROY Administration Protocol Levothyroxine Sodium 88 mcg 04/16/24 07:00 04/19/24 05:20 Levothyroxine 88 Mcg Tablet PO 88 mcg QDAC TROY Administration Metoprolol Tartrate 25 mg 04/15/24 21:00 04/19/24 08:20 Metoprolol Tartrate 25 Mg Tablet PO 25 mg BID TROY Administration Ondansetron HCl 4 mg 04/15/24 16:49 04/17/24 16:28 Ondansetron Odt 4 Mg Tablet TL 4 mg Q6HR PRN Administration Nausea / Vomiting Ondansetron HCl 4 mg 04/15/24 16:49 04/18/24 05:33 Ondansetron 4 Mg/2 Ml Vial IVP 4 mg Q6HR PRN Administration Nausea / Vomiting Oxycodone HCl 5 mg 04/15/24 16:49 04/16/24 16:16 Oxycodone 5 Mg Tablet PO 5 mg Q4HR PRN Administration Pain 5 to 7 Saccharomyces Boulardii 250 mg 04/15/24 17:00 04/19/24 08:20 Saccharomyces Boulardii 250 Mg Capsule PO 250 mg BIDWM TROY Administration Sodium Chloride 10 ml 04/15/24 16:49 04/19/24 05:14 Sodium Chloride Flush 0.9% 10 Ml Syringe IVP 10 ml PRN PRN Administration NEEDED PER PROVIDER ORDERS Sodium Chloride 10 ml 04/15/24 17:00 04/19/24 08:21 Sodium Chloride Flush 0.9% 10 Ml Syringe IVP 10 ml 0100,0900,1700 [facility] Administration - Lab Result Fish Bone Diagrams: 04/19/24 05:54 04/19/24 05:54 - Additional Planning My Orders: My Active Orders 04/20/24 05:00 CRP - C-REACTIVE PROTEIN [CHEM] DAILYLAB 04/21/24 05:00 CRP - C-REACTIVE PROTEIN [CHEM] DAILYLAB 04/22/24 05:00 CRP - C-REACTIVE PROTEIN [CHEM] DAILYLAB Subjective - Subjective Patient Reports: Feeling Better, Resting Comfortably, No Complaints Objective Vital Signs: Vital Signs - 24 hr 04/18/24 04/18/24 04/18/24 14:20 16:00 17:22 Temperature 36.7 C Heart Rate [ 68 74 Brachial] Heart Rate [ 76 Sitting] Heart Rate [ 84 Standing] Heart Rate [ 76 Supine] Respiratory 20 Rate Blood Pressure Blood Pressure 150/76 H [Left Brachial artery] Blood Pressure 168/80 H [Right Brachial artery] Blood Pressure 162/79 H [Sitting] Blood Pressure 155/82 H [Standing] Blood Pressure 150/79 H [Supine] O2 Saturation 94 04/18/24 04/18/24 04/19/24 20:22 23:40 08:00 Temperature 36.7 C 36.6 C Heart Rate [ 73 60 Brachial] Heart Rate [ Sitting] Heart Rate [ Standing] Heart Rate [ Supine] Respiratory 16 18 Rate Blood Pressure 117/74 Blood Pressure 147/70 H [Left Brachial artery] Blood Pressure 151/72 H [Right Brachial artery] Blood Pressure [Sitting] Blood Pressure [Standing] Blood Pressure [Supine] O2 Saturation 91 L 95 04/19/24 08:20 Temperature Heart Rate [ Brachial] Heart Rate [ Sitting] Heart Rate [ Standing] Heart Rate [ Supine] Respiratory Rate Blood Pressure 147/70 H Blood Pressure [Left Brachial artery] Blood Pressure [Right Brachial artery] Blood Pressure [Sitting] Blood Pressure [Standing] Blood Pressure [Supine] O2 Saturation Oxygen O2 Source Room air I&O (Last 24 Hrs): Intake and Output Totals x24h 04/17/24 04/18/24 04/19/24 23:59 23:59 23:59 Intake Total 2591.25 1177 670 Output Total 425 Balance 2166.25 1177 670 General: Alert, Oriented x3, Cooperative, No acute distress Cardiovascular: Regular rate, Normal S1, Normal S2, No murmurs Respiratory: Chest non-tender, No respiratory distress, Breath sounds nml Abdomen: Normal bowel sounds, Soft, No tenderness, No hepatospenomegaly, No masses - Results Results: Laboratory Results WBC 9.6 x10^3/uL (4.8-10.8) 04/19/24 05:54 RBC 4.18 10^6/uL (4.20-5.40) L 04/19/24 05:54 Hgb 11.9 g/dL (12.0-16.0) L 04/19/24 05:54 Hct 35.9 % (37.0-47.0) L 04/19/24 05:54 MCV 85.9 fL (81.0-99.0) 04/19/24 05:54 MCH 28.5 pg (27.0-31.0) 04/19/24 05:54 MCHC 33.1 g/dL (32.0-36.0) 04/19/24 05:54 RDW 16.7 % (12.0-15.0) H 04/19/24 05:54 Plt Count 124 10^3/uL (130-450) L 04/19/24 05:54 MPV 12.5 fL (7.9-10.8) H 04/19/24 05:54 Neut # (Auto) 6.8 10^3/uL (1.5-6.6) H 04/19/24 05:54 Lymph # (Auto) 0.9 10^3/uL (1.5-3.5) L 04/19/24 05:54 [place]verse # (Auto) 1.5 10^3/uL (0.0-1.0) H 04/19/24 05:54 Eos # (Auto) 0.2 10^3/uL (0.0-0.7) 04/19/24 05:54 Baso # (Auto) 0.1 10^3/uL (0.0-0.1) 04/19/24 05:54 Absolute Nucleated RBC 0.00 x10^3/uL 04/19/24 05:54 Total Counted 100 04/16/24 04:53 Band Neuts % (Manual) 17 % (0-10) H 04/16/24 04:53 Reactive Lymphs % (Man) 1 % 04/15/24 13:31 Abnorm Lymph % (Manual) 0 % 04/16/24 04:53 Metamyelocytes % 3 % (-0) H 04/15/24 13:31 Nucleated RBC % 0.0 /100WBC 04/19/24 05:54 Neutrophils # (Manual) 11.3 10^3/uL (1.5-6.6) H 04/16/24 04:53 Lymphocytes # (Manual) 0.5 10^3/uL (1.5-3.5) L 04/16/24 04:53 Monocytes # (Manual) 0.6 10^3/uL (0.0-1.0) 04/16/24 04:53 Eosinophils # (Manual) 0.1 10^3/uL (0-0.7) 04/16/24 04:53 Basophils # (Manual) 0.0 10^3/uL (0-0.1) 04/16/24 04:53 Differential Comment MANUAL DIFFERENTIAL 04/16/24 04:53 WBC Morphology 3+ VACUOLATION (NORMAL) 1+ DOHLE BODIES (NORMAL) 04/15/24 13:31 WBC Morphology 3+ VACUOLATION (NORMAL) 1+ DOHLE BODIES (NORMAL) 04/15/24 13:31 Platelet Estimate DECREASED (<130,000) (NORMAL) 04/16/24 04:53 RBC Morph Micro Appear NORMAL APPEARANCE (NORMAL) 04/16/24 04:53 Sodium 134 mmol/L (135-145) L 04/19/24 05:54 Potassium 3.6 mmol/L (3.5-4.5) 04/19/24 05:54 Chloride 97 mmol/L (101-111) L 04/19/24 05:54 Carbon Dioxide 30 mmol/L (21-32) 04/19/24 05:54 Anion Gap 7.0 (6-13) 04/19/24 05:54 BUN 22 mg/dL (6-20) H 04/19/24 05:54 Creatinine 2.1 mg/dL (0.6-1.3) H 04/19/24 05:54 Estimated GFR (MDRD) 23 (>89) L 04/19/24 05:54 Glucose 126 mg/dL (74-104) H 04/19/24 05:54 POC Whole Bld Glucose 155 mg/dL (70 - 100) H 04/19/24 07:47 Estimat Average Glucose 148 mg/dL (70-100) H 04/16/24 04:53 Hemoglobin A1c % 6.8 % (4.27-6.07) H 04/16/24 04:53 Lactic Acid 2.0 mmol/L (0.5-2.2) 04/16/24 08:16 Calcium 9.0 mg/dL (8.5-10.3) 04/19/24 05:54 Magnesium 1.7 mg/dL (1.7-2.3) 04/19/24 05:54 Total Bilirubin 1.1 mg/dL (0.2-1.0) H 04/15/24 13:31 AST 31 IU/L (10-42) 04/15/24 13:31 ALT 33 IU/L (10-60) 04/15/24 13:31 Alkaline Phosphatase 60 IU/L (42-121) 04/15/24 13:31 C-Reactive Protein 8.5 mg/dL (<0.5) H 04/19/24 05:54 Total Protein 6.1 g/dL (6.4-8.9) L 04/15/24 13:31 Albumin 3.6 g/dL (3.2-5.5) 04/15/24 13:31 Globulin 2.5 g/dL (2.1-4.2) 04/15/24 13:31 Albumin/Globulin Ratio 1.4 (1.0-2.2) 04/15/24 13:31 Lipase 11 U/L (11-82) 04/15/24 13:31 Procalcitonin Immunoas 9.02 ng/mL (<0.5) H* 04/18/24 05:15 Urine Color YELLOW 04/15/24 16:15 Urine Clarity CLOUDY (CLEAR) 04/15/24 16:15 Urine pH 5.5 PH (5.0-7.5) 04/15/24 16:15 Ur Specific [place] >=1.030 (1.002-1.030) H 04/15/24 16:15 Urine Protein >=300 mg/dL (NEGATIVE) H 04/15/24 16:15 Urine Glucose (UA) NEGATIVE mg/dL (NEGATIVE) 04/15/24 16:15 Urine Ketones TRACE mg/dL (NEGATIVE) 04/15/24 16:15 Urine Occult Blood MODERATE (NEGATIVE) H 04/15/24 16:15 Urine Nitrite NEGATIVE (NEGATIVE) 04/15/24 16:15 Urine Bilirubin SMALL (NEGATIVE) H 04/15/24 16:15 Urine Urobilinogen 0.2 (NORMAL) E.U./dL (NORMAL) 04/15/24 16:15 Ur Leukocyte Esterase NEGATIVE (NEGATIVE) 04/15/24 16:15 Urine RBC 6-10 /HPF (0-5) H 04/15/24 16:15 Urine WBC 0-3 /HPF (0-5) 04/15/24 16:15 Ur Squamous Epith Cells RARE Squamous (<= Few) 04/15/24 16:15 Amorphous Sediment Moderate /LPF 04/15/24 16:15 Urine Bacteria Rare /HPF (None Seen) 04/15/24 16:15 Ur Microscopic Review INDICATED 04/15/24 16:15 Urine Culture Comments NOT INDICATED 04/15/24 16:15 Nasal Adenovirus (PCR) NOT DETECTED 04/15/24 16:35 Nasal B. parapertussis DNA (PCR) NOT DETECTED 04/15/24 16:35 Nasal Coronavir 229E PCR NOT DETECTED 04/15/24 16:35 Nasal Coronavir HKU1 PCR NOT DETECTED 04/15/24 16:35 Nasal Coronavir NL63 PCR NOT DETECTED 04/15/24 16:35 Nasal Coronavir OC43 PCR NOT DETECTED 04/15/24 16:35 Nasal Enterovir/Rhinovir PCR NOT DETECTED 04/15/24 16:35 Nasal Influenza B PCR NOT DETECTED 04/15/24 16:35 Nasal Influenza A PCR NOT DETECTED 04/15/24 16:35 Nasal Parainfluen 1 PCR NOT DETECTED 04/15/24 16:35 Nasal Parainfluen 2 PCR NOT DETECTED 04/15/24 16:35 Nasal Parainfluen 3 PCR NOT DETECTED 04/15/24 16:35 Nasal Parainfluen 4 PCR NOT DETECTED 04/15/24 16:35 Nasal RSV (PCR) NOT DETECTED 04/15/24 16:35 Nasal B.pertussis DNA PCR NOT DETECTED 04/15/24 16:35 Nasal C.pneumoniae (PCR) NOT DETECTED 04/15/24 16:35 Jonn Human Metapneumo PCR NOT DETECTED 04/15/24 16:35 Nasal M.pneumoniae (PCR) NOT DETECTED 04/15/24 16:35 Nasal SARS-CoV-2 (PCR) NOT DETECTED 04/15/24 16:35 Sepsis Event Note (H) - Evaluation Current Stage of Sepsis: Severe sepsis Possible source of Sepsis: positive: GI tract/intra-abdominal - Sepsis Criteria Sepsis Criteria: Recorded Respiratory Rate greater than 20, WBC count greater than 10% bands, WBC count greater than 12,000 or less than 4000, OUTSIDE SALES ACCOUNT REPRESENTATIVE: altered consciousness (unrelated to primary neuro pathology), SBP less than 90 mmHg, Metabolic: lactate > 2 mmol/L, Hematologic: platelets < 100,000; INR > 1.5, or a PTT>60 seconds
[2024-04-19] MEDS: MULTIVITAMIN W/MINERALS TABLET PO SCH (09:50)
[2024-04-20 05:14] LABS: BASOPHILS # (AUTO) 0.1 10^3/uL (0.0-0.1); BASOPHILS % (AUTO) 0.6 %; EOSINOPHILS # (AUTO) 0.2 10^3/uL (0.0-0.7); EOSINOPHILS % (AUTO) 2.5 %; HCT - HEMATOCRIT 31.9 % (37.0-47.0); HGB - HEMOGLOBIN 10.5 g/dL (12.0-16.0); LYMPHOCYTES # (AUTO) 1.1 10^3/uL (1.5-3.5); LYMPHOCYTES % (AUTO) 12.8 %; MEAN CORPUSCULAR HEMOGLOBIN 28.3 pg (27.0-31.0); MEAN CORPUSCULAR HGB CONC 32.9 g/dL (32.0-36.0); MEAN PLATELET VOLUME 11.9 fL (7.9-10.8); MONOCYTES # (AUTO) 1.6 10^3/uL (0.0-1.0); MONOCYTES % (AUTO) 17.4 %; NEUTROPHILS # (AUTO) 5.6 10^3/uL (1.5-6.6); NEUTROPHILS % (AUTO) 63.2 %; PLT - PLATELET COUNT 160 10^3/uL (130-450); RED BLOOD COUNT 3.71 10^6/uL (4.20-5.40); RED CELL DISTRIBUTION WIDTH 16.3 % (12.0-15.0); WHITE BLOOD COUNT 8.9 x10^3/uL (4.8-10.8)
[2024-04-20 05:27] LABS: CALCIUM 8.8 mg/dL (8.5-10.3); CREATININE 1.9 mg/dL (0.6-1.3); CRP - C-REACTIVE PROTEIN 6.9 mg/dL (<0.5); MAGNESIUM 1.6 mg/dL (1.7-2.3); POTASSIUM 3.5 mmol/L (3.5-4.5)
[2024-04-20 06:22] LABS: DIFFERENTIAL COMMENT MANUAL=AUTO DIFF; PLATELET ESTIMATE, MANUAL NORMAL (130-450,000) (NORMAL); PLATELET MORPHOLOGY RARE GIANT PLATELETS (NORMAL)
[2024-04-20 08:13] VITALS: BP 158/73; O2SAT 94
--- NOTE | 2024-04-20 08:21 | Discharge Plan ---
Discharge Plan Problem Reviewed?: Yes Disposition: Home, Self Care Condition: Good Prescriptions: Cefdinir 300 mg PO BID 10 Days #20 cap Diet: Diabetic Activity Restrictions: Activity as Tolerated Plan of Treatment: Please follow up with your PCP for the following important issues: 1. You will need a CT renal protocol to evaluate for a suspicious area on the left kidney. 2. All of your diabetic medications have been held on discharge due to episodes of low blood sugars in the hospital. 3. Follow up on your improving kidney function with a BMP. 4. Completion of 10 days of oral antibiotics for your E. coli blood infection. 5. A referral to GI/General surgery for a colonoscopy after your diverticulitis has cleared up. No Smoking: If you smoke, Please STOP! Call for help.
--- NOTE | 2024-04-20 11:01 | DISCHARGE SUMMARY ---
Discharge Summary Admit Date: 05/16/24 Discharge Date: 04/20/24 Discharging Provider: Orlin Benavidez Primary Care Provider: Jb Cortez Code Status: Attempt Resuscitation Condition at Discharge: Good Discharge Disposition: 01 Home, Self Care - HPI History of Present Illness: The patient is a very pleasant 78-year-old female. She was brought to the emergency room with altered mental status and abdominal pain. After treatment in the emergency room she is doing much better and answers questions appropriately. She tells me that she lost her in November of this year and she lost her brother yesterday. She said that for the past several months she has been extremely depressed and for the past 2 or 3 days has been not eating or drinking well. Yesterday her brother and she developed severe nausea vomiting and diarrhea. She was having left lower quadrant abdominal pain. She thought it might be due to her grief reaction. She admits that she has not been drinking enough water. Today she became quite weak. She was shaky. She was speaking to a family member in [place] on the phone and they felt that she had slurred speech and was confused. They called her other son to bring her to the emergency room. Workup in the emergency room revealed white blood cell count of 20.3, hemoglobin of 12.1, platelet level of 96. Sodium level was 133, potassium 3.5, creatinine was 3.4 with a baseline of 1.2. BUN was elevated at 46. Glucose was 130. Magnesium level was 1.3. Bilirubin was 1.1, the rest of her liver panel was unremarkable. She had a CT scan of the brain which revealed no evidence of an acute CVA. Noncontrasted CT scan of the abdomen and pelvis revealed uncomplicated diverticulitis in the mid descending colon. She was noted to have mild left hydronephrosis with bilateral simple cysts. There was abnormal contour of the superior pole of the left kidney and a renal mass is suspected but they could not fully evaluate due to lack of IV contrast. In the emergency room she received 1 L fluid bolus. She received a dose of IV Toradol and was referred for admission. The patient was somewhat tearful at times when discussing the of her brother yesterday. She has not spoken to her primary care provider about getting on any sort of depression medication at this point. She has not had any fever or chills. No chest pain or heart palpitations. She has had nausea vomiting and diarrhea. Her last episode of diarrhea was this morning. She has mild abdominal pain in the left lower quadrant. She has no dysuria and is not complaining of any urinary frequency. We discussed her CODE STATUS. She would like to be a full code and would want intubation and chest compressions. She would like her daughter Sobia Cagle and her son Cody Benitez to be her surrogate decision makers. - HOSPITAL COURSE Hospital Course: Patient is a 78-year-old female who presented to the ED due to complaints of abdominal pain. A CT abdomen/pelvis was performed which revealed evidence of uncomplicated diverticulitis. Patient was admitted and started on IV Zosyn. Her blood culture returned positive for E. coli and she was transition to IV ceftriaxone. Her symptoms improved significantly and she was able to tolerate a regular diet. Of note, patient also had an elevated creatinine which improved with antibiotics and IV fluid administration. On day of discharge her creatinine was 1.9. She was subsequently discharged after her white blood cell count normalized. She was discharged on oral cefdinir to complete 14 total days of antibiotics for her E. coli bacteremia secondary to acute diverticulitis. She will need follow-up on several issues. She will need a CT renal protocol to evaluate a suspicious area on her left kidney. Furthermore she was having hypoglycemic episodes and her diabetic medications were held in the hospital. She may also require a referral to general surgery for colonoscopy as a follow- up for her diverticulitis. Furthermore she requires a BMP at her next outpatient visit to evaluate her improving kidney function. - ALLERGIES Allergies/Adverse Reactions: Allergies Allergy/AdvReac Type Severity Reaction Status Date / Time bupropion HCl * Allergy Unknown Verified 04/15/24 13:19 [From Wellbutrin] - MEDICATIONS Home Medications: Ambulatory Orders Medication Instructions Recorded Confirmed Levothyroxine Sodium [Tirosint] 88 mcg PO DAILY 01/12/14 04/16/24 Losartan Potassium [Cozaar] 50 mg PO DAILY 01/12/14 04/16/24 Metoprolol Tartrate 50 mg PO DAILY 01/12/14 04/16/24 Atorvastatin [Lipitor] 40 mg PO DAILY 04/16/24 04/16/24 Prazosin [Minipress] 1 mg PO DAILY 04/16/24 04/16/24 hydroCHLOROthiazide [Hydrodiuril] 12.5 mg PO DAILY 04/16/24 04/16/24 Cefdinir 300 mg PO BID 10 Days #20 cap 04/20/24 - PHYSICAL EXAM AT DISCHARGE General Appearance: positive: No acute distress, Alert, Mild distress Respiratory: positive: Chest non-tender, No respiratory distress, Breath sounds nml Cardiovascular: positive: Regular rate & rhythm, No murmur, No gallop Abdomen: positive: Non-tender, No organomegaly, Nml bowel sounds, No distention Extremities: positive: Non-tender, No pedal edema - LABS Result Diagrams: 04/20/24 04:53 04/20/24 04:53 - SEPSIS Current Stage of Sepsis: Severe sepsis Possible source of Sepsis: GI tract/intra-abdominal Sepsis Criteria: Recorded Respiratory Rate greater than 20, WBC count greater than 10% bands, WBC count greater than 12,000 or less than 4000, SIDE SPLITTER: altered consciousness (unrelated to primary neuro pathology), SBP less than 90 mmHg, Metabolic: lactate > 2 mmol/L, Hematologic: platelets < 100,000; INR > 1.5, or a PTT>60 seconds - FOLLOW UP Follow Up: Follow up with PCP in 3-5 days. - TIME SPENT Time Spent in Discharge (Minutes): 30
== END 2024-04-20 10:15 | disposition home or self-care (01) | DRG 871 ==
LOC: ED 13:01 → MS2 16:48
PROVIDERS: ADMIT Physician Assistant; ATTEND Family Medicine
DX: A41.51 Sepsis due to Escherichia coli [E. coli] (principal); G93.41 Metabolic encephalopathy; K57.32 Diverticulitis of large intestine without perforation or abscess without bleeding; N13.30 Unspecified hydronephrosis; D72.829 Elevated white blood cell count, unspecified; N17.9 Acute kidney failure, unspecified; E86.0 Dehydration; R26.2 Difficulty in walking, not elsewhere classified; R47.81 Slurred speech; E87.1 Hypo-osmolality and hyponatremia; R65.20 Severe sepsis without septic shock; R63.8 Other symptoms and signs concerning food and fluid intake; E11.9 Type 2 diabetes mellitus without complications; I95.9 Hypotension, unspecified; Z11.52 Encounter for screening for COVID-19; N28.1 Cyst of kidney, acquired; R11.2 Nausea with vomiting, unspecified; I10 Essential (primary) hypertension; E78.00 Pure hypercholesterolemia, unspecified; D69.59 Other secondary thrombocytopenia; N28.89 Other specified disorders of kidney and ureter; F43.21 Adjustment disorder with depressed mood; E66.9 Obesity, unspecified; E11.649 Type 2 diabetes mellitus with hypoglycemia without coma; E83.42 Hypomagnesemia; R53.1 Weakness; K59.00 Constipation, unspecified; Z63.4 Disappearance and death of family member; Z68.34 Body mass index [BMI] 34.0-34.9, adult; Z79.84 Long term (current) use of oral hypoglycemic drugs; Z79.890 Hormone replacement therapy; Z79.899 Other long term (current) drug therapy; Z85.118 Personal history of other malignant neoplasm of bronchus and lung; Z90.710 Acquired absence of both cervix and uterus
CPT/HCPCS: 36415; 70450; 71045; 74019; 74176; 80048; 80053; 81001; 83036; 83605; 83690; 83735; 84145; 85025; 86140; 87040; 87154; 87181; 87633; 96361; 96374; 96375; 97161; 97165; 97530; 99285; A9270; P9612; Q0162; 51701; 81003; 87086

== ENCOUNTER 2024-04-26 08:31 | Outpatient (CLI) | payer MEDICARE ==
[2024-04-26 08:54] LABS: BASOPHILS # (AUTO) 0.1 10^3/uL (0.0-0.1); BASOPHILS % (AUTO) 0.7 %; EOSINOPHILS # (AUTO) 0.1 10^3/uL (0.0-0.7); EOSINOPHILS % (AUTO) 1.3 %; LYMPHOCYTES # (AUTO) 1.5 10^3/uL (1.5-3.5); LYMPHOCYTES % (AUTO) 14.7 %; MEAN CORPUSCULAR HGB CONC 31.4 g/dL (32.0-36.0); MEAN CORPUSCULAR VOLUME 89.1 fL (81.0-99.0); MEAN PLATELET VOLUME 10.6 fL (7.9-10.8); MONOCYTES # (AUTO) 0.9 10^3/uL (0.0-1.0); MONOCYTES % (AUTO) 8.7 %; NEUTROPHILS # (AUTO) 7.7 10^3/uL (1.5-6.6); NEUTROPHILS % (AUTO) 73.7 %; PLT - PLATELET COUNT 335 10^3/uL (130-450); RED BLOOD COUNT 3.93 10^6/uL (4.20-5.40); RED CELL DISTRIBUTION WIDTH 16.1 % (12.0-15.0); WHITE BLOOD COUNT 10.4 x10^3/uL (4.8-10.8)
[2024-04-26 09:09] LABS: ALBUMIN 3.7 g/dL (3.2-5.5); ALBUMIN/GLOBULIN RATIO 1.2 (1.0-2.2); ALKALINE PHOSPHATASE 122 IU/L (42-121); ALT ALANINE AMINOTRANSFERASE 63 IU/L (10-60); AST ASPARTATE AMINOTRANSFERASE 28 IU/L (10-42); BILIRUBIN,TOTAL 0.8 mg/dL (0.2-1.0); BUN - BLOOD UREA NITROGEN 25 mg/dL (6-20); CALCIUM 9.3 mg/dL (8.5-10.3); CARBON DIOXIDE - CO2 27 mmol/L (21-32); CHLORIDE 101 mmol/L (101-111); CHOL/HDL RATIO 4.6 (<4.4); CHOLESTEROL 101 mg/dL; CREATININE 1.8 mg/dL (0.6-1.3); GFR - MDRD 27 (>89); GLUCOSE 164 mg/dL (74-104); HDL CHOLESTEROL 22 mg/dL; LDL CHOLESTEROL,CALCULATED 55 mg/dL; LDL/HDL RATIO 2.5 (<4.4); POTASSIUM 4.3 mmol/L (3.5-4.5); SODIUM 136 mmol/L (135-145); TOTAL PROTEIN 6.8 g/dL (6.4-8.9); TRIGLYCERIDES 121 mg/dL (48-352); VLDL CHOLESTEROL 24 mg/dL
[2024-04-26 09:18] LABS: ESTIMATED AVERAGE GLUCOSE 143 mg/dL (70-100); HEMOGLOBIN A1c% 6.6 % (4.27-6.07)
[2024-04-26 09:23] LABS: THYROID STIMULATING HORMONE 3.53 uIU/mL (0.34-5.60)
== END 2024-04-26 08:32 | disposition home or self-care (01) ==
LOC: LAB 08:31
PROVIDERS: ATTEND Family Medicine
DX: I12.9 Hypertensive chronic kidney disease with stage 1 through stage 4 chronic kidney disease, or unspecified chronic kidney disease (principal); E11.22 Type 2 diabetes mellitus with diabetic chronic kidney disease; N18.31 Chronic kidney disease, stage 3a; C34.31 Malignant neoplasm of lower lobe, right bronchus or lung; J44.9 Chronic obstructive pulmonary disease, unspecified; E78.5 Hyperlipidemia, unspecified; E03.9 Hypothyroidism, unspecified
CPT/HCPCS: 36415; 80053; 80061; 83036; 83721; 84443; 85025

== ENCOUNTER 2024-06-17 12:25 | Outpatient (CLI) | payer MEDICARE ==
--- NOTE | 2024-06-18 10:17 | Mammography Report ---
BILATERAL DIGITAL DIAGNOSTIC MAMMOGRAM 3D/2D WITH SPOT COMPRESSION: 06/17/2024 CLINICAL: Palpable left breast lump. Due for bilateral exam. Comparison is made to exams dated: 08/03/2021 mammogram, 08/19/2019 mammogram, 12/25/2017 mammogram, 12/29 mammogram, and 01/06/2015 mammogram - [facility]. Both breasts are heterogeneously dense, which may obscure small masses (category c / 51-75% glandular tissue). There is an irregular mass with a spiculated margin in the left breast at 11 o'clock posterior depth. This correlates as palpated. No other significant masses, calcifications, or other findings are seen in either breast. IMPRESSION: INCOMPLETE: NEEDS ADDITIONAL IMAGING EVALUATION The irregular mass in the left breast is indeterminate. An ultrasound is recommended. Based on the Tyrer Cuzick model (a risk assessment model) the patient's lifetime risk is 1.6% and her 10 year risk is 0.0%. According to the ACR, ACS, and NCCN guidelines, an annual breast MRI exam vivienne g with mammogram is recommended if the patient's lifetime risk is 20% or greater. This exam was interpreted at Station ID: [id number]. NOTE: For mammograms, a report in lay terms will be sent to the patient. Approximately 15% of breast malignancies will not be visualized mammographically. In the management of a palpable breast mass, a negative mammogram must not discourage biopsy of a clinically suspicious lesion. Electronically Signed By: Darrian Wyatt M.D. lc/penrad:06/17/2024 13:51:00 ACR BI-RADS Category 0: Incomplete 3340F PARENCHYMAL PATTERN: (D) - The breast(s) demonstrate(s) heterogeneously dense fibroglandular parrajan trejo. BI-RADS CATEGORY: (0) - 0 Ultrasound [id number] Immediate follow-up LATERALITY: (B)
--- NOTE | 2024-06-18 10:17 | Ultrasound Report ---
LIMITED ULTRASOUND OF LEFT BREAST: 06/17/2024 CLINICAL: Palpable left breast lump. Comparison is made to exams dated: 08/03/2021 ultrasound, 08/03/2021 mammogram, and 08/19/2019 mammogra - [facility]. Color flow ultrasound of the left breast 12 o'clock region was performed. Arvizu scale images of the real-time examination were reviewed. There is a 1.5 cm x 2.4 cm x 1.6 cm irregular mass with a spiculated margin in the left breast at 12 o'clock posterior depth 7 cm from the nipple. This correlates as palpated and with mammography findi ngs. There also is a 0.9 cm x 0.6 cm rounded lymph node in the left axilla IMPRESSION: HIGHLY SUGGESTIVE OF MALIGNANCY The 1.5 cm x 2.4 cm x 1.6 cm irregular mass in the left breast at 12 o'clock posterior depth is highl y suggestive of malignancy. An ultrasound guided biopsy is recommended. The 0.9 cm x 0.6 cm rounded lymph node in the left axilla is suspicious of malignancy. An ultrasound guided biopsy is recommended. This exam was interpreted at Station ID: [id number]. Electronically Signed By: Darrian Wyatt M.D. lc/:06/17/2024 13:53:07 Ultrasound BI-RADS: 5 Highly suggestive of malignancy BI-RADS CATEGORY: (5) - 5 Biopsy follow-up [id number] Immediate follow-up LATERALITY: (B)
== END 2024-06-17 12:26 | disposition home or self-care (01) ==
LOC: DI 12:25
PROVIDERS: ATTEND Physician Assistant Medical
DX: N63.25 Unspecified lump in the left breast, overlapping quadrants (principal); R92.8 Other abnormal and inconclusive findings on diagnostic imaging of breast; R92.333 Mammographic heterogeneous density, bilateral breasts

== ENCOUNTER 2024-07-04 09:43 | Outpatient (CLI) | payer MEDICARE ==
[~2024-07-04 09:43] MED LIST: LIDOCAINE 1%-EPI 1:100000 20 ML MDV ONE; LIDOCAINE-MPF 1% 5 ML VIAL ONE
[2024-07-04] MEDS: LIDOCAINE 1%-EPI 1:100000 20 ML MDV SUBQ ONE (13:12)
[2024-07-04] MEDS: LIDOCAINE-MPF 1% 5 ML VIAL TD ONE (13:13)
--- NOTE | 2024-07-10 10:55 | Ultrasound Report ---
MULTIPLE ULTRASOUND GUIDED BIOPSIES LEFT BREAST WITH MARKING DEVICES INSERTED: 07/04/2024 CLINICAL: Left breast mass. PATIENT CONSENT: Risks (minor bleeding, infection, vasovagal reaction and repeat procedure), benefits and alternatives were explained to the patient and written informed consent was obtained. Correlation is made to exams dated: 06/17/2024 ultrasound, 06/17/2024 mammogram, 08/03/2021 ultrasound, and 08/03/2021 mammogram - [facility]. An ultrasound guided biopsy using real-time ultrasound was performed for the mass located in the left breast at 12 o'clock, 7 cm from the nipple. The skin was prepped in the usual manner. Local anesth etic was administered to the access site. The abnormality was approached from the lateral aspect. A 14 gauge biopsy needle was placed adjacent to the abnormality under ultrasound guidance. Once the n eedle was documented to be in the correct location, nine specimens were obtained using the FileTrek opsy device. A hydromark clip was inserted into the biopsy cavity. A sterile dressing was applied t o the access site. Post procedure imaging demonstrates the location device at the targeted area. Th e specimens were sent to the laboratory for pathological analysis. A second ultrasound guided biopsy using real-time ultrasound was performed for the lymph node located in the left axilla. The skin was prepped in the usual manner. Local anesthetic was administered to the access site. The abnormality was approached from the lateral aspect. A 20 gauge biopsy needle was placed adjacent to the abnormality under ultrasound guidance. Once the needle was documented to be in the correct location, six specimens were obtained using the Telik biopsy device. A hydr omark clip was inserted into the biopsy cavity. A sterile dressing was applied to the access site. The specimens were sent to the laboratory for pathological analysis. Biopsy procedures were performed by Dr. Sawyer on 07/04/2024. IMPRESSION: ULTRASOUND GUIDED BIOPSY MALIGNANT 1) Successful ultrasound guided biopsy of the left breast mass at 12 o'clock posterior depth 7 cm fro m the nipple performed by Dr. Sawyer. 2) Successful ultrasound guided biopsy of the left axillary lymph node performed by Dr. Sawyer. Waiting for pathology results. A final report will be issued when these become available. This exam was interpreted at Station ID: [id number]. Addendum Ultrasound guided biopsy of the mass in the left breast at 12 o'clock posterior depth 7 cm from the n ipple was successful. Pathology indicates malignant invasive lobular carcinoma ([place]). Pathology resu lts are concordant with imaging findings. Ultrasound guided biopsy of the lymph node in the left axillary tail was successful. Pathology indic ates malignant invasive lobular carcinoma ([place]), but no evidence for lymph node tissue. This may repre sent a second focus of primary breast cancer versus complete replacement of lymph node. Pathology re sults are concordant with imaging findings. A surgical/oncologic consultation is recommended. This exam was interpreted at Station ID: [id number]. Liv Lowery M.D., Ph.D. Andrew Luis M.D. ,aty/:07/09/2024 18:56:26 BI-RADS CATEGORY: () - Unspecified - other recall n/a LATERALITY: (B)
--- NOTE | 2024-07-10 13:26 | Mammography Report ---
UNILATERAL LEFT DIGITAL DIAGNOSTIC MAMMOGRAM WITH MEDIOLATERAL OBLIQUE - LEFT BREAST POST-PROCEDURE I MAGING FOR MARKER PLACEMENT: 07/04/2024 CLINICAL: Post left breast ultrasound biopsy clip placement imaging. Comparison is made to exams dated: 06/17/2024 mammogram, 08/03/2021 mammogram, 08/19/2019 mammogram, 12/25/2017 mammogram, 12/29/2015 mammogram, and 01/06/2015 mammogram - [facility]. The left breast is heterogeneously dense, which may obscure small masses (category c / 51-75% glandul ar tissue). Post biopsy mammogram demonstrates hydromark biopsy clip centered within the mass. Please see separat lori dictated ultrasound guided biopsy report for additional details and pathology. IMPRESSION: POST PROCEDURE MAMMOGRAM FOR MARKER PLACEMENT Post biopsy mammogram demonstrates hydromark biopsy clip centered within the mass. Please see separat lori dictated ultrasound guided biopsy report for additional details and pathology. Based on the Tyrer Cuzick model (a risk assessment model) the patient's lifetime risk is 1.6% and her 10 year risk is 0.0%. According to the ACR, ACS, and NCCN guidelines, an annual breast MRI exam vivienne g with mammogram is recommended if the patient's lifetime risk is 20% or greater. This exam was interpreted at Station ID: [id number]. NOTE: For mammograms, a report in lay terms will be sent to the patient. Approximately 15% of breast malignancies will not be visualized mammographically. In the management of a palpable breast mass, a negative mammogram must not discourage biopsy of a clinically suspicious lesion. Electronically Signed By: Liv Lowery M.D., Ph.D. eb/:07/09/2024 12:23:58 ACR BI-RADS Category Post-procedure mammogram for marker placement PARENCHYMAL PATTERN: (D) - The breast(s) demonstrate(s) heterogeneously dense fibroglandular parrajan trejo. BI-RADS CATEGORY: () - Unspecified - other recall n/a LATERALITY: (B)
== END 2024-07-04 09:44 | disposition home or self-care (01) ==
LOC: DI 09:43
PROVIDERS: ATTEND Physician Assistant Medical
DX: C50.812 Malignant neoplasm of overlapping sites of left female breast (principal); Z17.0 Estrogen receptor positive status [ER+]
CPT/HCPCS: 19083

== ENCOUNTER 2024-08-09 07:54 | Day surgery (SDC) | payer MEDICARE ==
[~2024-08-09 07:54] MED LIST changes: -LIDOCAINE 1%-EPI 1:100000 20 ML MDV ONE; -LIDOCAINE-MPF 1% 5 ML VIAL ONE; +ceFAZolin 2 GM VIAL ONE
[2024-08-09] MEDS: LACTATED RINGERS 1,000 ML IV ONE ×2 (08:27→11:17)
[2024-08-09] MEDS ORDERED: fentaNYL 100 MCG/2 ML VIAL ONE (08:44)
[2024-08-09] MEDS ORDERED: LIDOCAINE-PF 2% 10 ML AMP SUBQ ONE (08:44)
[2024-08-09] MEDS ORDERED: PROPOFOL 200 MG/20 ML VIAL IVP ONE (08:44)
[2024-08-09] MEDS ORDERED: ONDANSETRON 4 MG/2 ML VIAL ONE (08:45)
--- NOTE | 2024-08-09 09:07 | ANESTHESIA ---
Pre-Anesthesia VS, & Labs - Diagnosis breast cancer - Procedure port placement Vital Signs: Temp Pulse Resp BP Pulse Ox O2 Flow Rate 36.5 C 64 17 176/100 H 99 08/09/24 08:25 08/09/24 08:25 08/09/24 08:25 08/09/24 08:25 08/09/24 08:25 Height: 5 ft 4 in Weight (kg): 89 kg Body Mass Index: 33.7 BMI Classification: Obese - NPO >8 hours - Is Patient ?: No - Lab Results Current Lab Results: Laboratory Tests 08/09/24 08:25: POC Whole Bld Glucose 145 H Home Medications and Allergies Home Medications: Ambulatory Orders Black Seed Oil 1 tsp PO DAILY 08/05/24 Calcium Carb/Mag Ox/Zinc Sulf [Cze-Dbl-Xkzb 334-134-5 mg Tab] 1 each PO DAILY 08/05/24 Levothyroxine Sodium [Tirosint] 88 mcg PO DAILY 01/12/14 Losartan Potassium [Cozaar] 50 mg PO DAILY 01/12/14 Metoprolol Tartrate 50 mg PO DAILY 01/12/14 Atorvastatin [Lipitor] 40 mg PO DAILY 04/16/24 Prazosin [Minipress] 1 mg PO QPM 04/16/24 hydroCHLOROthiazide [Hydrodiuril] 12.5 mg PO DAILY 04/16/24 Metformin HCl 500 mg PO DAILY 07/24/24 glipiZIDE [Glucotrol] 5 mg PO DAILY 07/24/24 Black Seed Oil 1 tsp PO DAILY 08/05/24 Calcium Carb/Mag Ox/Zinc Sulf [Mix-Cxl-Preg 334-134-5 mg Tab] 1 each PO DAILY 08/05/24 Allergies/Adverse Reactions: Allergies Allergy/AdvReac Type Severity Reaction Status Date / Time bupropion HCl * AdvReac Itching Verified 07/24/24 14:32 [From Wellbutrin] Latex, Natural Rubber AdvReac Rash Verified 07/24/24 14:32 Anes History & Medical History - Anesthetic History Anesthesia Complications: reports: No previous complications - Medical History Cardiovascular: reports: Hypertension Pulmonary: reports: Pneumonia, Other Gastrointestinal: reports: Diverticulitis Urinary: reports: Incontinence, Kidney stones Neuro: reports: None Musculoskeletal: reports: Osteoarthritis Endocrine/Autoimmune: reports: Type 2 diabetes, HyPOthyroidism Blood Disorders: reports: None Skin: reports: None Smoking Status: Former smoker Psychosocial: reports: Alcohol (glass a wine a week) History of Cancer?: Yes - Surgical History General: reports: Appendectomy, Colonoscopy, Other Eyes Ears Nose Throat (EENT): reports: Cataracts Cardiothoracic: reports: Lobectomy Urologic: reports: Ureterolithotomy (stones) Gynecologic: reports: Hysterectomy, Oophrectomy Orthopedic: reports: Other Exam General: Alert, Oriented x3 Dental: WNL Mouth Opening: Greater than 4 Fingerbreadths Neck Mobility: Normal Mallampati classification: II Thyromental Distance: greater than 6 cm Respiratory: Lungs clear Cardiovascular: Regular rate, Normal S1, Normal S2 Plan Anesthesia Type: General, Total IV Consent for Procedure(s) Verified and Reviewed: Yes Code Status: Attempt Resuscitation ASA classification: 3-Severe systemic disease Is this case an emergency?: No
[2024-08-09] MEDS ORDERED: PROPOFOL 500 MG/50 ML 0 MG/0 ML VIAL ONE (09:26)
[2024-08-09] MEDS ORDERED: BUPIVACAINE 0.5% PF 10 ML VIAL ONE (09:46)
[2024-08-09] MEDS ORDERED: LIDOCAINE 1%-EPI 1:100000 20 ML MDV ONE (09:46)
[2024-08-09] MEDS: LIDOCAINE 1%-EPI 1:100000 20 ML MDV SUBQ ONE ×2 (10:41)
[2024-08-09] MEDS: BUPIVACAINE 0.5% PF 10 ML VIAL SUBQ ONE ×2 (10:41)
[2024-08-09] MEDS ORDERED: ATROPINE ABBOJECT 1 MG/10 ML SYRINGE IVP PRN (11:01)
[2024-08-09] MEDS ORDERED: METOCLOPRAMIDE 10 MG/2 ML VIAL IVP PRN (11:01)
[2024-08-09] MEDS ORDERED: ePHEDrine 50 MG/ML VIAL IVP PRN (11:01)
[2024-08-09] MEDS ORDERED: fentaNYL 100 MCG/2 ML VIAL IVP PRN (11:01)
[2024-08-09] MEDS ORDERED: HYDROmorphone 0.5 MG/0.5 ML SYRINGE IVP PRN (11:01)
[2024-08-09] MEDS ORDERED: ONDANSETRON 4 MG/2 ML VIAL IVP PRN (11:01)
[2024-08-09] MEDS ORDERED: MORPHINE 2 MG/ML CARPUJECT IVP PRN (11:01)
[2024-08-09] MEDS ORDERED: NALOXONE 0.4 MG/ML VIAL IVP PRN (11:01)
--- NOTE | 2024-08-09 11:19 | OPERATIVE REPORT ---
Operative Report - General Procedure Date: 08/09/24 Pre-Op Diagnosis: left breast cancer Procedure Performed: Chemoport placement, Right internal jugular vein Post Op Diagnosis: left breast cancer - Procedure Note Primary Surgeon: Candi Horn DO Anesthesia Provider: Bria Arevalo CRNA Anesthesia Technique: General LMA, Local IV Fluids (mL): 800 Estimated Blood Loss (mL): 2 Indications: left breast cancer, neoadjuvant chemotherapy planned. Findings: 8Fr Power-port MR compatible implantable port placed to NYJ under US and fluoroscopic guidance Complications: none - Other Other Information/Narrative: The patient was met in the preoperative holding area where informed consent was confirmed and all questions and concerns were answered. The patient was then taken back to the operating room where a timeout was performed to ensure correct patient's site and surgical procedure. General anesthesia with LMA was induced by the anesthesia service. The chest and neck bilaterally were prepped and draped in standard sterile fashion. Antibiotics were administered. The right internal jugular vein was visualized in Trendelenburg position under ultrasound guidance and accessed with Seldinger technique and a wire was advanced into the vena cava which was confirmed with x-ray. A subcutaneous pocket at the right anterior chest 2 fingerbreadths below the clavicle was made with Bovie electrocautery after injecting local anesthetic. The port hub was secured in the pocket with 2-0 Vicryl at the inferior aspect and 2-0 Prolene at the right superior and left superior aspects. The catheter was then tunneled subcutaneously to the right neck adjacent to the wire using the tunneler. The catheter was then flushed with injectable saline. The catheter length was measured with x-ray and cut to 27 cm. The dilator and sheath were then advanced over the wire under fluoroscopic visualization, and the dilator and wire were removed. The catheter was then threaded through the peel-away sheath, and its final position of the superior vena cava 2 cm below the ritchie was confirmed on x-ray. The port and the catheter were then heparin locked after confirming that the blood could easily be aspirated. The subcutaneous pocket was irrigated remainder of local anesthetic injected, and the skin closed with 3-0 Vicryl deep dermal sutures followed by running 4-0 Monocryl subcuticular sutures the skin incision at the right neck was closed with a single 4-0 Monocryl subcuticular stitch Dermabond was applied there were no complications the patient was awoken and taken to the PACU where a postop chest x-ray was obtained. All sponge and needle counts were correct.
[2024-08-09] MEDS ORDERED: LACTATED RINGERS 1,000 ML IV SCH (12:00)
[2024-08-09 12:12] VITALS: BP 159/85; O2SAT 96
--- NOTE | 2024-08-09 12:27 | XRAY Report ---
PROCEDURE: Post Port Placement 1V CXR INDICATIONS: r/p PTX after central line placement TECHNIQUE: One view of the chest was acquired. COMPARISON: None. FINDINGS: Surgical changes and devices: Right chest wall port. Lungs and pleura: No pleural effusions or pneumothorax. Lungs are clear. Mediastinum: Mediastinal contours appear normal. Heart size is normal. Bones and chest wall: No suspicious bony lesions. Overlying soft tissues appear unremarkable. Hea led right humeral neck fracture. IMPRESSION: No pneumothorax. Reviewed by: Aime Schulz MD on 08/09/2024 12:25 PM PDT Approved by: Aime Schulz MD on 08/09/2024 12:25 PM PDT Station ID: [id number]
--- NOTE | 2024-08-09 12:28 | ANESTHESIA POST OP EVALUATION ---
Anesthesia Post Eval - Post Anesthesia Eval Vitals: Last Vital Signs Temp 36 C L 08/09/24 11:59 Pulse 59 L 08/09/24 11:59 Resp 14 08/09/24 11:59 BP 159/85 H 08/09/24 11:59 Pulse Ox 96 08/09/24 11:59 O2 Flow Rate CV Function Including HR & BP: Stable Pain Control: Satisfactory Nausea & Vomiting: Negative Mental Status: Baseline Respiratory Status: Airway Patent Hydration Status: Satisfactory Anesthesia Complications: None
--- NOTE | 2024-08-09 13:55 | XRAY Report ---
PROCEDURE: OR C-Arm Procedure INDICATIONS: PORTACATH PLACEMENT FLUORO TIME: 000.8 TECHNIQUE: Single intraoperative fluoroscopic image of upper chest were obtained. COMPARISON: None. FINDINGS: Intraoperative fluoroscopic image of right upper chest shows right chest wall Port-A-Cath tip project ing in the region of SVC. IMPRESSION: Fluoroscopy guidance was provided intraoperatively for right chest wall Port-A-Cath placement. Reviewed by: Brody Weeks MD on 08/09/2024 1:53 PM PDT Approved by: Brody Weeks MD on 08/09/2024 1:53 PM PDT Station ID: [id number]
== END 2024-08-09 07:55 | disposition home or self-care (01) ==
LOC: SDS 07:54
PROVIDERS: ATTEND Surgery
DX: C50.812 Malignant neoplasm of overlapping sites of left female breast (principal); Z17.0 Estrogen receptor positive status [ER+]; E66.9 Obesity, unspecified; Z68.33 Body mass index [BMI] 33.0-33.9, adult; E11.9 Type 2 diabetes mellitus without complications; Z79.84 Long term (current) use of oral hypoglycemic drugs; I10 Essential (primary) hypertension; Z87.891 Personal history of nicotine dependence; J44.9 Chronic obstructive pulmonary disease, unspecified
CPT/HCPCS: 36561; C1788; J7120

== ENCOUNTER 2024-08-14 07:28 | Outpatient (CLI) | payer MEDICARE ==
[2024-08-14] MEDS ORDERED: GADOTERATE MEGLUMINE 10 MMOL/20 ML VIAL ONE (07:30)
[2024-08-14 07:58] LABS: BASOPHILS # (AUTO) 0.1 10^3/uL (0.0-0.1); BASOPHILS % (AUTO) 0.9 %; EOSINOPHILS # (AUTO) 0.2 10^3/uL (0.0-0.7); EOSINOPHILS % (AUTO) 3.2 %; HCT - HEMATOCRIT 41.1 % (37.0-47.0); LYMPHOCYTES # (AUTO) 1.9 10^3/uL (1.5-3.5); MEAN CORPUSCULAR HEMOGLOBIN 28.6 pg (27.0-31.0); MEAN CORPUSCULAR HGB CONC 31.6 g/dL (32.0-36.0); MEAN CORPUSCULAR VOLUME 90.3 fL (81.0-99.0); MEAN PLATELET VOLUME 11.8 fL (7.9-10.8); MONOCYTES # (AUTO) 0.6 10^3/uL (0.0-1.0); MONOCYTES % (AUTO) 9.4 %; NEUTROPHILS % (AUTO) 58.2 %; PLT - PLATELET COUNT 170 10^3/uL (130-450); RED BLOOD COUNT 4.55 10^6/uL (4.20-5.40); RED CELL DISTRIBUTION WIDTH 14.5 % (12.0-15.0); WHITE BLOOD COUNT 6.8 x10^3/uL (4.8-10.8)
[2024-08-14 08:13] LABS: ALBUMIN 4.2 g/dL (3.2-5.5); ALBUMIN/GLOBULIN RATIO 1.6 (1.0-2.2); ALKALINE PHOSPHATASE 46 IU/L (42-121); ALT ALANINE AMINOTRANSFERASE 14 IU/L (10-60); AST ASPARTATE AMINOTRANSFERASE 14 IU/L (10-42); BILIRUBIN,TOTAL 0.6 mg/dL (0.2-1.0); BUN - BLOOD UREA NITROGEN 28 mg/dL (6-20); CARBON DIOXIDE - CO2 28 mmol/L (21-32); CHLORIDE 103 mmol/L (101-111); CHOL/HDL RATIO 2.9 (<4.4); CHOLESTEROL 114 mg/dL; CREATININE 1.7 mg/dL (0.6-1.3); GFR - MDRD 29 (>89); GLUCOSE 166 mg/dL (74-104); HDL CHOLESTEROL 40 mg/dL; LDL CHOLESTEROL,CALCULATED 55 mg/dL; LDL/HDL RATIO 1.4 (<4.4); POTASSIUM 3.8 mmol/L (3.5-4.5); SODIUM 139 mmol/L (135-145); TOTAL PROTEIN 6.9 g/dL (6.4-8.9); TRIGLYCERIDES 93 mg/dL; VLDL CHOLESTEROL 19 mg/dL
[2024-08-14 08:27] LABS: THYROID STIMULATING HORMONE 1.22 uIU/mL (0.34-5.60)
[2024-08-14 08:58] LABS: MICROALBUM/CREATININE RATIO,UR 29.3 ug/mg (<30.0); MICROALBUMIN,URINE 2.9 mg/dL
[2024-08-14 10:50] LABS: ESTIMATED AVERAGE GLUCOSE 143 mg/dL (70-100); HEMOGLOBIN A1c% 6.6 % (4.27-6.07)
[2024-08-14] MEDS: GADOTERATE MEGLUMINE 10 MMOL/20 ML VIAL IVP ONE (12:29)
--- NOTE | 2024-08-15 10:49 | MRI Report ---
BREAST MRI OF BOTH BREASTS: 08/14/2024 CLINICAL: New left breast cancer diagnosis. PROCEDURE: Breast BL W/WO INDICATIONS: BREAST CANCER CONTRAST: 18.2ml [place] TECHNIQUE: The patient was placed prone in a dedicated breast imaging coil. Precontrast axial STIR and 3D spoil ed GE without fat saturation sequences were obtained. Both before and after bolus injection of contr ast, sequential 1-minute axial 3D spoiled GE with fat saturation sequences for 3 time points, with abdi btraction images and maximum intensity projections (MIP's) generated. Delayed sagittal spoiled GE im ages with fat saturation were also obtained. Computer-aided detection, including computer algorithm analysis of MRI image data for lesion detectio n and characterization, pharmacokinetic analysis, with further physician review for interpretation, w as performed. COMPARISON: Mammogram 07/04/2024, 06/17/2024, 08/19/2019. Left breast ultrasound 07/04/2024, 06/17/2024. FINDINGS: Image quality: Excellent. There is mild background parenchymal enhancement. Right breast: -No mass or suspicious enhancement. -Right breast 8:00 middle depth a small lymph node. This is seen on prior mammograms dating back to . No measurable enhancement for kinetic analysis. Left breast: -Left breast 12:00 posterior depth infiltrating enhancing mass measuring 4.6 x 3.7 x 2.3 cm, ( a nd ). (On the diagnostic ultrasound 06/17/2024 the lesion was measured at 2.4 x 1.6 x 1.5 cm). K inetic analysis demonstrates slow initial phase and persistent delayed phase. Biopsy clip within the lesion. Biopsy proven invasive lobular carcinoma. -Left breast 11:00 oval mass at the skin middle depth measuring 1 x 0.9 x 0.9 cm, ( and ). Kinetic analysis demonstrates rapid initial phase and washout delayed phase. Probable additional dis ease near the skin just anterior. -Left breast 10:00 posteriorly depth enhancing mass measuring 1.1 x 1 x 1 cm, ( and ). Con sistent with a satellite nodule. There is ill-defined enhancement branching from this site extending into the inferior medial quadrant of the left breast. Kinetic analysis demonstrates slow initial phas e and persistent delayed phase. Most consistent with multicentric disease. -Left breast 1:00-2:00 middle and posterior depth segmental nonmass enhancement. Kinetic analysis dem onstrates slow initial phase and persistent delayed phase. Suspicious for additional disease. Miscellaneous: -Enlarged left axillary lymph node partially visualized. Kinetic analysis demonstrates slow initial p hase and persistent delayed phase. Biopsy-proven invasive lobular carcinoma. -No enlarged right axillary lymph nodes. IMPRESSION: [id number] MALIGNANCY 1. Right breast: No mass or suspicious enhancement. 2. Left breast: Multifocal and multicentric disease. -Biopsy-proven invasive lobular carcinoma at 12:00 posterior depth measuring 4.6 cm measures larger t pascual prior ultrasound. -Additional lesions upper inner, lower inner, and upper outer quadrants. -Additional lesion in the at the skin at 11:00 middle depth. 3. Enlarged left axillary lymph node. Biopsy-proven invasive lobular carcinoma. BIRADS 6 COMMENT: The imaging literature indicates that a negative contrast breast MRI examination has a high sensitivity and a moderate specificity for detecting and excluding invasive carcinomas to a detection threshold of 3-5 mm; nonetheless, appropriate clinical and mammographic follow-up are recommended. MRI is not sensitive for detecting DCIS (ductal carcinoma in situ) and may not detect large invasive neoplasms that show only minimal enhancement such as mucinous carcinoma. If there are suspicious lachelle cifications or clinically worrisome palpable masses, then biopsy should still be considered. Invasiv e neoplasms can be hidden by co-existent and benign enhancement caused by mastitis, hormone therapy e ffects, radiation therapy, , and recent biopsy or surgery. False positive examinations can occur in a number of circumstances, including breasts that have recently been subject to invasive pro cedures and those that contain atypical ductal hyperplasia, hormonally stimulated glandular tissue, f at necrosis, or radial scars. This exam was interpreted at Station ID: [id number]. Electronically Signed By: Mynor Blue M.D. slc/:08/14/2024 16:51:48 ACR BI-RADS Category 6: Qvcig-Ytnygy-Nwjwcb Malignancy BI-RADS CATEGORY: (6) - 6 Unspecified - other recall n/a LATERALITY: (B)
== END 2024-08-14 07:29 | disposition home or self-care (01) ==
LOC: LAB 07:28
PROVIDERS: ATTEND Surgery
DX: C50.912 Malignant neoplasm of unspecified site of left female breast (principal); E11.22 Type 2 diabetes mellitus with diabetic chronic kidney disease; N18.31 Chronic kidney disease, stage 3a; J44.9 Chronic obstructive pulmonary disease, unspecified; M19.90 Unspecified osteoarthritis, unspecified site; E11.40 Type 2 diabetes mellitus with diabetic neuropathy, unspecified; E78.5 Hyperlipidemia, unspecified; E03.9 Hypothyroidism, unspecified; R59.0 Localized enlarged lymph nodes
CPT/HCPCS: 36415; 77049; 80053; 80061; 82043; 82570; 83036; 84439; 84443; 84481; 85025; A9575; 83721